=== PATIENT | female | born 1965 | race African-American/Black ===

== ENCOUNTER 2017-08-03 13:52 | Inpatient (IN) | payer OTHER ==
[~2017-08-03] VITALS: Ht 165.1 cm; Wt 80.8 kg
--- NOTE | 2017-08-03 14:29 | NUR ---
MS RN OPENING NOTES RECEIVED CLINICAL TRIAL PT FROM DR. VIRGEN'S OFFICE. PT IS A/O X4. NO SOB OR SIGNS OF DISTRESS NOTED. BREATHING IS EVEN AND UNLABORED. PT'S BELONGINGS WERE ACCOUNTED FOR. BELONGINGS FORM SIGNED BY PT. CIGARETTE AND COFFEE URN ATTENDANT PLACED IN THE DRAWER BY THE NURSES STATION. PT. MADE AWARE OF SMOKING TIMES. PT ORIENTED TO THE ROOM AND UNIT. PT VERBALIZED UNDERSTANDING. ORDERS ACKNOWLEDGED FROM THE MD. WILL INPUT ORDERS AND BEGIN ADMISSION PROCESS.
[2017-08-03] MEDS ORDERED: MAGNESIUM HYDROXIDE 30 ML UDC PO PRN (15:30)
[2017-08-03] MEDS ORDERED: IBUPROFEN 200 MG TABLET PO PRN (15:30)
[2017-08-03] MEDS ORDERED: ACETAMINOPHEN ES 500 MG TABLET PO PRN (15:30)
[2017-08-03] MEDS ORDERED: MAG HYDROX/AL HYDROX/SIMETH 30 ML UDC PO PRN (15:30)
[2017-08-03 16:00] VITALS: BP 106/72
[2017-08-03 16:22] VITALS: BP 106/72
--- NOTE | 2017-08-03 19:00 | NUR ---
MS RN OPENING NOTES RECEIVE PT RESTING IN BED, A/OX 4. NO S/S OF DISTRESS OR SOB. SAFETY MEASURES IN PLACE, ON LOW BED TO ENSURE SAFETY. CALL LIGHT WITHIN REACH. WILL CONTINUE TO MONITOR
--- NOTE | 2017-08-03 19:04 | NUR ---
MS RN CLOSING NOTES PT. REMAINS STABLE SINCE ARRIVAL. NO CHANGES IN MOOD OR BEHAVIOR DURING SHIFT. ALL NEEDS WERE ANTICIPATED FOR AND MET ALL ORDERS CARRIED OUT ACCORDINGLY. WILL ENDORSE TO NIGHTSHIFT NURSE FOR RANDOLPH
[2017-08-03 20:00] VITALS: BP 106/72
[2017-08-03 20:10] VITALS: BP 106/72
[2017-08-03] MEDS: ARIPIPRAZOLE 5 MG TABLET PO SCH (21:54)
[2017-08-03] MEDS: MIRTAZAPINE 15 MG TABLET PO SCH (21:55)
--- NOTE | 2017-08-04 06:45 | NUR ---
MS RN CLOSING NOTES PATIENT STILL COMFORTABLY ASLEEP AND EASILY AWAKEN, HEAD OF BED ELEVATED FOR BETTER LUNG EXPANSION AND GOOD CIRCULATION. NO PSYCHIATRIC INSTABILITY. RESPIRATIONS EVEN AND UNLABORED, NO S/S OF DISTRESS NOTED, PATIENT IN STABLE CONDITION, NO COMPLAINS OF PAIN AT THIS TIME 0/10. NURSING CARE RENDERED, NEEDS ATTENDED AND ANTICIPATED, KEPT CLEAN AND DRY AND COMFORTABLE, GOOD SKIN CARE PROVIDED.FREQUENT VISUAL CHECK DONE FOR SAFETY EVERY 2 HOURS. OFFLOAD AT ALL TIMES. SAFE HAZARD FREE ENVIRONMENT PROVIDED. CALL LIGHT WITHIN EASY TO REACH, ON LOW BED AT ALL TIMES TO ENSURE SAFETY, WILL ENDORSE TO THE NEXT SHIFT CONTINUE PLAN OF CARE.
--- NOTE | 2017-08-04 07:33 | NUR ---
MS RN INITIAL NOTES REPORT RECEIVED AT THE BEDSIDE. PATIENT IS SLEEPING. NO SOB OR DISTRESS NOTED AT THIS TIME. PATIENT DOES NOT APPEAR TO BE IN PAIN, NO FACIAL GRIMACE NOTED. BED IN A LOW POSITION, CALL LIGHT WITHIN PATIENT REACH. WILL CONTINUE TO MONITOR.
[2017-08-04 08:00] VITALS: BP 113/69
--- NOTE | 2017-08-04 08:45 | NUR ---
RN NOTES PATIENT AWAKE, NO COMPLAINTS OF PAIN OR AGITATION. PATIENT DENIES SI/HI. PATIENT STATES SHE WAS HEARING SOME VOICES LAST NIGHT, BUT NOT AT THIS MOMENT. EXPLAINED TO PATIENT TO INFORM ME OF ANYTHING SHE NEEDS OR WITH ANY CONCERNS.
[2017-08-04] MEDS ORDERED: ARIP30TA PO (09:54)
[2017-08-04] MEDS ORDERED: DIPH25CA6 PO (09:54)
[2017-08-04 16:00] VITALS: BP 114/73
--- NOTE | 2017-08-04 18:37 | NUR ---
RN CLOSING NOTES NO SIGNIFICANT CHANGES IN PATIENT CONDITION THROUGHOUT THE SHIFT. NO SOB OR DISTRESS NOTED AT THIS TIME. PATIENT DENIES PAIN. BED IN A LOW POSITION, CALL LIGHT WITHIN PATIENT REACH, SITTER IS AT THE BEDSIDE. WILL ENDORSE FOR RANDOLPH.
--- NOTE | 2017-08-04 19:00 | NUR ---
MS RN OPENING NOTES RECEIVE PT RESTING IN BED, A/OX 2. NO S/S OF RESPIRATORY DISTRESS OR SOB. SAFETY MEASURES IN PLACE, ON LOW BED TO ENSURE SAFETY. CALL LIGHT WITHIN REACH. WILL CONTINUE TO MONITOR Addendum: 08/05/17 at 0709 by KISHORE DURAN RN ADDENDUM: PT A/O X 4,
[2017-08-04 20:00] VITALS: BP 121/72
[2017-08-04] MEDS: ARIPIPRAZOLE 5 MG TABLET PO SCH (21:43)
[2017-08-04] MEDS: MIRTAZAPINE 15 MG TABLET PO SCH (21:44)
[2017-08-04 22:53] VITALS: BP 121/72
--- NOTE | 2017-08-05 07:10 | NUR ---
MS RN CLOSING NOTES PATIENT ASLEEP AND EASILY AWAKEN, IN STABLE CONDITION, NO CHANGE OF CONDITION THROUGHOUT THE SHIFT. SEMI FOWLERS, NO PSYCHIATRIC INSTABILITY. RESPIRATIONS EVEN AND UNLABORED, APPEARS NOT IN RESPIRATORY DISTRESS.TOLERATING ROOM AIR 02 SAT 98% NO COMPLAINS OF PAIN AT THIS TIME. NURSING CARE RENDERED, KEPT CLEAN AND DRY AND COMFORTABLE, NEEDS ATTENDED AND ANTICIPATED,GOOD SKIN CARE PROVIDED. SAFE HAZARD FREE ENVIRONMENT PROVIDED. OFFLOAD AT ALL TIMES. CALL LIGHT WITHIN EASY TO REACH, FREQUENT VISUAL CHECK DONE FOR SAFETY EVERY 2 HOURS.ON LOW BED AT ALL TIMES TO ENSURE SAFETY, WILL ENDORSE TO THE NEXT SHIFT CONTINUE PLAN OF CARE
[2017-08-05 08:00] VITALS: BP 113/71
[2017-08-05 16:00] VITALS: BP 125/89
--- NOTE | 2017-08-05 18:44 | NUR ---
RN CLOSING NOTES NO SIGNIFICANT CHANGES IN PATIENT CONDITION THROUGHOUT THE SHIFT. NO SOB OR DISTRESS NOTED AT THIS TIME. PATIENT DENIES PAIN AT THIS TIME. BED IN A LOW POSITION, CALL LIGHT WITHIN PATIENT REACH. WILL ENDORSE FOR RANDOLPH.
[2017-08-05 20:00] VITALS: BP 117/73
[2017-08-05] MEDS: MIRTAZAPINE 15 MG TABLET PO SCH (21:28)
[2017-08-05] MEDS: ARIPIPRAZOLE 5 MG TABLET PO SCH (21:28)
[2017-08-05] MEDS: ZOLPIDEM TARTRATE 10 MG TABLET PO PRN (21:35)
[2017-08-05] MEDS: LORAZEPAM 1 MG TABLET FOR INSOMNIA PO PRN (21:36)
--- NOTE | 2017-08-06 06:50 | NUR ---
MS RN NOTES AWAKE & RESPONSIVE. NOT IN ANY DISTRESS. NO SOB NOTED. DENIES ANY PAIN OR DISCOMFORT AT THIS TIME. WITH IV-HL PATENT & INTACT. MONITORED ACCORDINGLY. SLEPT FOR 8 HOURS. CALL LIGHT WITHIN REACH. BED IN LOWEST POSITION. SR UP X 2 FOR SAFETY. WILL ENDORSE TO NEXT SHIFT.
--- NOTE | 2017-08-06 07:30 | NUR ---
MS RN AM NOTES PT ASLEEP, AROUSES TO NAME AND TOUCH, AAO X 4, ON ROOM AIR, NOT IN ANY DISTRESS. DENIES ANY PAIN AT THIS TIME. NO IV ACCESS. AMBULATORY, NO SKIN ISSUES. CALL LIGHT WITHIN REACH. BED LOW LOCKED. SR UP X 2, INSTRUCTED TO CALL FOR ASSISTANCE. SAFETY MEASURES IN PLACE. WILL CONTINUE TO MONITOR.
[2017-08-06 08:00] VITALS: BP 122/70
--- NOTE | 2017-08-06 14:24 | NUR ---
MS RN NOTES DR. VIRGEN AT BEDSIDE.
[2017-08-06] MEDS: LORAZEPAM 1 MG TABLET FOR AGITATION PO PRN (15:40)
[2017-08-06 16:00] VITALS: BP 116/75
--- NOTE | 2017-08-06 18:09 | NUR ---
MS RN NOTES PT RESTING IN BED, AAO X 4, ON ROOM AIR, NOT IN ANY DISTRESS. DENIES ANY PAIN AT THIS TIME. NO IV ACCESS. AMBULATORY, NO SKIN ISSUES. CALL LIGHT WITHIN REACH. BED LOW LOCKED. SR UP X 2, INSTRUCTED TO CALL FOR ASSISTANCE. VSS. SAFETY MEASURES IN PLACE. ALL NEEDS MET. WILL ENDORSE TO NEXT SHIFT FOR RANDOLPH.
--- NOTE | 2017-08-06 20:00 | NUR ---
MS RN NOTED: PATIENT RESTING IN BED, NO ACUTE DISTRESS NOTED. BREATHING EVEN AND UNLABORED, NO SOB NOTED. PATIENT CALM AND COOPERATIVE AT THIS TIME. BED LOCKED AND IN LOWEST POSITION, CALL LIGHT IN REACH, WILL CONTINUE TO MONITOR.
[2017-08-06 20:51] VITALS: BP 115/76
[2017-08-06] MEDS: ARIPIPRAZOLE 5 MG TABLET PO SCH (21:53)
[2017-08-06] MEDS: MIRTAZAPINE 15 MG TABLET PO SCH (21:53)
[2017-08-06] MEDS: ZOLPIDEM TARTRATE 10 MG TABLET PO PRN (22:37)
[2017-08-06] MEDS: LORAZEPAM 1 MG TABLET FOR INSOMNIA PO PRN (22:37)
--- NOTE | 2017-08-06 22:45 | NUR ---
MS RN NOTE: PATIENT REQUEST FOR ANXIETY MEDICATION AND SLEEP MEDICATIONS. ATIVAN 1MG ORAL AND AMBIEN 10MG GIVEN PER MD ORDER. WILL CONTINUE TO MONITOR.
--- NOTE | 2017-08-07 06:10 | NUR ---
MS RN NOTED: PATIENT RESTING IN BED, NO ACUTE DISTRESS NOTED. BREATHING EVEN AND UNLABORED, NO SOB NOTED. PATIENT WAS CALM AND COOPERATIVE THROUGHOUT SHIFT. PATIENT SLEPT ABOUT 7 HOURS. BED LOCKED AND IN LOWEST POSITION, CALL LIGHT IN REACH, WILL ENDORSE TO DAY NURSE TO CONTINUE WITH PLAN OF CARE.
[2017-08-07 08:00] VITALS: BP 103/70
[2017-08-07] MEDS: LORAZEPAM 1 MG TABLET FOR AGITATION PO PRN (10:25)
[2017-08-07 16:00] VITALS: BP 107/71
[2017-08-07 18:00] VITALS: BP 107/71
--- NOTE | 2017-08-07 18:54 | NUR ---
MS RN NOTES PT RESTING IN BED, AAO X 4, ON ROOM AIR, NOT IN ANY DISTRESS. DENIES ANY PAIN AT THIS TIME. NO IV ACCESS. AMBULATORY, NO SKIN ISSUES. CALL LIGHT WITHIN REACH. BED LOW LOCKED. SR UP X 2, INSTRUCTED TO CALL FOR ASSISTANCE. VSS. SAFETY MEASURES IN PLACE. ALL NEEDS MET. WILL ENDORSE TO NEXT SHIFT FOR RANDOLPH. PT SEEN BY DR. VIRGEN - NO NEW ORDERS.
[2017-08-07 20:00] VITALS: BP 124/80
[2017-08-07] MEDS: MIRTAZAPINE 15 MG TABLET PO SCH (22:14)
[2017-08-07] MEDS: ARIPIPRAZOLE 5 MG TABLET PO SCH (22:14)
--- NOTE | 2017-08-07 23:00 | NUR ---
MS RN NOTE: PATIENT REQUEST FOR ANXIETY MEDICATION AND SLEEP MEDICATIONS. ATIVAN 1MG ORAL AND AMBIEN 10MG GIVEN PER MD ORDER. WILL CONTINUE TO MONITOR.
[2017-08-07] MEDS: LORAZEPAM 1 MG TABLET FOR INSOMNIA PO PRN (23:01)
[2017-08-07] MEDS: ZOLPIDEM TARTRATE 10 MG TABLET PO PRN (23:01)
--- NOTE | 2017-08-08 07:15 | NUR ---
MS RN OPENING RECEIVED PATIENT A/OX4 DENIES SOB, DIFFICULTY BREATHING OR PAIN. ALL NEEDS MET AND IN REACH. CALL LIGHT IN REACH, BED LOWERED AND LOCKED, RAILS UPX3 FOR SAFETY AND WILL ROUND Q2H OR LESS PER NEEDS
[2017-08-08 08:00] VITALS: BP 106/68
[2017-08-08] MEDS: LORAZEPAM 1 MG TABLET FOR AGITATION PO PRN ×2 (11:00→17:09)
--- NOTE | 2017-08-08 19:37 | NUR ---
MS RN CLOSING PATIENT STABLE NO COMPLICATIONS NO CHANGES. ALL NEEDS MET. CARE ENDORSED TO FELIZ CONLEY FOR RANDOLPH
--- NOTE | 2017-08-08 19:40 | NUR ---
MS/RN OPENING NOTES PT AWAKE, SITTING IN THE CHAIR. A/OX4. ON RA, BREATHING EVEN AND UNLABORED. DENIES SOB, PAIN OR ANXIETY AT THIS TIME. BED IN LOW/LOCKED POSITION, CALL LIGHT IN REACH. SIDE RAILS UPX2. WILL CONTINUE TO MONITOR
[2017-08-08 20:00] VITALS: BP 120/75
[2017-08-08] MEDS ORDERED: MIRTAZAPINE 15 MG TABLET PO SCH (22:00)
[2017-08-08] MEDS: ARIPIPRAZOLE 5 MG TABLET PO SCH (22:04)
[2017-08-08] MEDS: LORAZEPAM 1 MG TABLET FOR INSOMNIA PO PRN (23:12)
[2017-08-08] MEDS: ZOLPIDEM TARTRATE 10 MG TABLET PO PRN (23:12)
--- NOTE | 2017-08-09 07:30 | NUR ---
MS/RN Patient received Patient received from shift nurse manager. No needs at this time, call light within reach, will continue to monitor to ensure safety.
--- NOTE | 2017-08-09 07:40 | NUR ---
MS/RN CLOSING NOTES PT AWAKE, SITTING IN THE CHAIR. A/OX4. ON RA, BREATHING EVEN AND UNLABORED. DENIES SOB OR PAIN AT THIS TIME. SLEPT APPROX. 6HOURS LAST NIGHT. ALL NEEDS MET AND ATTENDED. BED IN LOW/LOCKED POSITION WITH CALL LIGHT IN REACH. SIDE RAILS UPX2. ENDORSED TO AM SHIFT RANDOLPH.
[2017-08-09 08:00] VITALS: BP 110/71
--- NOTE | 2017-08-09 10:30 | NUR ---
MS/ordering box operator Patient stating that she continues to hear voices but does not have report any visual hallucinations.
[2017-08-09] MEDS: LORAZEPAM 1 MG TABLET FOR AGITATION PO PRN ×2 (11:07→17:09)
--- NOTE | 2017-08-09 11:10 | NUR ---
MS/RN Ativan 1mg ativan given at patient's request.
[2017-08-09 16:00] VITALS: BP 98/66
--- NOTE | 2017-08-09 17:10 | NUR ---
MS/RN Ativan Img ativan administered at 1705 per patient request.
--- NOTE | 2017-08-09 18:15 | NUR ---
MS/RN End note Patient remains calm and cooperative throughout the shift. No behavior concerns, continues to admit to auditory hallucinations. Awaiting review by Dr Andersen, will start trial medications tomorrow. Will endorse to lathe hand.
--- NOTE | 2017-08-09 19:30 | NUR ---
MS/RN OPENING NOTES PT RECEIVED WITH EYES CLOSED IN BED. EASILY AROUSABLE. BREATHING EVEN AND UNLABORED. PT AWARE OF NPO STATUS TONIGHT AT 2100. ADMITS TO AUDITORY HALLUCINATIONS, NO THOUGHTS OF S/I. BED IN LOW/LOCKED POSITION. CALL LIGHT IN REACH. SIDE RAILS UPX2. WILL CONTINUE TO MONITOR
[2017-08-09 20:00] VITALS: BP 101/60
--- NOTE | 2017-08-09 21:30 | NUR ---
MS/RN NOTES SPOKE TO DR. VIRGEN. OKAY TO HAVE WATER AND SMOKE PER HOSPITAL SCHEDULE.
--- NOTE | 2017-08-10 07:25 | NUR ---
MS/RN CLOSING NOTES PT AWAKE, ON ROOM AIR, BREATHING EVEN AND UNLABORED. DENIES SOB OR PAIN. REMAINED NPO SINCE 2099 YESTERDAY. PT SLEPT APPROX 6 HOURS LAST NIGHT. MADE PT COMFORTABLE DURING SHIFT. BED IN LOW/LOCKED POSITION WITH CALL LIGHT IN REACH. SIDE RAILS UPX2. ENDORSED TO AM SHIFT RANDOLPH.
--- NOTE | 2017-08-10 07:30 | NUR ---
MS/RN Patient received Patient received from shift production supervisor. No needs at this time, will continue to monitor.
[2017-08-10 08:00] VITALS: BP 106/68
[2017-08-10] MEDS: INVEST MED MK-8189 MISC 1 TAB EA PO SCH (09:00)
[2017-08-10] MEDS: INVEST MED MK-8189 MISC 1 CAP EA PO SCH (09:00)
--- NOTE | 2017-08-10 09:53 | NUR ---
MS/RN Diet Patient back from Dr Andersen's office, may now eat and drink. First dose of investigational medication given in office.
[2017-08-10] MEDS: LORAZEPAM 1 MG TABLET FOR AGITATION PO PRN ×2 (10:42→17:12)
--- NOTE | 2017-08-10 13:52 | NUR ---
MS/RN Rounds Patient cooperative with plan of care at this time. Will continue to mintiro and ensure safety.
[2017-08-10 16:00] VITALS: BP 107/66
--- NOTE | 2017-08-10 18:16 | NUR ---
MS/RN End note Patient has remained calm and cooperative throughout the shift, no behavioral concerns. Last ativan given at 1710 (1mg). Seen by Dr Andersen - no new orders. Will endorse to manager integration.
--- NOTE | 2017-08-10 19:30 | NUR ---
MS RN OPENING NOTES: PATIENT IN BED, AOX4, ON ROOM AIR, BREATHING EVEN AND UNLABORED. APPEARS CALM AND IN NO DISTRESS. DENIES PAIN. ALSO DENIES ANY VISUAL OR AUDITORY HALLUCINATION AT THIS TIME. PROVIDED FOR COMFORT AND SAFETY. BED IN LOWEST AND LOCKED POSITION, SIDERAILS UPX2. WILL CONT TO MONITOR.
[2017-08-10 20:00] VITALS: BP 110/72
[2017-08-10] MEDS: LORAZEPAM 1 MG TABLET FOR INSOMNIA PO PRN (22:10)
--- NOTE | 2017-08-11 06:56 | NUR ---
MS RN CLOSING NOTES: PATIENT IN BED, AOX4, ON ROOM AIR, BREATHING EVEN AND UNLABORED. APPEARS CALM AND IN NO DISTRESS. NO VERBALIZATION OF ANY AUDITORY OR VISUAL HALLUCINATION THROUGH SHIFT. WAS ABLE TO HAVE 7 HRS OF SLEEP. PROVIDED FOR COMFORT AND SAFETY. BED IN LOWEST AND LOCKED POSITION. SIDERAILS UPX2. NO ACUTE CHANGE IN CONDITION NOTED THROUGH SHIFT. WILL ENDORSE TO AM RN FOR RANDOLPH.
--- NOTE | 2017-08-11 07:25 | NUR ---
RN Initial Notes: Patient resting in bed. Patient alert oriented x4. Non-labored breathing noted on room air.Patient appears calm. No hallucinations noted. Patient denies pain. Bed in lowest locked position. Call light within reach. Will continue to monitor
[2017-08-11 08:00] VITALS: BP 109/70
[2017-08-11] MEDS: INVEST MED MK-8189 MISC 1 CAP EA PO SCH (09:16)
[2017-08-11] MEDS: INVEST MED MK-8189 MISC 1 TAB EA PO SCH (09:16)
--- NOTE | 2017-08-11 11:00 | NUR ---
RN Notes: Patient's facial expressions and body movements indicate anxiety. Patient educated to rest and take deep breaths. Ativan to be administered
[2017-08-11] MEDS: LORAZEPAM 1 MG TABLET FOR AGITATION PO PRN (11:15)
[2017-08-11 16:00] VITALS: BP 112/72
--- NOTE | 2017-08-11 19:30 | NUR ---
RN Closing Notes: Patient resting in bed. Patient alert oriented x4. Non-labored breathing noted on room air.Patient appears calm. No hallucinations noted. No shortness of breath noted. Patient denies pain. Bed in lowest locked position. Call light within reach. Endorsed to next shift
--- NOTE | 2017-08-11 19:30 | NUR ---
RN OPENING NOTES: PATIENT SITTING ON CHAIR, AOX4, ON ROOM AIR, BREATHING EVEN AND UNLABORED. APPEARS CALM AND IN NO DISTRESS. DENIES ANY VISUAL OR AUDITORY HALLUCINATION AT THIS TIME. PROVIDE FOR COMFORT AND SAFETY. WILL CONT TO MONITOR.
[2017-08-11 20:00] VITALS: BP 108/63
[2017-08-11] MEDS: LORAZEPAM 1 MG TABLET FOR INSOMNIA PO PRN (21:09)
[2017-08-11] MEDS: ZOLPIDEM TARTRATE 10 MG TABLET PO PRN (22:07)
--- NOTE | 2017-08-11 23:10 | NUR ---
RN NOTES: PATIENT STILL UNABLE TO SLEEP AND REQUESTED FOR SLEEP AID. ADMINISTERED AMBIEN 10 MG PO. EDUCATED PATIENT RE RISK OF FALL, PT VERBALIZED AGREEMENT.
--- NOTE | 2017-08-12 06:23 | NUR ---
MS RN CLOSING NOTES: PATIENT IN BED, AOX4, ON ROOM AIR, BREATHING EVEN AND UNLABORED. APPEARS CALM AND IN NO DISTRESS. DID NOT VERBALIZE HAVING ANY VISUAL OR AUDITORY HALLUCINATION. PATIENT WAS ABLE TO HAVE 7 HRS OF SLEEP. PROVIDED FOR COMFORT AND SAFETY. BED IN LOWEST AND LOCKED POSITION, SIDERAILS UPX3. WILL ENDORSE TO AM RN FOR RANDOLPH.
--- NOTE | 2017-08-12 07:30 | NUR ---
MS/RN Patient received Patient received from awake overnight counselor. No needs at this time, calm and cooperative with plan of care. Will continue to monitor and ensure safety.
[2017-08-12 08:00] VITALS: BP 104/71
[2017-08-12] MEDS: INVEST MED MK-8189 MISC 1 TAB EA PO SCH (08:10)
[2017-08-12] MEDS: INVEST MED MK-8189 MISC 1 CAP EA PO SCH (08:10)
--- NOTE | 2017-08-12 09:00 | NUR ---
MS/RN Medications Investigational medications administered as ordered (one pill, one capsule). Starting tomorrow, dose to be increased to two pills and two capsules for three days.
[2017-08-12] MEDS: LORAZEPAM 1 MG TABLET FOR AGITATION PO PRN ×2 (10:11→16:21)
--- NOTE | 2017-08-12 10:20 | NUR ---
MS/RN Ativan 1mg ativan administered at patients request.
--- NOTE | 2017-08-12 11:26 | NUR ---
MS/RN Hallucinations Patient admits to hearing voices and to one episode of visual hallucination, stated that she saw somebody outside the window. Will continue to monitor and ensure safety.
[2017-08-12 16:00] VITALS: BP 111/73
--- NOTE | 2017-08-12 16:28 | NUR ---
MS/RN Ativan 1mg ativan given per patient request for anxiety.
[2017-08-12 16:59] VITALS: BP 111/73
--- NOTE | 2017-08-12 18:15 | NUR ---
MS/RN End note Patient remained calm and cooperative throughout the shift, no behavior concerns or outbursts. Partner at bedside, all questions and concerns addressed. Will continue to monitor and endorse to restaurant shift leader.
--- NOTE | 2017-08-12 19:30 | NUR ---
MS RN OPENING NOTES: PATIENT SITTING ON CHAIR, AOX4, ON ROOM AIR, BREATHING EVEN AND UNLABORED. APPEARS CALM AND IN NO DISTRESS. DENIES ANY VISUAL OR AUDITORY HALLUCINATION. PROVIDED FOR COMFORT AND SAFETY. BED IN LOWEST AND LOCKED POSITION, SIDERAILS UP X3. WILL CONT TO MONITOR.
[2017-08-12 20:00] VITALS: BP 108/68
[2017-08-12] MEDS: LORAZEPAM 1 MG TABLET FOR INSOMNIA PO PRN (22:02)
[2017-08-12] MEDS: ZOLPIDEM TARTRATE 10 MG TABLET PO PRN (23:00)
--- NOTE | 2017-08-13 06:47 | NUR ---
MS RN CLOSING NOTES: PATIENT IN BED, ASLEEP AT THIS TIME, ON ROOM AIR, BREATHING EVEN AND UNLABORED. APPEARS CALM AND IN NO DISTRESS. DID NOT VERBALIZE HAVING ANY VISUAL OR AUDITORY HALLUCINATION. PATIENT WAS ABLE TO HAVE 8 HRS OF SLEEP. PROVIDED FOR COMFORT AND SAFETY. BED IN LOWEST AND LOCKED POSITION, SIDERAILS UPX3. WILL ENDORSE TO AM RN FOR RANDOLPH.
--- NOTE | 2017-08-13 07:25 | NUR ---
ms rn initial notes Clinical trial patient: Received in bed, asleep, head fo bed elevated, no SOB or distress noted, on room air and tolerated well. No IV access. Stable at this time. Kept patient clean and comfortable in bed, call light with in patient reach, will continue to monitor accordingly.
[2017-08-13 08:00] VITALS: BP 113/73
[2017-08-13] MEDS: INVEST MED MK-8189 MISC 2 TAB EA PO SCH (08:59)
[2017-08-13] MEDS: INVEST MED MK-8189 MISC 2 CAP EA PO SCH (08:59)
[2017-08-13] MEDS: LORAZEPAM 1 MG TABLET FOR AGITATION PO PRN ×2 (09:53→16:35)
[2017-08-13 16:00] VITALS: BP 118/70
--- NOTE | 2017-08-13 19:29 | NUR ---
ms rn closing notes All needs provided, attended, and anticipated. Endorsed to next shift RN to continue care.
[2017-08-13 20:01] VITALS: BP 100/65
[2017-08-13] MEDS: ZOLPIDEM TARTRATE 10 MG TABLET PO PRN (22:18)
[2017-08-13] MEDS: LORAZEPAM 1 MG TABLET FOR INSOMNIA PO PRN (22:18)
--- NOTE | 2017-08-13 22:30 | NUR ---
MS RN NOTE: PATIENT REQUEST FOR ANXIETY MEDICATION AND SLEEP MEDICATIONS. ATIVAN 1MG ORAL AND AMBIEN 10MG GIVEN PER MD ORDER. WILL CONTINUE TO MONITOR.
--- NOTE | 2017-08-14 07:14 | NUR ---
ms rn initial notes Received patient in bed, asleep, head of bed elevated, no SOB or distress noted, on room air and tolerated well. No IV access MD aware. No facial grimace noted. Kept patient clean and comfortable in bed, call light with in patient reach, will continue to monitor accordingly. Alert and oriented x 4, verbally responsive and able to make needs known.
[2017-08-14 08:00] VITALS: BP_SYST 105; BP_SYST 120; BP_DIAS 71
[2017-08-14] MEDS: INVEST MED MK-8189 MISC 2 TAB EA PO SCH (08:52)
[2017-08-14] MEDS: INVEST MED MK-8189 MISC 2 CAP EA PO SCH (08:52)
[2017-08-14] MEDS: LORAZEPAM 1 MG TABLET FOR AGITATION PO PRN (10:04)
[2017-08-14 16:00] VITALS: BP_SYST 114; BP_SYST 115; BP_DIAS 66; BP_DIAS 71
--- NOTE | 2017-08-14 19:12 | NUR ---
ms rn closing notes All needs provided, attended, and anticipated. Kept patient clean and comfortable in bed, call light with in patient reach, endorsed to next shift RN to continue care.
[2017-08-14 20:00] VITALS: BP 106/71
[2017-08-14] MEDS: LORAZEPAM 1 MG TABLET FOR INSOMNIA PO PRN (21:47)
--- NOTE | 2017-08-14 23:00 | NUR ---
MS2/RN PATIENT IS SLEEPING AT THIS TIME, APPEAR COMFORTABLE, NO DISTRESS NOTED, CALL LIGHT IN REACH. WILL MONITOR.
--- NOTE | 2017-08-15 06:16 | NUR ---
MS/RN PATIENT STILL SLEEPING, APPEAR COMFORTABLE, BREATHING EVEN AND UNLABORED, CALL LIGHT IN REACH. WILL CONTINUE TO MONITOR.
--- NOTE | 2017-08-15 08:00 | NUR ---
MS PIPER AM CLINICAL TRIAL NOTES: PATIENT SITTING ON CHAIR, AOX4, ON ROOM AIR, BREATHING EVEN AND UNLABORED. APPEARS CALM AND IN NO DISTRESS. DENIES ANY VISUAL OR AUDITORY HALLUCINATION. PT COMPLIANT WITH CLINICAL MEDS GIVEN. PROVIDED COMFORT AND SAFETY.WITH SMOKING PRIVILEGES PER PROTOCOL. BED IN LOWEST AND LOCKED POSITION, SIDERAILS UP X3. WILL CONT TO MONITOR.
[2017-08-15 08:17] VITALS: BP 97/65
[2017-08-15] MEDS: INVEST MED MK-8189 MISC 2 CAP EA PO SCH (08:57)
[2017-08-15] MEDS: INVEST MED MK-8189 MISC 2 TAB EA PO SCH (08:57)
[2017-08-15 16:23] VITALS: BP 108/64
--- NOTE | 2017-08-15 18:00 | NUR ---
PT SITTING IN BED.FOLLOWS SMOKING PRIVILEGES PER HOSPITAL PROTOCOL.DENIES PAIN OR DISTRESS.PLEASANT TO STAFF.
--- NOTE | 2017-08-15 20:00 | NUR ---
MS2/RN RECEIVE PATIENT AWAKE, ALERT, ORIENTED, COMFORTABLY SITING IN CHAIR AT BEDSIDE, NO C/O PAIN, NO DISTRESS NOTED, CALL LIGHT IN REACH, WILL CONTINUE TO MONITOR.
[2017-08-15 20:01] VITALS: BP 104/62
[2017-08-15] MEDS: LORAZEPAM 1 MG TABLET FOR INSOMNIA PO PRN (21:42)
--- NOTE | 2017-08-16 | NUR ---
MS2/RN PATIENT IS SLEEPING AT THIS TIME, AROUSABLE, NO DISTRESS NOTED, CALL LIGHT IN REACH. WILL CONTINUE TO MONITOR.
--- NOTE | 2017-08-16 06:20 | NUR ---
MS2/RN STILL SLEEPING, AROUSABLE, COMFORTABLE, ALL NEEDS ATTENDED AT THIS TIME. ALL NEEDS ATTENDED AT THIS TIME. WILL CONTINUE TO MONITOR.
--- NOTE | 2017-08-16 07:30 | NUR ---
MS/RN Patient received Patient received from cake winder. All needs attended, call light within reach, will continue to monitor and ensure safety.
[2017-08-16] MEDS: INVEST MED MK-8189 MISC 3 CAP EA PO SCH (07:48)
[2017-08-16] MEDS: INVEST MED MK-8189 MISC 3 TAB EA PO SCH (07:48)
[2017-08-16 08:00] VITALS: BP 111/68
--- NOTE | 2017-08-16 09:00 | NUR ---
MS/RN Medications Investigational medications (three pills/three capsules) administered as ordered.
--- NOTE | 2017-08-16 13:47 | NUR ---
MS/RN Hallucinations Patient admits to having auditory hallucinations and some visual disturbances, stated that she has been seeing shadows.
[2017-08-16 16:00] VITALS: BP 98/62
--- NOTE | 2017-08-16 18:23 | NUR ---
MS/RN End note No changes in plan of care. Has remained calm and cooperative throughout shift, no behavior concerns. Call light within reach, will endorse to overnight houseperson. PER STUDY ORDERS, NO ATIVAN TO BE GIVEN AFTER [address] REVIEWED BY DR VIRGEN TOMORROW.
[2017-08-16 20:00] VITALS: BP 97/64
--- NOTE | 2017-08-17 06:47 | NUR ---
MS RN NOTES AWAKE & RESPONSIVE. NOT IN ANY DISTRESS. NO SOB NOTED. DENIES ANY PAIN OR DISCOMFORT AT THIS TIME. SLEPT FOR 8 HOURS. MONITORED ACCORDINGLY. CALL LIGHT WITHIN REACH. BED IN LOWEST POSITION. SR UP X 2 FOR SAFETY. WILL ENDORSE TO NEXT SHIFT.
--- NOTE | 2017-08-17 07:30 | NUR ---
MS/RN Patient received Patient received from night warehouse manager. No needs at this time, denies pain or discomfort. Call light within reach, will continue to monitor and ensure safety.
[2017-08-17] MEDS: INVEST MED MK-8189 MISC 3 CAP EA PO SCH (07:51)
[2017-08-17] MEDS: INVEST MED MK-8189 MISC 3 TAB EA PO SCH (07:52)
[2017-08-17 08:00] VITALS: BP 109/68
--- NOTE | 2017-08-17 08:08 | NUR ---
MS/RN Medications Trial medications administered as ordered. (three pill/three capsules)
[2017-08-17 08:25] VITALS: BP 109/68
[2017-08-17] MEDS: LORAZEPAM 1 MG TABLET FOR AGITATION PO PRN (13:48)
--- NOTE | 2017-08-17 13:51 | NUR ---
MS/RN Ativan Ativan 1mg removed from pyxis but dropeed on floor by patient. Second pill removed and administered.
[2017-08-17 16:00] VITALS: BP 106/55
[2017-08-17 16:35] VITALS: BP 108/55
--- NOTE | 2017-08-17 18:52 | NUR ---
MS/RN End note No changes in plan of care, will endorse to cnc service technician.
[2017-08-17 20:00] VITALS: BP 99/68
[2017-08-17] MEDS: LORAZEPAM 1 MG TABLET FOR INSOMNIA PO PRN (21:28)
[2017-08-17] MEDS: ZOLPIDEM TARTRATE 10 MG TABLET PO PRN (21:28)
--- NOTE | 2017-08-17 21:30 | NUR ---
MS RN NOTE: PATIENT REQUEST FOR ANXIETY MEDICATION AND SLEEP MEDICATIONS. ATIVAN 1MG ORAL AND AMBIEN 10MG GIVEN PER MD ORDER. WILL CONTINUE TO MONITOR.
[2017-08-18 08:00] VITALS: BP 112/73
[2017-08-18] MEDS: INVEST MED MK-8189 MISC 3 TAB EA PO SCH (08:06)
[2017-08-18] MEDS: INVEST MED MK-8189 MISC 3 CAP EA PO SCH (08:06)
[2017-08-18 16:00] VITALS: BP 95/62
--- NOTE | 2017-08-18 19:14 | NUR ---
RN CLOSING NOTES NO SIGNIFICANT CHANGE IN PATIENT CONDITION. NO SOB OR DISTRESS NOTED AT THIS TIME. PATIENT DENIES PAIN AT THIS TIME. BED IN A LOW POSITION, CALL LIGHT WITHIN PATIENT REACH. ENDORSED FOR RANDOLPH.
--- NOTE | 2017-08-18 19:45 | NUR ---
MS RN NOTES RECEIVED ON BED SLEEPING,AROUSABLE TO VERBAL STIMULI.COMPLIANT WITH MEDS AND FOLLOW INSTRUCTIONS.WILL CONTINUE TO MONITOR BEHAVIOR.
[2017-08-18 20:00] VITALS: BP 96/65
[2017-08-18 21:00] VITALS: BP 96/65
--- NOTE | 2017-08-19 06:11 | NUR ---
MS RN NOTES SLEPT MORE THAN 8 HOURS LAST NIGHT WITHOUT PHARMACOLOGICAL INTERVENTION.WILL CONTINUE TO MONITOR BEHAVIOR .WILL ENDORSE TO DAY NURSE FOR RANDOLPH.
[2017-08-19 08:00] VITALS: BP 113/63
[2017-08-19] MEDS: INVEST MED MK-8189 MISC 3 TAB EA PO SCH (09:07)
[2017-08-19] MEDS: INVEST MED MK-8189 MISC 3 CAP EA PO SCH (09:07)
[2017-08-19 16:00] VITALS: BP 103/63
--- NOTE | 2017-08-19 19:30 | NUR ---
RN INITIAL NOTES REPORT RECEIVED AT THE BEDSIDE. PATIENT AWAKE IN BED. NO SOB OR DISTRESS NOTED AT THIS TIME. PATIENT DOES NOT APPEAR TO BE IN PAIN, NO FACIAL GRIMACE NOTED. BED IN A LOW POSITION, CALL LIGHT WITHIN PATIENT REACH. WILL CONTINUE TO MONITOR.
[2017-08-19 20:00] VITALS: BP 106/62
[2017-08-19] MEDS: LORAZEPAM 1 MG TABLET FOR INSOMNIA PO PRN (21:44)
[2017-08-19] MEDS: ZOLPIDEM TARTRATE 10 MG TABLET PO PRN (22:05)
--- NOTE | 2017-08-20 06:14 | NUR ---
RN CLOSING NOTES PATIENT IS SLEEPING. NO SOB OR DISTRESS NOTED AT THIS TIME. PATIENT DOES NOT APPEAR TO BE IN PAIN, NO FACIAL GRIMACE NOTED. BED IN A LOW POSITION, CALL LIGHT WITHIN PATIENT REACH. WILL ENDORSE TO DAY SHIFT FOR RANDOLPH.
--- NOTE | 2017-08-20 07:30 | NUR ---
RN MS NOTES PATIENT ALERT AND ORIENTED X4, CALM AND VERY PLEASANT, DENIES PAIN AT THIS TIME, NEEDS ATTENDED AND ANTICIPATED, CALL LIGHT WITHIN REACH, SAFETY MEASURES IN PLACED, WILL CONTINUE TO MONITOR.
[2017-08-20 08:00] VITALS: BP 106/66
[2017-08-20] MEDS: INVEST MED MK-8189 MISC 3 CAP EA PO SCH (08:15)
[2017-08-20] MEDS: INVEST MED MK-8189 MISC 3 TAB EA PO SCH (08:15)
[2017-08-20 16:00] VITALS: BP 102/62
--- NOTE | 2017-08-20 18:35 | NUR ---
RN MS NOTES SEEN BY DR. VIRGEN, NO S/SX OF DISTRESS, WILL ENDORSE TO SPINNING FRAME TENDER FOR RANDOLPH.
--- NOTE | 2017-08-20 19:30 | NUR ---
MS RN NOTE RECEIVED PATIENT AWAKE AND ALERT IN BED. NO PAIN OR DISCOMFORT AT THIS TIME. BED LOCKED AND IN LOWEST POSITION. SIDE RAILS UP, CALL LIGHT WITHIN REACH.
[2017-08-20 20:00] VITALS: BP_SYST 93; BP_SYST 98; BP_DIAS 57
[2017-08-20] MEDS: LORAZEPAM 1 MG TABLET FOR INSOMNIA PO PRN (21:28)
[2017-08-20] MEDS: ZOLPIDEM TARTRATE 10 MG TABLET PO PRN (21:57)
--- NOTE | 2017-08-21 06:55 | NUR ---
MS RN NOTE PATIENT STABLE. WILL ENDORSE TO DAY SHIFT FOR RANDOLPH.
--- NOTE | 2017-08-21 07:58 | NUR ---
RN NOTES RECEIVED PT. PT STABLE AND SLEEPING. A/OX4. NO S/S OF DISTRESS OR SOB. NO C/O PAIN AT THIS TIME. TRIAL MEDICATIONS RECEIVED FROM PHARMACY. SAFETY MEASURES IN PLACE, CALL LIGHT WITHIN REACH. WILL CONTINUE TO MONITOR.
[2017-08-21 08:00] VITALS: BP 113/77
[2017-08-21] MEDS: INVEST MED MK-8189 MISC 3 TAB EA PO SCH (09:04)
[2017-08-21] MEDS: INVEST MED MK-8189 MISC 3 CAP EA PO SCH (09:04)
[2017-08-21 16:00] VITALS: BP 98/68
--- NOTE | 2017-08-21 19:15 | NUR ---
RN CLOSING NOTE PT IS STABLE AND RESTING IN BEDSIDE CHAIR. NO S/S OF DISTRESS OR SOB. NO C/O PAIN AT THIS TIME. SAFETY MEASURES IN PLACE, CALL LIGHT WITHIN REACH, WILL ENDORSE TO GAS TENDER FOR RANDOLPH.
--- NOTE | 2017-08-21 19:30 | NUR ---
MS RN NOTES IN ROOM,SITTING,CHATTING WITH FRIEND ON THE PHONE.ABLE TO SAY HI TO THE NURSE.EASILY FOLLOW INSTRUCTION.WILL CONTINUE TO MONITOR BEHAVIOR.
[2017-08-21 20:00] VITALS: BP 114/74
[2017-08-21 20:04] VITALS: BP 114/74
--- NOTE | 2017-08-22 07:22 | NUR ---
MS RN NOTES SLEPT MORE THAN EIGHT HOURS AT NIGHT.WILL CONTINUE TO MONITOR BEHAVIOR.ENDORSE TO DAY NURSE FOR RANDOLPH.
[2017-08-22 08:00] VITALS: BP 102/61
--- NOTE | 2017-08-22 08:20 | NUR ---
RN NOTES RECEIVED PT. PT IS STABLE AND RESTING IN BEDSIDE CHAIR. A/OX3. PT IS ON RA, NO S/S OF DISTRESS OR SOB. PT HAD 8 HOURS OF SLEEP THE PREVIOUS NIGHT. SAFETY MEASURES IN PLACE, CALL LIGHT WITHIN REACH. WILL CONTINUE TO MONITOR.
[2017-08-22] MEDS: INVEST MED MK-8189 MISC 3 CAP EA PO SCH (09:06)
[2017-08-22] MEDS: LORAZEPAM 1 MG TABLET FOR AGITATION PO PRN (09:06)
[2017-08-22] MEDS: INVEST MED MK-8189 MISC 3 TAB EA PO SCH (09:06)
[2017-08-22 16:00] VITALS: BP 108/69
--- NOTE | 2017-08-22 18:50 | NUR ---
RN CLOSING NOTES PT ALERT AND RESTING IN BEDSIDE CHAIR. NO S/S OF DISTRESS OR SOB. NO C/O PAIN AT THIS TIME. SAFETY MEASURES IN PLACE, CALL LIGHT WITHIN REACH. WILL ENDORSE TO QA MANAGER FOR RANDOLPH.
[2017-08-22 20:00] VITALS: BP 111/67
--- NOTE | 2017-08-22 20:00 | NUR ---
RN NOTES RECEIVED PT. AWAKE ON BED, A/OX4, AMBULATORY CALM AND COOPERATIVE, DENIES PAIN, NO SOB, CALL LIGHT WITHIN REACH, SIDERAILS UPX2 CONTINUE TO MONITOR
--- NOTE | 2017-08-22 21:15 | NUR ---
RN NOTES PT. ASKED FOR ATIVAN - ATIVAN 1MG PO GIVEN ORDERED, V/S STABLE
[2017-08-22] MEDS: LORAZEPAM 1 MG TABLET FOR INSOMNIA PO PRN (21:21)
[2017-08-22] MEDS: ZOLPIDEM TARTRATE 10 MG TABLET PO PRN (22:11)
--- NOTE | 2017-08-22 22:17 | NUR ---
RN NOTES PT. ASKED FOR SLEEPING PILL- AMBIEN 10 MG PO GIVEN ORDERED, V/S STABLE
--- NOTE | 2017-08-23 06:24 | NUR ---
RN NOTES SLEEPING BUT AROUSABLE, CALM AND COOPERATIVE, CALL LIGHT WITHIN REACH, SIDERAILS UPX2 PT. NEEDS ATTENDED. ENDORSED TO DAYSHIFT NURSE FOR CONTINUITY OF CARE
--- NOTE | 2017-08-23 07:30 | NUR ---
MS/RN Patient received Patient received from shift supervisor film processing. No needs at this time, call light within reach, will continue to monitor and ensure safety.
[2017-08-23] MEDS: INVEST MED MK-8189 MISC 3 TAB EA PO SCH (07:56)
[2017-08-23] MEDS: INVEST MED MK-8189 MISC 3 CAP EA PO SCH (07:56)
[2017-08-23 08:00] VITALS: BP 110/70
--- NOTE | 2017-08-23 09:15 | NUR ---
MS/RN Medications Investigational medications administered as ordered.
--- NOTE | 2017-08-23 12:32 | NUR ---
MS/RN Behavior Patient noted to be increasingly sat rocking back and fourth on chair. Continues to experience visual and auditory hallucinations, but but SI. Will continue to monitor.
[2017-08-23 16:00] VITALS: BP 95/61
--- NOTE | 2017-08-23 18:30 | NUR ---
MS/RN End note Has remained calm and cooperative throughout shift, no behavior outbursts. Continues to be withdrawn and isolating self in room. All needs attended, will endorse to shift coordinator.
--- NOTE | 2017-08-23 19:30 | NUR ---
RN NOTES RECEIVED PATIENT AMBULATING. AO X 3, ABLE TO MAKE NEEDS KNOWN. NO ACUTE DISTRESS NOTED. DENIES ANY PAIN AT THIS TIME. SAFETY REMINDERS GIVEN. CALL LIGHT WITHIN EASY REACH. WILL CONTINUE TO MONITOR.
[2017-08-23 20:00] VITALS: BP 97/56
--- NOTE | 2017-08-24 06:15 | NUR ---
RN NOTES PATIENT ASLEEP, EASILY AROUSABLE. RESPIRATIONS EVEN. NO SIGNS OF PAIN NOTED. DUE MEDS GIVEN WITH NO ASE NOTED. NEEDS ATTENDED. SAFETY PRECAUTIONS AND COMFORT MEASURES IN PLACE. WILL GIVE REPORT TO DAY SHIFT FOR CONTINUITY OF CARE. Addendum: 08/24/17 at 0617 by DREA DAMICO RN CORRECTION: NO MEDS WERE GIVEN TO PATIENT. NPO SINCE 209909/01/17.
[2017-08-24 08:00] VITALS: BP 100/58
[2017-08-24] MEDS: INVEST MED MK-8189 MISC 3 TAB EA PO SCH (09:08)
[2017-08-24] MEDS: INVEST MED MK-8189 MISC 3 CAP EA PO SCH (09:08)
--- NOTE | 2017-08-24 09:27 | NUR ---
RN MS NOTES PT IN BED, ASLEEP, EASY TO AROUSE, ALERT AND ORIENTED. NO COMPLAINT OF PAIN, BREATHING PATTERN NORMAL AND NOT LABORED, CALL LIGHT WITHIN REACH, PT FOR BLOOD DRAW TODAY, NPO. PT AWARE.
[2017-08-24] MEDS ORDERED: LORAZEPAM 1 MG TABLET FOR INSOMNIA PO PRN (12:00)
[2017-08-24 16:00] VITALS: BP 97/61
--- NOTE | 2017-08-24 18:30 | NUR ---
RN MS NOTES PT IN BED, AWAKE, ALERT AND ORIENTED, NO COMPLAINT OF PAIN OR DISTRESS, ASSISTED TO SMOKING AREA BY SHIPYARD PAINTER, TOLERATING CURRENT DIET, SEEN BY DR. VIRGEN, NEEDS ATTENDED.
--- NOTE | 2017-08-24 19:30 | NUR ---
MS RN OPENING NOTES: PATIENT SITTING ON [place], WATCHING TV AT THIS TIME. AOX4, APPEARS CALM AND IN NO DISTRESS. DENIES ANY PAIN, HEADACHE. DENIES HAVING ANY VISUAL OR AUDITORY HALLUCINATIONS. PROVIDED FOR COMFORT AND SAFETY. WILL CONT TO MONITOR.
[2017-08-24 20:00] VITALS: BP 102/66
[2017-08-24] MEDS: ZOLPIDEM TARTRATE 10 MG TABLET PO PRN (23:06)
--- NOTE | 2017-08-25 07:00 | NUR ---
MS RN CLOSING NOTES: PATIENT IN BED, ASLEEP AT THIS TIME. ON ROOM AIR, BREATHING EVEN AND UNLABORED. APPEARS CALM AND IN NO DISTRESS. DENIES PAIN. DID NOT VERBALIZE ANY VISUAL OR AUDITORY HALLUCINATION THROUGH SHIFT. WAS ABLE TO HAVE 7 HRS SLEEP. PROVIDED FOR COMFORT AND SAFETY. WILL ENDORSE TO AM RN FOR RANDOLPH.
[2017-08-25 08:00] VITALS: BP 112/67
[2017-08-25] MEDS: INVEST MED MK-8189 MISC 3 CAP EA PO SCH (09:03)
[2017-08-25] MEDS: INVEST MED MK-8189 MISC 3 TAB EA PO SCH (09:03)
--- NOTE | 2017-08-25 09:30 | NUR ---
MS RN NOTES ADMINISTERED INVESTIGATIONAL MEDS ORDERED.
[2017-08-25 16:00] VITALS: BP 96/65
[2017-08-25 18:00] VITALS: BP 96/65
[2017-08-25 20:00] VITALS: BP 102/57
--- NOTE | 2017-08-25 20:00 | NUR ---
RN NOTES PATIENT IN THE HALLWAY, PACING BACK AND FORTH, CALM, APPROPRIATE AFFECT, NO BEHAVIOR DISTURBANCE, ANSWERS QUESTIONS APPROPRIATELY, KEPT SAFE, WILL CONTINUE TO MONITOR.
--- NOTE | 2017-08-26 06:24 | NUR ---
RN NOTES PATIENT RESTING COMFORTABLY IN BED, EASILY AROUSEABLE, NO SOB, NO DISTRESS, KEPT TO SELF, SLEPT FOR 8 HOURS, NO BEHAVIORAL DISTURBANCE DURING SHIFT, KEPT SAFE AND COMFORTABLE, CALL LIGHT WITHIN REACH.
[2017-08-26 08:00] VITALS: BP 102/62
[2017-08-26] MEDS: INVEST MED MK-8189 MISC 3 TAB EA PO SCH (08:31)
[2017-08-26] MEDS: INVEST MED MK-8189 MISC 3 CAP EA PO SCH (08:31)
--- NOTE | 2017-08-26 09:30 | NUR ---
MS RN NOTES ADMINISTERED INVESTIGATIONAL MEDS ORDERED.
[2017-08-26] MEDS: LORAZEPAM 1 MG TABLET FOR AGITATION PO PRN (13:00)
[2017-08-26 16:00] VITALS: BP 118/74
[2017-08-26 18:00] VITALS: BP 118/74
--- NOTE | 2017-08-26 19:20 | NUR ---
MS RN OPENING NOTES: ENDORSED FROM AM NURSE THAT PT IS A CLINICAL STUDY. RECEIVED PT AND IS SITTING UP IN CHAIR ON PHONE. PT IS A/OX4. PT IS ON ROOM AIR AND IS TOLERATING WELL. NO SOB OR S/S OF DISTRESS NOTED AT THIS TIME. PT HAS NO IV ACCESS NOTED. CALL LIGHT WITHIN PT'S REACH. BED KEPT IN LOW, LOCKED POSITION, AND SIDE RAILS X 2 UP. WILL CONTINUE TO MONITOR PT.
[2017-08-26 20:00] VITALS: BP 106/70
[2017-08-26 20:22] VITALS: BP 106/70
--- NOTE | 2017-08-26 21:00 | NUR ---
MS RN NOTES: PT WENT DOWN FOR A SMOKE BREAK.
--- NOTE | 2017-08-26 21:15 | NUR ---
MS RN NOTES: PT BACK FROM SMOKE BREAK. NO S/S OF DISTRESS NOTED. NO SOB.
--- NOTE | 2017-08-26 22:15 | NUR ---
MS RN NOTES: PT IN ROOM SLEEPING AND DOES NOT NEED ANYTHING AT THIS TIME. WILL CONTINUE TO MONITOR PT.
--- NOTE | 2017-08-27 06:41 | NUR ---
MS RN CLOSING NOTES: ALL NEEDS WERE ATTENDED AND ANTICIPATED FOR. PT IS A CLINICAL STUDY. PT CURRENTLY SLEEPING IN BED. PT IS A/OX4. PT HAS BEEN ON ROOM AIR AND HAS BEEN TOLERATING WELL. NO SOB OR S/S OF DISTRESS NOTED AT THIS TIME. PT HAS NO IV ACCESS. PT GOT 8 HOURS OF SLEEP. CALL LIGHT WITHIN PT'S REACH. BED KEPT IN LOW, LOCKED POSITION, AND SIDE RAILS X 2 UP. WILL ENDORSE TO AM NURSE FOR RANDOLPH.
[2017-08-27 08:00] VITALS: BP 105/69
--- NOTE | 2017-08-27 08:33 | NUR ---
RN NOTES RECEIVED PT. PT IS STABLE AND RESTING IN BEDSIDE CHAIR. A/OX4. NO S/S OF DISTRESS OR PAIN. PT REPORTS NO S/S OF BEHAVIORAL ISSUES. SAFETY MEASURES IN PLACE, CALL LIGHT WITHIN REACH. WILL CONTINUE TO MONITOR.
[2017-08-27] MEDS: INVEST MED MK-8189 MISC 3 CAP EA PO SCH (08:52)
[2017-08-27] MEDS: INVEST MED MK-8189 MISC 3 TAB EA PO SCH (08:52)
[2017-08-27] MEDS: LORAZEPAM 1 MG TABLET FOR AGITATION PO PRN ×2 (09:59→19:42)
[2017-08-27 16:00] VITALS: BP 99/71
--- NOTE | 2017-08-27 19:04 | NUR ---
RN NOTES PT IN ROOM SITTING AT BEDSIDE CHAIR. NO S/S OF DISTRESS OR PAIN. NO S/S OF BEHAVIORAL ISSUES. PT CLOTHING TAKEN FOR [employer]UN[employer] SERVICES AT [employer]. SAFETY MEASURES IN PLACE, CALL LIGHT WITHIN REACH. WILL ENDORSE TO CAR RETARDER OPERATOR FOR RANDOLPH.
--- NOTE | 2017-08-27 19:44 | NUR ---
MS2/RN C/O ANXIETY, ATIVAN 1 MG PO WAS GIVEN ORDERED. WILL MONITOR.
[2017-08-27 20:00] VITALS: BP 98/67
--- NOTE | 2017-08-27 21:00 | NUR ---
MS2/RN CALM AND COMFORTABLE AT THIS TIME. NO DISTRESS NOTED. WILL CONTINUE TO MONITOR.
[2017-08-27] MEDS: ZOLPIDEM TARTRATE 10 MG TABLET PO PRN (21:18)
--- NOTE | 2017-08-27 22:00 | NUR ---
MS/RN PATIENT IS SLEEPING AT THIS TIME, AROUSABLE, NO DISTRESS NOTED, CALL LIGHT IN REACH. WILL CONTINUE TO MONITOR.
--- NOTE | 2017-08-28 06:20 | NUR ---
MS2/RN STILL SLEEPING AT THIS TIME, COMFORTABLE, AROUSABLE. ALL NEEDS ATTENDED AT THIS TIME. WILL CONTINUE TO MONITOR.
--- NOTE | 2017-08-28 07:20 | NUR ---
MS RN NOTES RECEIVED PATIENT IN BED, AWAKE. A/OX 4. ON ROOM AIR, TOLERATING WELL. BREATHING EVEN AND NON LABORED. ON CLINICAL TRIAL, NO BEHAVIOR AGITATION. APPEARS CALM AND RELAX IN BED. WILL CONT TO MONITOR.
[2017-08-28 08:00] VITALS: BP 103/64
[2017-08-28] MEDS: INVEST MED MK-8189 MISC 3 CAP EA PO SCH (09:26)
[2017-08-28] MEDS: INVEST MED MK-8189 MISC 3 TAB EA PO SCH (09:27)
[2017-08-28] MEDS: LORAZEPAM 1 MG TABLET FOR AGITATION PO PRN ×2 (11:24→19:16)
--- NOTE | 2017-08-28 11:30 | NUR ---
PATIENT APPEARS ANXIOUS, BREATHING EVEN AND NON LABORED, NO SOB. GIVEN ATIVAN 1MG PO PRN FOR ANXIETY. WILL REASSESS.
--- NOTE | 2017-08-28 12:30 | NUR ---
PATIENT IN HER ROOM, SITTING UP IN CHAIR. APPEARS CALM AND RELAX, ATIVAN PO PRN EFFECTIVE.
[2017-08-28 16:00] VITALS: BP 108/70
--- NOTE | 2017-08-28 18:40 | NUR ---
MS RN CLOSING NOTES PATIENT IN HER ROOM, APPEARS CALM AND RELAX. NO EPISODE OF AGITATION. PATIENT IS AMBULATORY, STEADY GAIT AND BALANCE. NO C/O PAIN OR ANY DISCOMFORT, PATIENT IS ON CLINICAL TRIAL STUDY. WILL ENDORSE TO BUILDING MAINTENANCE WORKER RN FOR CONTINUITY OF CARE.
--- NOTE | 2017-08-28 19:17 | NUR ---
PATIENT APPEARS ANXIOUS, BREATHING EVEN AND NON LABORED, NO SOB. GIVEN ATIVAN 1MG PO PRN FOR ANXIETY. WILL ENDORSE TO CLINICAL LABORATORY MEDICAL DIRECTOR RN FOR CONTINUITY OF CARE.
--- NOTE | 2017-08-28 19:30 | NUR ---
MS2/RN RECEIVE PATIENT AWAKE, ALERT, ORIENTED, CALM AND COMFORTABLE, NO C/O PAIN, NO DISTRESS NOTED, CALL LIGHT IN REACH. WILL MONITOR.
[2017-08-28 20:49] VITALS: BP 99/61
[2017-08-28] MEDS: ZOLPIDEM TARTRATE 10 MG TABLET PO PRN (21:26)
--- NOTE | 2017-08-28 22:47 | NUR ---
MS2/RN PATIENT IS SLEEPING AT THIS TIME, AROUSABLE, APPEAR COMFORTABLE, NO DISTRESS NOTED, CALL LIGHT IN REACH. WILL CONTINUE TO MONITOR.
--- NOTE | 2017-08-29 06:55 | NUR ---
MS2/RN PATIENT STILL SLEEPING AT THIS TIME, AROUSABLE, APPEAR COMFORTABLE, NO DISTRESS NOTED, CALL LIGHT IN REACH. ALL NEEDS ATTENDED AT THIS TIME. WILL CONTINUE TO MONITOR.
[2017-08-29 08:00] VITALS: BP 115/73
--- NOTE | 2017-08-29 08:15 | NUR ---
MS RN RECEIVED ON BED,AWAKE,ALERT,ORIENTED X4,NOT IN ANY FORM OF DISTRESS, RESPIRATIONS EVEN AND UNLABORED,NO SOB NOTED, LUNGS ARE CLEAR,ABDOMEN SOFT,POSITIVE BOWEL SOUNDS, DENIES PAIN AT THIS TIME. WILL MONITOR PATIENT.
--- NOTE | 2017-08-29 08:20 | NUR ---
MS RN RECEIVED ON BED, AWAKE,ALERT,ORIENTED X4,NOT IN ANY FORM OF DISTRESS, RESPIRATIONS EVEN AND UNLABORED,NO SOB NOTED, LUNGS ARE CLEAR,ABDOMEN SOFT, POSITIVE BOWEL SOUNDS, DENIES PAIN AT THIS TIME, S/P WOUND I AND D AT RIGH POSTERIOR THIGH, COVERED W/ DRESSING, DRY AND INTACT,NO S/S OF BLEEDING , NO DRAINAGE NOTED, REDDISH AT SURROUNDING AREA. WILL MONITOR PATIENT'S CONDITION. Addendum: 08/29/17 at 1609 by KELSEA PANG RN disregard notes,wrong patient documentation.
[2017-08-29] MEDS: LORAZEPAM 1 MG TABLET FOR AGITATION PO PRN ×2 (08:58→19:36)
[2017-08-29] MEDS: INVEST MED MK-8189 MISC 3 TAB EA PO SCH (08:59)
[2017-08-29] MEDS: INVEST MED MK-8189 MISC 3 CAP EA PO SCH (08:59)
--- NOTE | 2017-08-29 09:00 | NUR ---
MS PIPER BREAKFAST SERVED, DUE MEDS GIVEN,TOLERATED WELL.
--- NOTE | 2017-08-29 10:00 | NUR ---
MS RN WENT DOWN TO SMOKE.
[2017-08-29 16:00] VITALS: BP 103/61
--- NOTE | 2017-08-29 18:38 | NUR ---
MS RN WENT DOWN TO SMOKE, NO DISTRESS NOTED, WILL ENDORSE TO SENIOR LOSS CONTROL SPECIALIST FOR CONTINUITY OF CARE.
--- NOTE | 2017-08-29 19:38 | NUR ---
MS2/RN RECEIVE PATIENT AWAKE, ALERT, ORIENTED, C/O BEING ANXIOUS, ATIVAN 1 MG PO WAS GIVEN ORDERED. WILL MONITOR.
[2017-08-29 20:00] VITALS: BP 100/63
[2017-08-29] MEDS: ZOLPIDEM TARTRATE 10 MG TABLET PO PRN (21:46)
[2017-08-30 08:00] VITALS: BP 104/65
[2017-08-30] MEDS: INVEST MED MK-8189 MISC 3 TAB EA PO SCH (09:05)
[2017-08-30] MEDS: INVEST MED MK-8189 MISC 3 CAP EA PO SCH (09:05)
[2017-08-30] MEDS: LORAZEPAM 1 MG TABLET FOR AGITATION PO PRN ×2 (09:07→18:50)
--- NOTE | 2017-08-30 10:03 | NUR ---
RN NOTES RECEIVED PT. PT IS RESTING AND SITTING IN BEDSIDE CHAIR. A/OX4. NO S/S OF DISTRESS OR SOB. NO C/O PAIN. NO S/S OF BEHAVIORAL ISSUES. PER MD ORDERS, PT IS TO NOT RECEIVE AND ATIVAN AFTER 2100 TONIGHT, 08/30/17. WILL ENDORSE TO GLUING MACHINE OPERATOR AUTOMATIC. SAFETY MEASURES IN PLACE, CALL LIGHT WITHIN REACH. WILL CONTINUE TO MONITOR.
[2017-08-30 10:08] VITALS: BP 104/65
[2017-08-30 16:00] VITALS: BP 117/72
--- NOTE | 2017-08-30 18:33 | NUR ---
RN NOTES PT IS STABLE AND SITTING IN BEDSIDE CHAIR. NO S/S OF DISTRESS, PAIN OR SOB. NO S/S OF BEHAVIORAL ISSUED. PER ORDERS FROM DR. PROMISE PALENCIA TO BE HELD PAST 2100. ALL NEEDS ANTICIPATED AND MET. SAFETY MEASURES IN PLACE, CALL LIGHT WITHIN REACH, WILL ENDORSE TO GOLF COURSE DESIGNER FOR RANDOLPH.
[2017-08-30 20:00] VITALS: BP 110/69
[2017-08-30] MEDS: ZOLPIDEM TARTRATE 10 MG TABLET PO PRN (21:32)
[2017-08-31] MEDS: INVEST MED MK-8189 MISC 3 TAB EA PO SCH (09:35)
[2017-08-31] MEDS: INVEST MED MK-8189 MISC 3 CAP EA PO SCH (09:35)
[2017-08-31 09:47] VITALS: BP 111/68
[2017-08-31] MEDS: LORAZEPAM 1 MG TABLET FOR AGITATION PO PRN (12:09)
[2017-08-31 16:00] VITALS: BP 115/74
--- NOTE | 2017-08-31 18:53 | NUR ---
RN NOTES PATIENT SEEN BY DR. VIRGEN, IN NO DISTRESS, NO BEHAVIORAL DISTURBANCE NOTED, DENIES PAIN AT THIS TIME. NEEDS ATTENDED AND MET, SAFETY MEASURES IN PLACED. CALL LIGHT WITHINR EACH, WILL ENDORSE TO MANAGER CLINICAL PHARMACY FOR RANDOLPH.
[2017-08-31] MEDS: LORAZEPAM 1 MG TABLET FOR INSOMNIA PO PRN (19:14)
--- NOTE | 2017-08-31 19:30 | NUR ---
MS RN NOTE RECWEIVED PATIENT AWAKE AND ALERT IN CHAIR. NO DISTRESS NOTED. CONTINUING WITH CLINICAL TRIAL ORDERED. WILL CONTINUE TO MONITOR.
[2017-08-31 20:00] VITALS: BP 101/68
[2017-08-31] MEDS: ZOLPIDEM TARTRATE 10 MG TABLET PO PRN (21:14)
--- NOTE | 2017-09-01 06:35 | NUR ---
MS RN NOTE PATIENT STABLE. ALL NEEDS MET AND ATTENDED TO. WILL ENDORSE TO DAY SHIFT FOR RANDOLPH.
--- NOTE | 2017-09-01 07:30 | NUR ---
MS/RN Patient received Patient received from hourly shift. No needs expressed at this time, call light within reach, will continue to monitor.
[2017-09-01] MEDS: INVEST MED MK-8189 MISC 3 CAP EA PO SCH (07:49)
[2017-09-01] MEDS: INVEST MED MK-8189 MISC 3 TAB EA PO SCH (07:49)
[2017-09-01] MEDS: LORAZEPAM 1 MG TABLET FOR AGITATION PO PRN ×2 (07:51→13:56)
[2017-09-01 08:10] VITALS: BP 123/81
--- NOTE | 2017-09-01 08:16 | NUR ---
MS/RN Medications Investigational medications administered as ordered, along with 1mg ativan per patient request.
--- NOTE | 2017-09-01 14:00 | NUR ---
MS/RN Ativan 1mg ativan given per patient request.
[2017-09-01 16:19] VITALS: BP 120/70
--- NOTE | 2017-09-01 18:17 | NUR ---
MS/RN End note No behavior concerns at this time, has remained calm and cooperative with plan of care. Will endorse to cna per diem.
--- NOTE | 2017-09-01 19:30 | NUR ---
RN NOTE; RECEIVED PT SITTING ON THE CHAIR . BREATHING EVENLY. NO SOB. NAD. NO BEHAVIORAL OR PSYCH PROBLEMS. REPORTED NO A/R TO THE MEDICATIONS AND REQUESTED ATIVAN AT 1999. TO BE GIVEN NEEDS ATTENDED. CALL LIGHT WITHIN REACH. WILL CONT TO MONITOR
[2017-09-01] MEDS: LORAZEPAM 1 MG TABLET FOR INSOMNIA PO PRN (19:58)
[2017-09-01 20:00] VITALS: BP 107/71
--- NOTE | 2017-09-01 20:00 | NUR ---
ATIVAN 1MG GIVEN ORDERED PER PT'S REQUEST FOR ANXIETY . WILL CONT TO MONITOR
[2017-09-01] MEDS: ZOLPIDEM TARTRATE 10 MG TABLET PO PRN (21:17)
--- NOTE | 2017-09-01 21:18 | NUR ---
JAIROIEN GIVEN ORDERED FOR C/O INSOMNIA. FALL RISK PRECAUTIONS WERE EXPLAINED TO THE PT. WILL CONT TO MONITOR
--- NOTE | 2017-09-02 06:45 | NUR ---
PT IS SLEEPING COMFORTABLY. W/ NO ACUTE EVENT DURING THE NIGHT. NO BEHAVIORAL ISSUES NOTED. NEEDS ATTENDED. CALL LIGHT WITHIN REACH . WILL CONT TO MONITOR AND WILL ENDORSE TO AM SHIFT FOR RANDOLPH.
--- NOTE | 2017-09-02 07:20 | NUR ---
ms rn initial notes Received patient in bed, awake, head of bed elevated, no SOB or distress noted. On room air with saturation of 98%. Patient is under clinical trial no unusual behavior noted, calm and cooperative, no IV HL. Kept patient clean and comfortable in bed, call light with in patient reach, will continue to monitor accordingly.
[2017-09-02 08:00] VITALS: BP 106/71
[2017-09-02] MEDS: INVEST MED MK-8189 MISC 3 TAB EA PO SCH (08:06)
[2017-09-02] MEDS: INVEST MED MK-8189 MISC 3 CAP EA PO SCH (08:06)
[2017-09-02] MEDS: LORAZEPAM 1 MG TABLET FOR AGITATION PO PRN ×3 (08:07→20:05)
[2017-09-02 16:00] VITALS: BP 106/62
--- NOTE | 2017-09-02 18:52 | NUR ---
ms rn closing notes All needs provided, attended, and anticipated. Kept patient clean and comfortable in bed, call light with in patient reach, Endorsed to next shift RN to continue care.
--- NOTE | 2017-09-02 19:44 | NUR ---
RN INITIAL NOTES: RECEIVED REPORT FORM JOI PIPER, PT AMBULATING IN THE HALLWAY, DENIES ANY PAIN OR DISCOMFORT, RESPIRATION EVEN AND UNLABORED, NO IV PER MD, DENIES ANY PLAN OF HURTING HERSELF, WILL CONTINUE TO MONITOR
[2017-09-02 20:00] VITALS: BP 108/69
--- NOTE | 2017-09-02 20:05 | NUR ---
PRN ATIVAN: PT REQUESTED TO TAKE ATIVAN FOR ANXIETY, PRN ATIVAN 1MG TAB ADMINISTERED AT THIS TIME, WILL CONTINUE TO MONITOR
[2017-09-02 20:37] VITALS: BP 108/69
[2017-09-02] MEDS: ZOLPIDEM TARTRATE 10 MG TABLET PO PRN (21:27)
--- NOTE | 2017-09-02 21:27 | NUR ---
PRN AMBIEN: PT REQUESTED AMBIEN FOR INSOMNIA, PRN AMBIEN 10MG TAB ADMINISTERED AT THIS TIME, EDUCATE PT REGARDING FALL RISK, WILL CONTINUE TO MONITOR
--- NOTE | 2017-09-03 06:58 | NUR ---
RN CLOSING NOTES: PT SLEEPING, APPEARS COMFORTABLE, TOTAL HOURS OF SLEEP 8, BEHAVIOR REMAINS UNCHANGED. DENIES ANY PLAN OF HURTING HERSELF. VS REMAINS STABLE, NEEDS ANTICIPATED, CALL LIGHT IN REACH, SAFETY PRECAUTIONS FOR FALL REMAINS ENGAGED, CALL LIGHT IN REACH, WILL ENDORSE TO DAY RN FOR RANDOLPH
--- NOTE | 2017-09-03 07:30 | NUR ---
MS/RN Patient received Patient received from night coordinator. No needs at this time, call light within reach, will continue to monitor to ensure safety.
[2017-09-03] MEDS: INVEST MED MK-8189 MISC 3 CAP EA PO SCH (07:51)
[2017-09-03] MEDS: INVEST MED MK-8189 MISC 3 TAB EA PO SCH (07:51)
[2017-09-03] MEDS: LORAZEPAM 1 MG TABLET FOR AGITATION PO PRN ×3 (07:51→20:11)
[2017-09-03 08:00] VITALS: BP 108/66
--- NOTE | 2017-09-03 09:00 | NUR ---
MS/RN Medications Investigational medications administered as ordered.
--- NOTE | 2017-09-03 14:00 | NUR ---
MS/RN Ativan Ativan 1mg given per patient request.
--- NOTE | 2017-09-03 15:00 | NUR ---
MS/RN S/B Dr Andersen Seen by Dr Andersen - to continue with current trial orders. Next blood draw due on Sunday.
[2017-09-03 16:00] VITALS: BP 108/72
--- NOTE | 2017-09-03 18:42 | NUR ---
MS/RN End note No changes in condition, or behavior concerns throughout shift. Will continue to monitor and endorse to night club manager.
--- NOTE | 2017-09-03 19:40 | NUR ---
MS RN NOTE: PATIENT SITTING UP IN CHAIR, NO ACUTE DISTRESS NOTED. BREATHING EVEN AND UNLABORED, NO SOB NOTED. PATIENT CALM AND COOPERATIVE AT THIS TIME. BED LOCKED AND IN LOWEST POSITION, CALL LIGHT IN REACH. WILL CONTINUE TO MONITOR.
[2017-09-03 19:58] VITALS: BP 102/65
--- NOTE | 2017-09-03 20:15 | NUR ---
MS RN NOTE: PATIENT REQUEST FOR HER ANXIETY MEDICATION, ATIVAN 1MG ORAL GIVEN PER MD ORDER, NOTED PATIENT ROCKING BACK IN FORTH IN CHAIR. DENIES ANY VOICES OR HALLUCINATIONS AT THIS TIME. WILL CONTINUE TO MONITOR.
[2017-09-03] MEDS: ZOLPIDEM TARTRATE 10 MG TABLET PO PRN (21:20)
--- NOTE | 2017-09-03 21:30 | NUR ---
MS RN NOTE: PATIENT REQUEST FOR SLEEPING MEDICATION, AMBIEN 10MG ORAL GIVEN PER MD ORDER. WILL CONTINUE TO MONITOR.
--- NOTE | 2017-09-04 06:20 | NUR ---
MS RN NOTED: PATIENT RESTING IN BED, NO ACUTE DISTRESS NOTED. BREATHING EVEN AND UNLABORED, NO SOB NOTED. PATIENT WAS CALM AND COOPERATIVE THROUGHOUT SHIFT. PATIENT SLEPT ABOUT 8 HOURS. BED LOCKED AND IN LOWEST POSITION, CALL LIGHT IN REACH, WILL ENDORSE TO DAY NURSE TO CONTINUE WITH PLAN OF CARE.
--- NOTE | 2017-09-04 07:30 | NUR ---
MS/RN Patient received Patient received from medication reconciliation technician. No needs at this time, call light within reach, will continue to monitor and ensure safety.
[2017-09-04 08:00] VITALS: BP 94/60
--- NOTE | 2017-09-04 08:00 | NUR ---
MS/RN Ativan Ativan 1mg administered per patient request.
[2017-09-04] MEDS: LORAZEPAM 1 MG TABLET FOR AGITATION PO PRN ×3 (08:03→20:06)
[2017-09-04] MEDS: INVEST MED MK-8189 MISC 3 CAP EA PO SCH (08:03)
[2017-09-04] MEDS: INVEST MED MK-8189 MISC 3 TAB EA PO SCH (08:03)
[2017-09-04 08:43] VITALS: BP 94/60
--- NOTE | 2017-09-04 09:15 | NUR ---
MS/RN Medications Morning trial medications administered as ordered.
--- NOTE | 2017-09-04 12:49 | NUR ---
MS/RN Behavior No behavior concerns this morning, will continue to monitor.
[2017-09-04 16:00] VITALS: BP 98/64
[2017-09-04 16:07] VITALS: BP 98/64
--- NOTE | 2017-09-04 18:18 | NUR ---
MS/RN End note No changs at this time, will continue to monitor and endorse to manufacturing shift supervisor.
[2017-09-04 20:00] VITALS: BP 97/63
--- NOTE | 2017-09-04 20:00 | NUR ---
RN NOTES PATIENT UP ON CHAIR, ROCKING SELF BACK AND FORTH, NO SOB, NO DISTRESS, CALM, COOPERATIVE, HEARING VOICES, NOT ACTING ON THEM, REQUESTED ATIVAN AT 20:00 AND AMBIEN AT 2100. WILL ACCOMODATE BOTH REQUESTS. NEEDS ATTENDED, CALL LIGHT WITHIN REACH.
[2017-09-04] MEDS: ZOLPIDEM TARTRATE 10 MG TABLET PO PRN (21:17)
--- NOTE | 2017-09-05 06:30 | NUR ---
RN NOTES PATIENT RESTING COMFORTABLY IN BED, NO SOB, RESPIRATION EVEN, NO DISTRESS, SLEPT FOR 8 HOURS, KEPT TO SELF, KEPT SAFE AND COMFORTABLE, CALL LIGHT WITHIN REACH.
--- NOTE | 2017-09-05 07:30 | NUR ---
MS/RN Patient received Patient received from manufacturing supervisor 2nd shift. No needs or concerns at this time, call light within reach, will continue to monitor and ensure safety.
[2017-09-05] MEDS: LORAZEPAM 1 MG TABLET FOR AGITATION PO PRN ×3 (07:56→20:06)
[2017-09-05] MEDS: INVEST MED MK-8189 MISC 3 TAB EA PO SCH (07:56)
[2017-09-05] MEDS: INVEST MED MK-8189 MISC 3 CAP EA PO SCH (07:57)
[2017-09-05 08:00] VITALS: BP 96/67
--- NOTE | 2017-09-05 08:00 | NUR ---
MS/RN Ativan Ativan 1mg given as requested by patient, will monitor effectiveness.
--- NOTE | 2017-09-05 09:00 | NUR ---
MS/RN Medications Morning trial medications administered as ordered.
--- NOTE | 2017-09-05 14:00 | NUR ---
MS/RN Ativan 1mg ativan administered per patient request.
[2017-09-05 16:00] VITALS: BP 106/65
--- NOTE | 2017-09-05 18:02 | NUR ---
MS/RN End note No behavior concerns today, has remained calm and cooperative with plan of care. All medications administered as ordered. Will continue to monitor and endore to night warehouse manager.
--- NOTE | 2017-09-05 19:30 | NUR ---
MS RN NOTES PATIENT RECEIVED SITTING UP IN A CHAIR. A & O X 4. NO C/O PAIN. NO SOB, NO BEHAVIORAL EPISODE R/T SCHIZOPHRENIA NOTED AT THIS TIME. UNDER CLINICAL TRIAL AT THIS TIME. AMBULATORY, CONTINENT. NO IV ACCESS AT THIS TIME. MD AWARE. BED IN LOW LOCKED POSITION. CALL LIGHT WITHIN REACH. ABLE TO VERBALIZE NEEDS. WILL CONTINUE TO MONITOR CLOSELY.
[2017-09-05 20:00] VITALS: BP 102/61
--- NOTE | 2017-09-05 20:06 | NUR ---
PRN ATIVAN GIVEN PATIENT REQUESTED FOR ATIVAN FOR ANXIETY, PRN ATIVAN GIVEN. WILL REASSESS PER PROTOCOL.
[2017-09-05] MEDS: ZOLPIDEM TARTRATE 10 MG TABLET PO PRN (21:23)
--- NOTE | 2017-09-05 21:23 | NUR ---
PRN AMBIEN GIVEN PATIENT REQUESTED FOR AMBIEN TO AID IN SLEEPING. PRN AMBIEN GIVEN ORDERED BY MD. WILL REASSESS PER FACILITY PROTOCOL. MONITORING CLOSELY.
--- NOTE | 2017-09-06 03:54 | NUR ---
MS RN NOTES PATIENT SLEPT COMFORTABLY, WOKE UP ONCE, ASKED FOR SNACK & WENT BACK TO SLEEP.
--- NOTE | 2017-09-06 06:46 | NUR ---
MS RN CLOSING NOTES PATIENT SLEPT WELL AT NIGHT WITHOUT ANY C/O PAIN, NO SOB, NO AGITATION NOTED.ALL NEEDS ATTENDED TO & MET. PATIENT HAD ABOUT 7-8 HRS OF SLEEP AT NIGHT.AMBULATORY, USES BRP. ON CLINICAL TRIAL CURRENTLY. NO LABS TODAY. NO IV ACCESS. ABLE TO TAKE GOOD PO FLUID INTAKE & TOLERATES WELL. BED IN LOW LOCKED POSITION. CALL LIGHT WITHIN REACH. WILL ENDORSE TO AM SHIFT.
--- NOTE | 2017-09-06 07:20 | NUR ---
RN OPEN NOTES RECEIVED REPORT FROM SHIPWRIGHT NURSE. WILL CONTINUE TO ASSESS AND MONITOR PATIENT THROUGH OUT MY SHIFT
[2017-09-06 08:00] VITALS: BP 98/70
[2017-09-06] MEDS: INVEST MED MK-8189 MISC 3 CAP EA PO SCH (08:18)
[2017-09-06] MEDS: INVEST MED MK-8189 MISC 3 TAB EA PO SCH (08:18)
[2017-09-06] MEDS: LORAZEPAM 1 MG TABLET FOR AGITATION PO PRN (08:18)
[2017-09-06 16:00] VITALS: BP 108/77
--- NOTE | 2017-09-06 19:41 | NUR ---
RN CLOSING NOTES REPORT GAVE TO VANSTONE MACHINE OPERATOR NURSE. PATIENT IS ALERT AND ORIENTED TO NAME, PLACE AND TIME. ALL NEEDS ATTENDED TO AND MET. AMBULATORY, USES BRP. ON CLINICAL TRIAL CURRENTLY. NO LABS TODAY. NO IV ACCESS. BED IN LOW LOCKED POSITION, LOCKED. CALL LIGHT WITHIN REACH.
--- NOTE | 2017-09-06 19:55 | NUR ---
MS RN OPENING NOTES PATIENT RECEIVED SITTING UP IN A CHAIR. A & O X 4. NO C/O PAIN. NO SOB, NO OTHER ACUTE DISTRESS OR DISCOMFORT NOTED. WILL BE NPO AFTER 2099. GRADUATING TOMORROW. NO BEHAVIORAL EPISODE R/T SCHIZOPHRENIA NOTED AT THIS TIME. UNDER CLINICAL TRIAL AT THIS TIME. AMBULATORY, CONTINENT. NO IV ACCESS AT THIS TIME. MD AWARE. BED IN LOW LOCKED POSITION. CALL LIGHT WITHIN REACH. ABLE TO VERBALIZE NEEDS. WILL CONTINUE TO MONITOR CLOSELY.
[2017-09-06 20:00] VITALS: BP 105/63
--- NOTE | 2017-09-07 03:34 | NUR ---
MS RN NOTES PATIENT SLEEPING COMFORTABLY AT THIS TIME. NO CONCERNS NOTED.
--- NOTE | 2017-09-07 06:52 | NUR ---
MS RN CLOSING NOTES PATIENT SLEPT ABOUT 8 HRS WITHOUT ANY COMPLICATIONS. A & O X 4. NPO SINCE 2100. NO IV ACCESS. AMBULATORY & STEADY. CONTINENT OF B & BM. ON A CLINICAL TRIAL. NO BEHAVIOR EPISODES NOTED AT NIGHT. BED IN LOW LOCKED POSITION. CALL LIGHT WITHIN REACH. WILL ENDORSE TO AM SHIFT FOR CONTINUITY OF CARE.
--- NOTE | 2017-09-07 07:23 | NUR ---
RN OPEN NOTES RECEIVED REPORT FROM YARD SWITCHER NURSE. PATIENT AWAKE, ON HER WAY TO TAKE A SHOWER. NO SIGNS AND SYMPTOMS OF DISTRESS. BED IN LOW POSITION, LOCKED AND TWO SIDE RAILS ARE UP. CALL LIGHT WITHIN REACH. WILL CONTINUE TO ASSESS AND MONITOR PATIENT THROUGHOUT MY SHIFT
[2017-09-07] MEDS: INVEST MED MK-8189 MISC 3 TAB EA PO SCH (08:12)
[2017-09-07] MEDS: INVEST MED MK-8189 MISC 3 CAP EA PO SCH (08:12)
--- NOTE | 2017-09-07 08:45 | NUR ---
SALES REPRESENTATIVE WIRE ROPE NOTES PATIENT DISCHARGE ORDER RECEIVED AND KRYSTIAN OUT. PATIENT DISCHARGE INFORMATION WAS GIVEN. NO NEW CONCERNS IDENTIFIED UPON DISCHARGE. PATIENT WAS TRANSPORTED TO DR VIRGEN CLINIC VIA A PRIVATE CAR AND DR VIRGEN LICENSING REGISTRATION EXAMINER. ALL PERSONAL BELONGING WITH PATIENT AT TIME OF DISCHARGE. PATIENT SIGNED DISCHARGE INSTRUCTION FORM AND BELONGING FORMS; FORMS PLACED IN THE CHART. SKIN IS INTACT UPON DISCHARGE. ID BAND REMOVED. NO IV SITE.
[2017-09-07] MEDS ORDERED: LORAZEPAM 1 MG TABLET FOR AGITATION PO PRN (12:00)
[2017-09-07] MEDS ORDERED: LORAZEPAM 1 MG TABLET FOR INSOMNIA PO PRN (12:00)
== END 2017-09-07 08:45 | disposition home or self-care (01) | DRG 951 ==
LOC: MEDSG2 13:52
PROVIDERS: ADMIT Psychiatry & Neurology Psychiatry; ATTEND Psychiatry & Neurology Psychiatry
DX: Z00.6 Encounter for examination for normal comparison and control in clinical research program (principal); F20.0 Paranoid schizophrenia; G47.00 Insomnia, unspecified; F17.200 Nicotine dependence, unspecified, uncomplicated; F41.9 Anxiety disorder, unspecified
CPT/HCPCS: 87081-TC

== ENCOUNTER 2019-11-07 10:07 | Inpatient (IN) | payer OTHER ==
[~2019-11-07] VITALS: Ht 165.1 cm; Wt 80.7 kg
[~2019-11-07 10:07] MED LIST: ARIP30TA3 PO; DIPH25CA51 PO
[2019-11-07 12:15] VITALS: BP 117/70
[2019-11-07] MEDS ORDERED: BENZTROPINE MESYLATE (1 MG) 1 MG TABLET PO PRN (14:00)
[2019-11-07] MEDS ORDERED: PROPRANOLOL HCL 10 MG TABLET PO PRN (14:00)
[2019-11-07] MEDS ORDERED: IBUPROFEN 200 MG TABLET PO PRN (14:00)
[2019-11-07] MEDS ORDERED: ACETAMINOPHEN ES 500 MG TABLET PO PRN (14:00)
[2019-11-07] MEDS ORDERED: ZOLPIDEM TARTRATE 10 MG TABLET PO PRN (14:00)
[2019-11-07] MEDS ORDERED: MAGNESIUM HYDROXIDE 30 ML UDC PO PRN (14:00)
[2019-11-07] MEDS ORDERED: MAG HYDROX/AL HYDROX/SIMETH 30 ML UDC PO PRN (14:00)
--- NOTE | 2019-11-07 15:21 | NUR ---
RN ADMITTING NOTES ADMITTED TO UNIT A 54 Y/O FEMALE DIRECT ADMIT FROM DR VIRGEN OFFICE, AMBULATORY ACCOMPANIED BY STAFF FROM DR VIRGEN OFFICE AT 1210. PT IS A/O X4. ABLE TO MAKE NEEDS KNOWN, DENIES PAIN OR ANY DISCOMFORTS AT THIS TIME. DENIES SI/HI, COMPLIANT AND WELL KEPT/DRESS. ORIENTED TO UNIT AND STAFF. ON ROOM AIR, BREATHING EVEN AND UNLABORED. SKIN IS INTACT. NO IV ACCESS PER MD. SMOKING POLICY/SCHEDULES EXPLAINED TO PT AND VERBALIZED UNDERSTANDING, CONSENT SIGNED AND FILED IN CHART. BED PLACED IN LOW LOCKED POSITION. CALL LIGHT PLACED WITHIN REACH OF PT. WILL CONTINUE TO MONITOR PT.
[2019-11-07 17:07] VITALS: BP 123/79
--- NOTE | 2019-11-07 18:51 | NUR ---
CLINICAL TRIAL RN CLOSING NOTES PATIENT RESTING IN BED @ THIS TIME. A/OX4. ABLE TO MAKE NEEDS KNOWN AND AMBULATORY WITH STEADY GAIT. ACCOMPANIED FOR SMOKING PRIVILEGES WITH PROGRAMMING COORDINATOR AT SCHEDULED TIME. ALL NEEDS AND CARE ATTENDED WELL. WILL MONITOR FOR ANY CHANGES. WILL ENDORSE TO FILAMENT MAKER NURSE FOR RANDOLPH.
--- NOTE | 2019-11-07 20:00 | NUR ---
MS RN NOTES RECEIVED PATIENT AWAKE AND CALM IN BED WITH NO DISTRESS NOTED. CALL LIGHT WITHIN REACH. NO C/O PAIN OR DISCOMFORT. ENCOURAGED USE OF CALL LIGHT FOR ASSISTANCE AND VERBALIZED GOOD UNDERSTANDING. ROOM FREE OF CLUTTER AND BELONGINGS KEPT NEAR BEDSIDE. BED IN LOW LOCK SETTING. WILL CONTINUE TO MONITOR
[2019-11-07 20:52] VITALS: BP 123/81
--- NOTE | 2019-11-08 06:30 | NUR ---
MS RN NOTES PATIENT ASLEEP IN BED WITH NO DISTRESS NOTED. CALL LIGHT WITHIN REACH. NO BEHAVIORAL ISSUES NOTED DURING SHIFT. BED IN LOW LOCK SETTING. ROOM FREE OF CLUTTER AND ALL BELONGINGS KEPT NEAR BEDSIDE. WILL ENDORSE TO ONCOMING SHIFT.
[2019-11-08 08:00] VITALS: BP 118/74
--- NOTE | 2019-11-08 15:27 | NUR ---
MS OPENING RN NOTES Received Patient asleep and resting in bed. A/O x 4. VS stable with no acute distress. Breathing even and unlabored on room air with no respiratory distress. Denies pain. Safety precautions in place. Bed locked and set to lowest position with side rails x 2 up. All needs rendered at this time. Call light within reach. Will continue to monitor.
[2019-11-08 16:00] VITALS: BP 126/74
--- NOTE | 2019-11-08 18:36 | NUR ---
MS AMIRA RN NOTES Patient awake and resting in bed. A/O x 4. VS stable with no acute distress. Breathing even and unlabored on room air with no respiratory distress. Denies pain. Safety precautions in place. Bed locked and set to lowest position with side rails x 2 up. All needs rendered at this time. Call light within reach. Will continue to monitor.
--- NOTE | 2019-11-08 19:00 | NUR ---
MS RN NOTE RECEIVED PT IN STABLE CONDITION A/O X4, CURRENTLY RESTING IN BED. NO SIGNS OF SOB OR DISTRESS, NO COMPLAINTS OF PAIN OR N/V. CALM COOPERATIVE, NO BEHAVIORAL ISSUES NOTED. ALL CURRENT NEEDS ATTENDED TO. BED LOW, LOCKED UPPER RAILS UP, AND CALL LIGHT WITHIN REACH. WILL CONT. TO MONITOR.
[2019-11-08 20:33] VITALS: BP 109/75
--- NOTE | 2019-11-09 06:07 | NUR ---
MS RN NOTE PT REMAINS IN STABLE CONDITION A/O X4, CURRENTLY RESTING IN BED. NO SIGNS OF SOB OR DISTRESS, NO COMPLAINTS OF PAIN OR N/V. NO BEHAVIORAL ISSUES THROUGHOUT SHIFT. ALL CURRENT NEEDS ATTENDED TO. BED LOW, LOCKED UPPER RAILS UP, AND CALL LIGHT WITHIN REACH. WILL CONT. TO MONITOR AND ENDORSE TO NEXT SHIFT FOR RANDOLPH.
--- NOTE | 2019-11-09 07:10 | NUR ---
MS RN OPENING NOTES RECEIVED PATIENT IN BED, ASLEEP, AROUSABLE TO VERBAL AND TACTILE STIMULI. NO SOB. DENIES ANY C/O PAIN NOR DISCOMFORT AT THIS TIME. BED IN LOWEST POSITION, LOCKED. CALL LIGHT WITHIN REACH. PATIENT ON CLINICAL TRIAL.
[2019-11-09 08:00] VITALS: BP 125/78
[2019-11-09 16:00] VITALS: BP 127/83
--- NOTE | 2019-11-09 18:35 | NUR ---
MS RN CLOSING CLINICAL TRIAL NOTES ALERT AND ORIENTED X4. NO S/S OF RESPIRATORY DISTRESS. DENIES ANY C/O PAIN NOR DISCOMFORT AT THIS TIME. COMPLIANT WITH CARE. AMBULATORY WITH STEADY GAIT. BED IN LOWEST POSITION, LOCKED. CALL LIGHT WITHIN REACH. IN NO APPARENT DISTRESS.
[2019-11-09 19:26] VITALS: BP 123/82
--- NOTE | 2019-11-09 19:30 | NUR ---
MS RN OPENING NOTE RECEIVED PATIENT IN BED. A/O X4. TOLERATING ROOM AIR. RR EVEN AND UNLABORED. NO S/S SOB NOTED. DENIES PAIN AT THIS TIME. NO IV ACCESS NOTED. IN NO APPARENT DISTRESS. BED IS LOW AND LOCKED, HOB FLAT, SIDE RAILS UP X2, CALL LIGHT WITHIN REACH. WILL CONTINUE TO MONITOR.
[2019-11-09 20:00] VITALS: BP 123/82
--- NOTE | 2019-11-10 06:37 | NUR ---
MS RN CLOSING NOTE PATIENT IN BED. A/O X4. REMAINS TOLERATING ROOM AIR. RR EVEN AND UNLABORED. NO SOB NOTED. DENIES PAIN. REMAINS WITH NO IV ACCESS. NO DISTRESS THROUGHOUT SHIFT. BED REMAINS LOW AND LOCKED, HOB FLAT, SIDE RAILS UP X2, CALL LIGHT WITHIN REACH. NO SIGNIFICANT MOOD/BEHAVIORAL CHANGES NOTED. WILL ENDORSE TO NEXT SHIFT.
[2019-11-10 08:00] VITALS: BP 116/74
[2019-11-10 16:00] VITALS: BP 130/72
--- NOTE | 2019-11-10 19:26 | NUR ---
RN MS NOTES PT IN HER ROOM, AWAKE, ALERT AND ORIENTED, NO COMPLAINT OF PAIN, NOT IN DISTRESS, COMPLIANT WITH CARE AND INTERVENTION, NO BEHAVIOR PROBLEM NOTED DURING THE SHIFT.
[2019-11-10 20:00] VITALS: BP 118/80
--- NOTE | 2019-11-11 07:58 | NUR ---
MS RN OPENING NOTE PATIENT IN BED RESTING COMFORTABLY. PATIENT IN NO ACUTE DISTRESS. NO SOB NOTED. PATIENT BREATHING IS EVEN AND UNLABORED. NO FACIAL GRIMACING NOTED. SAFETY PRECAUTIONS IN PLACE. PATIENT BED IS LOCKED AND IN LOWEST POSITION. CALL LIGHT WITHIN REACH. WILL CONTINUE TO MONITOR.
[2019-11-11 08:00] VITALS: BP 110/69
[2019-11-11 16:00] VITALS: BP 112/71
--- NOTE | 2019-11-11 18:28 | NUR ---
MS RN CLOSING NOTE PATIENT IN BED RESTING COMFORTABLY. PATIENT IN NO ACUTE DISTRESS. NO SOB NOTED. PATIENT BREATHING IS EVEN AND UNLABORED. NO FACIAL GRIMACING NOTED. NEEDS AND CONCERNS ADDRESSED. PATIENT KEPT CLEAN, DRY, AND COMFORTABLE THROUGHOUT SHIFT. SAFETY PRECAUTIONS IN PLACE. PATIENT BED IS LOCKED AND IN LOWEST POSITION. CALL LIGHT WITHIN REACH. WILL ENDORSE CARE TO PM SHIFT FOR RANDOLPH.
--- NOTE | 2019-11-11 19:00 | NUR ---
RN MS OPENING NOTES RECEIVED PATIENT IN BED AWAKE ALERT AND ORIENTED X4, RESPIRATIONS EVEN AND UNLABORED WITH EQUAL RISE AND FALL OF CHEST, DENIES ANY PAIN OR DISCOMFORT AT THIS TIME, DENIES ANY SI/HI. COMPLAINT, ORIENTED TO STAFF AND CALL LIGHT AND KEPT WITHIN REACH, SAFETY PRECAUTIONS RENDERED, FLUIDS OFFERED, ALL NEEDS ATTENDED WILL CONTINUE TO MONITOR. APPEARS CALM AND PLEASANT AT THIS TIME.
[2019-11-11 20:00] VITALS: BP 112/79
[2019-11-11 20:14] VITALS: BP 112/79
--- NOTE | 2019-11-12 06:36 | NUR ---
RN MS CLOSING NOTES PATIENT IN BED AWAKE ALERT AND ORIENTED X4, RESPIRATIONS EVEN AND UNLABORED WITH EQUAL RISE AND FALL OF CHEST, DENIES ANY PAIN OR DISCOMFORT AT THIS TIME, DENIES ANY SI/HI. COMPLAINT, SLEPT WELL, PATIENT MOSTLY STAYS IN ROOM, INTERACTIVE WHEN ENGAGED, CALL LIGHT KEPT WITHIN REACH, SAFETY PRECAUTIONS RENDERED, FLUIDS OFFERED, ALL NEEDS ATTENDED WILL CONTINUE TO MONITOR AND ENDORSE TO NEXT SHIFT. APPEARS CALM AND PLEASANT AT THIS TIME.
[2019-11-12 08:00] VITALS: BP 128/85
[2019-11-12 16:00] VITALS: BP 109/76
--- NOTE | 2019-11-12 19:00 | NUR ---
RN MS OPENING NOTES RECEIVED PATIENT IN BED AWAKE ALERT AND ORIENTED X4, RESPIRATIONS EVEN AND UNLABORED WITH EQUAL RISE AND FALL OF CHEST, DENIES ANY PAIN OR DISCOMFORT AT THIS TIME, DENIES ANY SI/HI,MAINLY STAYS IN ROOM, INTERACTIVE WHEN ENGAGED, COMPLAINT, ORIENTED TO STAFF AND CALL LIGHT AND KEPT WITHIN REACH, SAFETY PRECAUTIONS RENDERED, FLUIDS OFFERED, ALL NEEDS ATTENDED WILL CONTINUE TO MONITOR. APPEARS CALM AND PLEASANT AT THIS TIME.
[2019-11-12 20:00] VITALS: BP 111/70
[2019-11-12 20:01] VITALS: BP 111/70
--- NOTE | 2019-11-13 06:40 | NUR ---
RN MS CLOSING NOTES RECEIVED PATIENT IN BED AWAKE ALERT AND ORIENTED X4, RESPIRATIONS EVEN AND UNLABORED WITH EQUAL RISE AND FALL OF CHEST, DENIES ANY PAIN OR DISCOMFORT AT THIS TIME, DENIES ANY SI/HI,MAINLY STAYS IN ROOM, INTERACTIVE WHEN ENGAGED, COMPLAINT, CALL LIGHT KEPT WITHIN REACH, SAFETY PRECAUTIONS RENDERED, FLUIDS OFFERED, ALL NEEDS ATTENDED WILL CONTINUE TO MONITOR AND ENDORSE TO NEXT SHIFT. APPEARS CALM AND PLEASANT AT THIS TIME.
--- NOTE | 2019-11-13 07:15 | NUR ---
MS RN NOTES PATIENT IN BED ALERT ORIENTED X 3. NO ACUTE DISTRESS NOTED. BREATHING UNLABORED. SAFETY MEASURES IN PLACE. CALL LIGHT WITHIN REACH. WILL CONTINUE TO MONITOR ACCORDINGLY.
[2019-11-13 08:00] VITALS: BP 113/78
[2019-11-13 16:00] VITALS: BP 108/78
--- NOTE | 2019-11-13 19:03 | NUR ---
MS RN NOTES PATIENT SITTING IN BED ALERT ORIENTED X 3. NO ACUTE DISTRESS NOTED. BREATHING UNLABORED. SAFETY MEASURES IN PLACE. CALL LIGHT WITHIN REACH. WILL ENDORSE TO NIGHT NURSE FOR CONTINUITY OF CARE.
--- NOTE | 2019-11-13 19:10 | NUR ---
ANODE WORKER: RECEIVED REPORT FROM LINETTE PIPER. PT IN BED, AWAKE. A/O X4, CLINICAL TRIAL UNDER DR VIRGEN. PT DENIES ANY PLANS OF HURTING HERSELF. DENIES ANY PAIN OR DISCOMFORT AT THIS TIME. REFUSED SKIN ASSESSMENT. PT AMBULATORY, CONTINENT. SMOKER, BUT COMPLIANT WITH SMOKING TIMES. INVESTIGATIONAL MED TO START ON NOV 18, 2019. SAFETY PRECAUTIONS FOR FALL INITIATED, CALL LIGHT IN REACH, WILL CONTINUE MONITORING PT.
[2019-11-13 20:00] VITALS: BP 117/78
--- NOTE | 2019-11-14 07:01 | NUR ---
EOSS: PT REMAINS COOPERATIVE, NO COMPLAINTS NOTED. DENIES ANY PLANS OF HURTING HERSELF. ABLE TO SLEEP FOR A TOTAL OF 6HRS. VS REMAINS STABLE, NEEDS ATTENDED. SAFETY PRECAUTIONS FOR FALL REMAINS ENGAGED, CALL LIGHT IN REACH, WILL ENDORSE TO DAY RN FOR CONTINUITY OF CARE.
--- NOTE | 2019-11-14 07:15 | NUR ---
M/S RN NOTES PATIENT AWAKE IN BED, ALERT ORIENTED X3. NO RESPIRATORY DISTRESS, NO C/O PAIN OR ANY DISCOMFORT. NO SI OR HI. PATIENT'S NEEDS ATTENDED, BED ON LOWEST LOCKED POSITION, CALL LIGHT WITHIN REACH. WILL CONTINUE TO MONITOR.
[2019-11-14 08:24] VITALS: BP 113/74
[2019-11-14 17:12] VITALS: BP 118/72
--- NOTE | 2019-11-14 19:15 | NUR ---
M/S RN NOTES PATIENT AWAKE IN BED, NO ACUTE DISTRESS NOTED, NO SI OR HI. PATIENT'S NEEDS ATTENDED, BED ON LOWEST LOCKED POSITION, CALL LIGHT WITHIN REACH. WILL ENDORSE TO ONCOMING NURSE.
--- NOTE | 2019-11-14 19:40 | NUR ---
RN OPENING NOTES RECEIVED PATIENT IN BED, AWAKE, A/O X 4, CLINICAL TRIAL UNDER DR. VIRGEN. NO SIGNS OF DISTRESS, DENIES SOB. PATIENT DENIES ANY PLANS OF HURTING HERSELF. PATIENT DENIES PAIN OR DISCOMFORT AT THIS TIME. REFUSED TO HAVE SKIN ASSESSED. PATIENT AMBULATORY, CONTINENT. PATIENT IS INTERACTIVE WHEN ENGAGED, PATIENT APPEARS CALM AND PLEASANT AT THIS TIME. PATIENT IS A SMOKER, ASKED TO GO SMOKE AT 2030 WITH WATCH REPAIRER APPRENTICE ACCOMPANYING HER, SHE WILL LET THE STAFF BE AWARE. SAFETY PRECAUTIONS IMPLEMENTED; CALL LIGHT WITHIN REACH, BED LOWEST POSITION, BED LOCKED, BILATERAL UPPER SIDE RAILS UP. WILL CONTINUE TO MONITOR.
[2019-11-14 20:00] VITALS: BP 130/70
--- NOTE | 2019-11-15 06:46 | NUR ---
RN CLOSING NOTES PATIENT REMAINS STABLE. PATIENT WAS COOPERATIVE, NO COMPLAINTS THROUGHOUT THE SHIFT. PATIENT DENIES PLANS OF HURTING HERSELF. PATIENT HAS BEEN CALM AND PLEASANT AT THIS TIME. SAFETY PRECAUTIONS IMPLEMENTED; CALL LIGHT WITHIN REACH, BED LOWEST POSITION, BED LOCKED, BILATERAL UPPER SIDE RAILS UP. WILL ENDORSE TO DAY SHIFT NURSE FOR CONTINUITY OF CARE.
--- NOTE | 2019-11-15 07:25 | NUR ---
CT/MS RN OPENING NOTES RECEIVED PT IN BED, AWAKE, A/O X3-4. PT TOLERATING RA, WITH NO ACUTE RESPIRATORY DISTRESS NOTED. PT DENIES ANY PAIN OR DISCOMFORT AT THIS TIME. ALSO DENIES ANY QUESTIONS OR CONCERNS. NO IV ACCESS. PT KEPT COMFORTABLE. CALL LIGHT KEPT WITHIN REACH. PT'S BED IN LOWEST, LOCKED POSITION WITH SR X3. WILL CONTINUE PLAN OF CARE.
[2019-11-15 08:00] VITALS: BP 113/63
[2019-11-15 16:00] VITALS: BP 113/73
--- NOTE | 2019-11-15 18:37 | NUR ---
CT/MS RN CLOSING NOTES PT REMAINS IN BED, AWAKE, A/O X3-4. PT TOLERATING RA, WITH NO ACUTE RESPIRATORY DISTRESS NOTED. PT DENIES ANY PAIN OR DISCOMFORT AT THIS TIME. COMPLIANT WITH SMOKING SCHEDULE. NO IV ACCESS. PT KEPT COMFORTABLE. ALL NEEDS AND CARE ATTENDED. CALL LIGHT KEPT WITHIN REACH. PT'S BED IN LOWEST, LOCKED POSITION WITH SR X3. WILL ENDORSE TO INCOMING MEDICAL ESTHETICIAN RANDOLPH.
--- NOTE | 2019-11-15 19:20 | NUR ---
MS RN OPENING NOTES: RECEIVED PT ON ROOM AIR AND IS TOLERATING WELL. NO SOB NOTED. NO S/S OF DISTRESS. NO IVS NOTED AT THIS TIME. PT ASLEEP AND RESTING COMFORTABLY. PT EASILY AROUSABLE TO NAME AND TOUCH. BED KEPT IN LOW, LOCKED POSITION, AND SIDE RAILS X 2UP. WILL CONTINUE TO MONITOR PT.
[2019-11-15 20:00] VITALS: BP 110/72
--- NOTE | 2019-11-15 20:29 | NUR ---
RN NOTES: PT WENT DOWN FOR SMOKE BREAK WITH DECORATING SUPERVISOR.
--- NOTE | 2019-11-15 20:39 | NUR ---
RN NOTES: PT BACK FROM SMOKE BREAK.
--- NOTE | 2019-11-16 07:24 | NUR ---
RN CLOSING NOTES: ALL NEEDS WERE ANTICIPATED FOR. PT KEPT CLEAN AND DRY. PT ASLEEP AT THIS TIME. NO SOB NOTED. NO IV NOTED. BED KEPT IN LOW, LOCKED POSITION, AND SIDE RAILS X 2UP. ENDORSED TO AM NURSE FOR RANDOLPH.
[2019-11-16 16:00] VITALS: BP 141/91
--- NOTE | 2019-11-16 19:02 | NUR ---
CT/MS RN CLOSING NOTES PT IN BED, AWAKE, A/O X3-4. PT TOLERATING RA, WITH NO ACUTE RESPIRATORY DISTRESS NOTED. PT DENIES ANY PAIN OR DISCOMFORT AT THIS TIME. NO IV ACCESS. PT KEPT COMFORTABLE.ALL NEEDS AND ATTENDED. CALL LIGHT KEPT WITHIN REACH. PT'S BED IN LOWEST, LOCKED POSITION WITH SR X3. WILL ENDORSE TO INCOMING NIGHT NURSE FOR RANDOLPH.
[2019-11-16] MEDS: LORAZEPAM 1 MG TABLET FOR AGITATION PO PRN (19:11)
[2019-11-16 20:00] VITALS: BP 107/67
--- NOTE | 2019-11-16 20:46 | NUR ---
MS RN NOTES RECEIVED PATIENT AWAKE AND CALM IN BED WITH NO DISTRESS NOTED. CALL LIGHT WITHIN REACH. NO C/O PAIN OR DISCOMFORT. ENCOURAGED USE OF CALL LIGHT FOR ASSISTANCE AND VERBALIZED GOOD UNDERSTANDING. BED IN LOW LOCK SETTING. ROOM FREE OF CLUTTER AND BELONGINGS KEPT NEAR BEDSIDE. WILL CONTINUE TO MONITOR.
--- NOTE | 2019-11-17 06:03 | NUR ---
MS RN NOTES PATIENT ASLEEP IN BED WITH NO DISTRESS NOTED. CALL LIGHT WITHIN REACH. NO C/O PAIN OR DISCOMFORT. NO BEHAVIORAL PROBLEMS NOTED DURING SHIFT. BED IN LOW LOCK SETTING. ROOM FREE OF CLUTTER AND BELONGINGS KEPT NEAR BEDSIDE. WILL ENDORSE TO ONCOMING SHIFT.
[2019-11-17 08:00] VITALS: BP 114/73
[2019-11-17 16:00] VITALS: BP 115/77
--- NOTE | 2019-11-17 19:15 | NUR ---
MS RN NOTES PATIENT IN BED ALERT ORIENTED X 3. NO ACUTE DISTRESS NOTED. BREATHING UNLABORED. NEEDS ATTENDED AND ANTICIPATED. KEPT CLEAN DRY AND COMFORTABLE.SAFETY MEASURES IN PLACE. CALL LIGHT WITHIN REACH. WILL ENDORSE TO NIGHT NURSE FOR CONTINUITY OF CARE.
[2019-11-17] MEDS: LORAZEPAM 1 MG TABLET FOR AGITATION PO PRN (19:47)
[2019-11-17 20:00] VITALS: BP 114/70
--- NOTE | 2019-11-17 20:00 | NUR ---
MS RN NOTES RECEIVED PATIENT AWAKE AND CALM IN BED WITH NO DISTRESS NOTED. CALL LIGHT WITHIN REACH. EXPLAINED POC OF NPO AFTER 2100 TONIGHT AND PATIENT VERBALIZED GOOD UNDERSTANDING. NO C/O PAIN OR DISCOMFORT. ENCOURAGED USE OF CALL LIGHT FOR ASSISTANCE AND VERBALIZED GOOD UNDERSTANDING. BED IN LOW LOCK SETTING. ROOM FREE OF CLUTTER AND BELONGINGS KEPT NEAR BEDSIDE. WILL CONTINUE TO MONITOR.
--- NOTE | 2019-11-18 06:27 | NUR ---
MS RN NOTES PATIENT ASLEEP IN BED WITH NO DISTRESS NOTED. CALL LIGHT WITHIN REACH. NPO STATUS OBSERVED AND MAINTAINED AT ALL TIMES. NO C/O PAIN OR DISCOMFORT. BED IN LOW LOCK SETTING. ROOM FREE OF CLUTTER AND BELONGINGS KEPT NEAR BEDSIDE. WILL ENDORSE TO ONCOMING SHIFT.
[2019-11-18 08:00] VITALS: BP 108/71
--- NOTE | 2019-11-18 08:00 | NUR ---
MS RN OPENING NOTES RECEIVED PT IN BED. MYRANDA, ALERT AND ORIENTED X3-4. NO CARDIAC OR RESPIRATORY DISTRESS NOTED. CONTINENT OF B/B. AMBULATORY. KEPT NPO THIS AM. PT IS CALM AND COOPERATIVE WITH TXS AT THIS TIME. PT IS FULL CODE.
[2019-11-18 16:00] VITALS: BP 122/73
[2019-11-18] MEDS: LORAZEPAM 1 MG TABLET FOR AGITATION PO PRN (18:44)
--- NOTE | 2019-11-18 19:15 | NUR ---
MS RN NOTE RECEIVED PT IN STABLE CONDITION A/O X4, WATCHING TV. PT COMPLIANT WITH CARE AND PROCEDURE, REMINDED TO LET STATION KNOW IF WANTING TO LEAVE FLOOR, VERBALIZES UNDERSTANDING. ALL CURRENT NEEDS ATTENDED TO. BED LOW, LOCKED, UPPER RAILS UP AND CALL LIGHT WITHIN REACH. WILL CONT. TO MONITOR.
[2019-11-18] MEDS: [UNRECOGNIZED DRUG - OTHER] PO SCH (21:06)
[2019-11-18 21:23] VITALS: BP 109/73
--- NOTE | 2019-11-19 06:13 | NUR ---
MS RN NOTE PT REMAINS IN STABLE CONDITION A/O X4, RESTING IN BED. PT COMPLIANT WITH CARE AND PROCEDURE THROUGHOUT SHIFT. ALL CURRENT NEEDS ATTENDED TO. BED LOW, LOCKED, UPPER RAILS UP AND CALL LIGHT WITHIN REACH. WILL CONT. TO MONITOR AND ENDORSE TO NEXT SHIFT FOR RANDOLPH.
--- NOTE | 2019-11-19 08:00 | NUR ---
MS RN OPENING NOTE RECEIVED PT IN BED, AWAKE ALERT AND ORIENTED X4. STABLE CONDITION, PT LISTENING TO MUSIC AND WATCHING TV. PT CALM AND COOPERATIVE, COMPLIANT WITH CARE, REMINDED TO LET NURSING STAFF KNOW IF WANTING TO LEAVE FLOOR, VERBALIZES UNDERSTANDING. ALL CURRENT NEEDS ATTENDED TO. BED LOW, LOCKED, UPPER RAILS UP AND CALL LIGHT WITHIN REACH. WILL CONT. TO MONITOR.
[2019-11-19 15:43] VITALS: BP 101/61
[2019-11-19 16:34] VITALS: BP 101/61
--- NOTE | 2019-11-19 18:02 | NUR ---
MS RN CLOSING NOTES PT IN BED, AWAKE, ALERT AND ORIENTED. NO CARDIAC OR RESPIRATORY DISTRESS NOTED. BREATH SOUNDS CLEAR. BREATHING EVEN AND UNLABORED. PT IS CALM AND COOPERATIVE WITH STAFF. NO BEHAVIORAL ISSUES NOTED.
[2019-11-19 20:00] VITALS: BP 115/73
[2019-11-19] MEDS: LORAZEPAM 1 MG TABLET FOR AGITATION PO PRN (21:14)
[2019-11-19] MEDS: [UNRECOGNIZED DRUG - OTHER] PO SCH (21:15)
--- NOTE | 2019-11-20 06:24 | NUR ---
MS RN NOTES AWAKE & RESPONSIVE. NOT IN ANY DISTRESS. NO SOB NOTED. DENIES ANY PAIN OR DISCOMFORT AT THIS TIME. MONITORED ACCORDINGLY. SLEPT FOR 9 HOURS. CALL LIGHT WITHIN REACH. BED IN LOWEST POSITION. SR UP X 2 FOR SAFETY. WILL ENDORSE TO NEXT SHIFT.
[2019-11-20 08:00] VITALS: BP 110/74
[2019-11-20 16:00] VITALS: BP 121/74
--- NOTE | 2019-11-20 18:00 | NUR ---
MS RN CLOSING NOTES PT IN BED, AWAKE, ALERT AND ORIENTED. NO CARDIAC OR RESPIRATORY DISTRESS NOTED. BREATH SOUNDS CLEAR. BREATHING EVEN AND UNLABORED. PT IS CALM AND COOPERATIVE WITH STAFF. NO BEHAVIORAL ISSUES NOTED. REMINDED PT TO LET NURSING STAFF KNOW IF WANTING TO LEAVE THE FLOOR. PT AGREED. WILL ENDORSE TO NEXT SHIFT
--- NOTE | 2019-11-20 19:44 | NUR ---
MS RN OPENING NOTE RECEIVED PATIENT IN BED. A/O X4. TOLERATING ROOM AIR. RESPIRATIONS ARE EVEN AND UNLABORED. NO S/S SOB NOTED. DENIES PAIN AT THIS TIME. NO IV ACCESS NOTED. IN NO APPARENT DISTRESS. BED IS LOW AND LOCKED, HOB FLAT, SIDE RAILS UP X2, CALL LIGHT WITHIN REACH. WILL CONTINUE TO MONITOR.
[2019-11-20 20:00] VITALS: BP 120/73
[2019-11-20] MEDS: LORAZEPAM 1 MG TABLET FOR AGITATION PO PRN (21:43)
[2019-11-20] MEDS: [UNRECOGNIZED DRUG - OTHER] PO SCH (21:43)
--- NOTE | 2019-11-20 21:43 | NUR ---
MS RN NOTE ADMINISTERED PRN ATIVAN 1MG PO PER PATIENT REQUEST. ADDED PATIENT TO [employer] CELL D/T PATIENT NOT LOGGED IN MACHINE, USE NAME, , AND PATIENT IDENTIFICATION NUMBERS. WILL CONTINUE TO MONITOR.
[2019-11-21 08:00] VITALS: BP 114/74
--- NOTE | 2019-11-21 08:00 | NUR ---
MS RN OPENING NOTES Received Patient asleep and resting in bed. A/O x 4. VS stable with no acute distress. Breathing even and unlabored on room air with no respiratory distress. Denies pain. Safety precautions in place. Bed locked and set to lowest position with side rails x 2 up. All needs rendered at this time. Call light within reach. Will continue to monitor.
--- NOTE | 2019-11-21 08:52 | NUR ---
MS RN NOTES Patient picked up by care management assistant from Dr. Gudino office for follow up appointment at this time. Patient in stable condition and ambulatory.
[2019-11-21 16:00] VITALS: BP 115/73
--- NOTE | 2019-11-21 18:40 | NUR ---
MS RN CLOSING NOTES Patient awake and resting in bed. A/O x 4. VS stable with no acute distress. Breathing even and unlabored on room air with no respiratory distress. Denies pain. Safety precautions in place. Bed locked and set to lowest position with side rails x 2 up. All needs rendered at this time. Call light within reach. Will endorse plan of care to oncoming shift.
[2019-11-21 19:30] VITALS: BP 127/84
--- NOTE | 2019-11-21 19:41 | NUR ---
MS RN NOTES PATIENT IN BED, ALERT AND ORIENTED X 4. BREATHING EVEN AND UNLABORED ON ROOM AIR. DENIES ACUTE RESPIRATORY DISTRESS NO ACUTE PAIN. SAFETY PRECAUTION IN PLACE. BED LOWEST POSTION, LOCKED AND CALL LIGHT KEPT WITHIN REACH. WILL CONTINUE TO MONITOR.
[2019-11-21 20:00] VITALS: BP 127/84
[2019-11-21] MEDS: [UNRECOGNIZED DRUG - OTHER] PO SCH (22:10)
[2019-11-21] MEDS: LORAZEPAM 1 MG TABLET FOR AGITATION PO PRN (22:10)
--- NOTE | 2019-11-22 07:18 | NUR ---
MS RN NOTES PATIENT IN BED, AWAKE, ALERT AND ORIENTED X 4. BREATHING EVEN AND UNLABORED ON ROOM AIR. DENIES ACUTE RESPIRATORY DISTRESS NO ACUTE PAIN. SAFETY PRECAUTION IN PLACE. BED LOWEST POSITION, LOCKED AND CALL LIGHT KEPT WITHIN REACH. WILL CONTINUE TO MONITOR.
[2019-11-22 08:00] VITALS: BP 122/80
[2019-11-22 16:00] VITALS: BP 117/80
[2019-11-22 20:00] VITALS: BP 118/78
[2019-11-22] MEDS: [UNRECOGNIZED DRUG - OTHER] PO SCH (21:14)
--- NOTE | 2019-11-23 06:49 | NUR ---
RN MS CLOSING NOTES PATIENT IN BED AWAKE ALERT AND ORIENTED X4, RESPIRATIONS EVEN AND UNLABORED WITH EQUAL RISE AND FALL OF CHEST, DENIES ANY PAIN OR DISCOMFORT AT THIS TIME, DENIES ANY SI/HI AT THIS TIME, NO IV SITE PRESENT MD AWARE, ALL NEEDS ATTENDED AT THIS TIME WILL CONTINUE TO MONITOR AND ATTEND TO NEEDS. REMAINS COMFORTABLE AT THIS TIME.
--- NOTE | 2019-11-23 07:10 | NUR ---
M/S RN NOTES PATIENT AWAKE IN LYING IN BED, ALERT AND ORIENTED X4, DENIES SI/HI AT THIS TIME. NO RESPIRATORY DISTRESS, NO C/O PAIN AT THIS TIME. PATIENT'S NEEDS ATTENDED, BED ON LOWEST LOCKED POSITION, CALL LIGHT WITHIN REACH. WILL CONTINUE TO MONITOR.
[2019-11-23 08:00] VITALS: BP 107/67
[2019-11-23 16:00] VITALS: BP 110/60
--- NOTE | 2019-11-23 18:45 | NUR ---
M/S RN NOTES PATIENT AWAKE IN BED, WATCHING TV, DENIES SI/HI AT THIS TIME. NO RESPIRATORY DISTRESS, NO C/O PAIN AT THIS TIME. PATIENT'S NEEDS ATTENDED, BED ON LOWEST LOCKED POSITION, CALL LIGHT WITHIN REACH. WILL ENDORSE TO ONCOMING NURSE.
[2019-11-23 20:00] VITALS: BP 107/77
[2019-11-23 20:39] VITALS: BP 107/77
[2019-11-23] MEDS: [UNRECOGNIZED DRUG - OTHER] PO SCH (21:09)
--- NOTE | 2019-11-24 07:49 | NUR ---
RN OPENING NOTES RECEIVED PATIENT IN BED RESTING. A/OX4, ABLE TO MAKE NEEDS KNOWN. NOT IN ANY FORM OF DISTRESS. NO SOB. DENIED PAIN AT THIS TIME. IV ACCESS INTACT AND PATENT. KEPT PATIENT SAFE AND COMFORTABLE. BED IN LOW/LOCKED POSITION. SIDERAILS UPX2, CALL LIGHT IN REACH. WILL CONT TO MONITOR ACCORDINGLY. Addendum: 11/24/19 at 1414 by LELO WISE CORRECTION: PATIENT HAS NO IV ACCESS. PATIENT IS A CLINICAL TRIAL
--- NOTE | 2019-11-24 07:49 | NUR ---
RN MS CLOSING NOTES PATIENT IN BED AWAKE ALERT AND ORIENTED X4, RESPIRATIONS EVEN AND UNLABORED WITH EQUAL RISE AND FALL OF CHEST, DENIES ANY PAIN OR DISCOMFORT AT THIS TIME, DENIES ANY SI/HI AT THIS TIME, NO IV SITE PRESENT MD AWARE, ALL NEEDS ATTENDED AT THIS TIME WILL CONTINUE TO MONITOR AND ATTEND TO NEEDS. REMAINS COMFORTABLE AT THIS TIME WILL ENDORSE TO NEXT SHIFT.
[2019-11-24 08:00] VITALS: BP 112/60
[2019-11-24 16:00] VITALS: BP 118/68
--- NOTE | 2019-11-24 19:00 | NUR ---
RN MS OPENING NOTES RECEIVED PATIENT IN BED AWAKE ALERT AND ORIENTED X4, RESPIRATIONS EVEN AND UNLABORED WITH EQUAL RISE AND FALL OF CHEST, DENIES ANY PAIN OR DISCOMFORT AT THIS TIME, DENIES ANY SI/HI AT THIS TIME, NO IV SITE PRESENT MD AWARE, ALL NEEDS ATTENDED AT THIS TIME WILL CONTINUE TO MONITOR AND ATTEND TO NEEDS. REMAINS COMFORTABLE AT THIS TIME. FLUIDS OFFERED.
--- NOTE | 2019-11-24 19:34 | NUR ---
RN CLOSING NOTES PATIENT IN STABLE CONDITION. ALL NEEDS ATTENDED AND PROVIDED. KEPT PATIENT SAFE AND COMFORTABLE. BED IN LOW/LOCKED POSITION. SIDERAILS UPX2, CALL LIGHT IN REACH. ENDORSED TO DANNA PIPER FOR RANDOLPH.
[2019-11-24 20:00] VITALS: BP 122/83
[2019-11-24 20:34] VITALS: BP 122/83
[2019-11-24] MEDS: [UNRECOGNIZED DRUG - OTHER] PO SCH (21:21)
--- NOTE | 2019-11-25 07:10 | NUR ---
RN MS CLOSING NOTES PATIENT IN BED AWAKE ALERT AND ORIENTED X4, RESPIRATIONS EVEN AND UNLABORED WITH EQUAL RISE AND FALL OF CHEST, DENIES ANY PAIN OR DISCOMFORT AT THIS TIME, DENIES ANY SI/HI AT THIS TIME, NO IV SITE PRESENT MD AWARE, ALL NEEDS ATTENDED AT THIS TIME WILL CONTINUE TO MONITOR AND ATTEND TO NEEDS AND ENDORSE TO NEXT SHIFT. REMAINS COMFORTABLE AT THIS TIME. SLEPT WELL.
--- NOTE | 2019-11-25 07:15 | NUR ---
MS RN NOTES PATIENT IN BED ALERT ORIENTED X 4. NO ACUTE DISTRESS NOTED. BREATHING UNLABORED. NO SOB NOTED. DENIED ANY PAIN AT THIS TIME. SAFETY MEASURES IN PLACE. CALL LIGHT WITHIN REACH. WILL CONTINUE TO MONITOR ACCORDINGLY.
[2019-11-25 08:00] VITALS: BP 108/70
[2019-11-25 16:00] VITALS: BP 112/77
--- NOTE | 2019-11-25 19:00 | NUR ---
MS RN NOTE RECEIVED PT IN STABLE CONDITION A/O X4, CURRENTLY IN ROOM WATCHING TV. NO SIGNS OF SOB OR DISTRESS, COOPERATIVE WITH STAFF. ALL CURRENT NEEDS ATTENDED TO. BED LOCKED, UPPER RAILS UP AND CALL LIGHT WITHIN REACH. WILL CONT. TO MONITOR.
--- NOTE | 2019-11-25 19:00 | NUR ---
MS RN NOTES PATIENT IN BED ALERT ORIENTED X 4. NO ACUTE DISTRESS NOTED. BREATHING UNLABORED. NO SOB NOTED. DENIED ANY PAIN AT THIS TIME. NEEDS ATTENDED AND ANTICIPATED. KEPT COMFORTABLE. SAFETY MEASURES IN PLACE. CALL LIGHT WITHIN REACH. WILL ENDORSE TO NIGHT NURSE FOR CONTINUITY OF CARE.
[2019-11-25] MEDS: [UNRECOGNIZED DRUG - OTHER] PO SCH (21:20)
--- NOTE | 2019-11-26 06:51 | NUR ---
MS RN NOTE PT REMAINS IN STABLE CONDITION A/O X4, CURRENTLY RESTING IN BED. NO SIGNS OF SOB OR DISTRESS, COOPERATIVE WITH STAFF. ALL CURRENT NEEDS ATTENDED TO. BED LOCKED, UPPER RAILS UP AND CALL LIGHT WITHIN REACH. WILL CONT. TO MONITOR AND ENDORSE TO NEXT SHIFT FOR RANDOLPH.
[2019-11-26 08:00] VITALS: BP 105/74
[2019-11-26 16:00] VITALS: BP 115/60
--- NOTE | 2019-11-26 19:16 | NUR ---
MS RN NOTE RECEIVED PT IN STABLE CONDITION A/O X4, NOTED IN ROOM NO SIGNS OF SOB OR DISTRESS, NO C/O PAIN. COMPLIANT WITH CURRENT PLAN OF CARE. ALL CURRENT NEEDS ATTENDED TO. SAFETY MEASURES IN PLACE. WILL CONT. TO MONITOR.
[2019-11-26 19:51] VITALS: BP 125/79
[2019-11-26] MEDS: [UNRECOGNIZED DRUG - OTHER] PO SCH (21:05)
--- NOTE | 2019-11-27 06:46 | NUR ---
MS RN NOTE PT REMAINS IN STABLE CONDITION A/O X4, NOTED IN ROOM RESTING. NO SIGNS OF SOB OR DISTRESS, NO C/O PAIN. COMPLIANT WITH CURRENT PLAN OF CARE THROUGHOUT SHIFT. ALL CURRENT NEEDS ATTENDED TO. SAFETY MEASURES IN PLACE. WILL CONT. TO MONITOR AND ENDORSE TO NEXT SHIFT FOR RANDOLPH.
--- NOTE | 2019-11-27 07:18 | NUR ---
MS RN OPENING NOTES RECEIVED PATIENT ALERT AND AWAKE ORIENTED X4. AMBULATING ALONG UNIT WITH STEADY GAIT. NO SOB. DENIES ANY C/O PAIN NOR DISCOMFORT AT THIS TIME. ON CLINICAL TRIALS. CALL LIGHT WITHIN REACH. ABLE TO VERBALIZE NEEDS.
[2019-11-27 07:30] VITALS: BP 104/69
--- NOTE | 2019-11-27 18:56 | NUR ---
MS RN CLOSING NOTES ALERT AND AWAKE ORIENTED X4. AMBULATING ALONG UNIT WITH STEADY GAIT. NO SOB. DENIES ANY C/O PAIN NOR DISCOMFORT AT THIS TIME. ON CLINICAL TRIALS WITHOUT COMPLICATIONS OBSERVED. DENIES ANY SUICIDAL IDEATION/HALLUCINATIONS CALL LIGHT WITHIN REACH. ABLE TO VERBALIZE NEEDS. IN NO APPARENT DISTRESS.
[2019-11-27 20:00] VITALS: BP 111/77
[2019-11-27 20:11] VITALS: BP 111/77
[2019-11-27] MEDS: LORAZEPAM 1 MG TABLET FOR AGITATION PO PRN (21:23)
[2019-11-27] MEDS: [UNRECOGNIZED DRUG - OTHER] PO SCH (21:23)
--- NOTE | 2019-11-27 21:23 | NUR ---
MS RN NOTE ADMINISTERED PRN ATIVAN 1MG PER PATIENT REQUEST. WILL CONTINUE TO MONITOR.
--- NOTE | 2019-11-28 07:14 | NUR ---
MS RN OPENING NOTES RECEIVED PATIENT ALERT AND AWAKE ORIENTED X4. NO SOB. DENIES ANY C/O PAIN NOR DISCOMFORT AT THIS TIME. ON CLINICAL TRIALS. CALL LIGHT WITHIN REACH. BED IN LOWEST POSITION, LOCKED. AMBULATORY WITH STEADY GAIT. ABLE TO VERBALIZE NEEDS.
[2019-11-28 07:30] VITALS: BP 102/68
--- NOTE | 2019-11-28 19:26 | NUR ---
MS RN CLOSING NOTES ALERT AND AWAKE ORIENTED X4. NO SOB. DENIES ANY C/O PAIN NOR DISCOMFORT AT THIS TIME. ON CLINICAL TRIALS WITHOUT COMPLICATIONS OBSERVED. DENIES ANY SUICIDAL IDEATION/HALLUCINATIONS CALL LIGHT WITHIN REACH. ABLE TO VERBALIZE NEEDS. IN NO APPARENT DISTRESS.
[2019-11-28 20:16] VITALS: BP 126/71
[2019-11-28] MEDS ORDERED: LORAZEPAM 1 MG TABLET ONE (21:14)
[2019-11-28] MEDS: [UNRECOGNIZED DRUG - OTHER] PO SCH (21:18)
[2019-11-28] MEDS: LORAZEPAM 1 MG TABLET FOR AGITATION PO PRN (21:19)
--- NOTE | 2019-11-29 06:46 | NUR ---
RN NOTES PM SHIFT PATIENT ASLEEP FOR 7 HOURS, GIVEN ATIVAN BEFORE BEDTIME, NO BEHAVIOUR DISTURBANCE.
--- NOTE | 2019-11-29 07:42 | NUR ---
RN MS NOTES PT AWAKE, ALERT AND ORIENTED, SITTING ON HER CHAIR, NO COMPLAINT OF PAIN, NOT IN DISTRESS, CALL LIGHT WITHIN REACH, NEEDS ATTENDED.
[2019-11-29 08:00] VITALS: BP 117/80
[2019-11-29 16:00] VITALS: BP 121/71
--- NOTE | 2019-11-29 18:13 | NUR ---
RN MS NOTES PT IN HER ROOM EATING DINNER, COMPLIANT WITH NURSING CARE, NO BEHAVIOR PROBLEM NOTED.
--- NOTE | 2019-11-29 19:15 | NUR ---
MS RN NOTE RECEIVED PT IN STABLE CONDITION A/O X4, CURRENTLY WATCHING TV IN ROOM. NO SIGNS OF SOB OR DISTRESS, NO C/O PAIN. PT COOPERATIVE WITH CURRENT PLAN OF CARE. ALL NEEDS ATTENDED TO. SAFETY MEASURES IN PLACE. WILL CONT. TO MONITOR.
[2019-11-29] MEDS ORDERED: LORAZEPAM 1 MG TABLET ONE (21:22)
[2019-11-29] MEDS: LORAZEPAM 1 MG TABLET FOR AGITATION PO PRN (21:26)
[2019-11-29] MEDS: [UNRECOGNIZED DRUG - OTHER] PO SCH (21:26)
[2019-11-29 22:21] VITALS: BP 121/76
--- NOTE | 2019-11-30 06:34 | NUR ---
MS RN NOTE PT REMAINS IN STABLE CONDITION A/O X4, AWAKE AND IN ROOM. NO SIGNS OF SOB OR DISTRESS, NO C/O PAIN. PT COOPERATIVE WITH CURRENT PLAN OF CARE. ALL NEEDS ATTENDED TO. SAFETY MEASURES IN PLACE. WILL CONT. TO MONITOR AND ENDORSE TO NEXT SHIFT FOR RANDOLPH.
--- NOTE | 2019-11-30 07:30 | NUR ---
PT RECEIVED RESTING COMFORTABLY IN BED. NO S/S OR C/O PAIN OR DISTRESS NOTED. SIDE RAILS UP X2, CALL LIGHT LEFT WITHIN REACH. WILL CONTINUE PLAN OF CARE.
[2019-11-30 08:00] VITALS: BP 123/73
[2019-11-30 16:00] VITALS: BP 129/76
--- NOTE | 2019-11-30 19:40 | NUR ---
CHANGE OF SHIFT REPORT PT RESTING COMFORTABLY IN BED. NO S/S OR C/O PAIN OR DISTRESS NOTED. SIDE RAILS UP X2. CALL LIGHT LEFT WITHIN REACH. PT KEPT CLEAN, DRY, AND COMFORTABLE. NO SIGNIFICANT CHANGES SINCE PREVIOUS SHIFT. REPORT GIVEN TO DAVID PIPER.
[2019-11-30 20:28] VITALS: BP 121/73
[2019-11-30] MEDS: [UNRECOGNIZED DRUG - OTHER] PO SCH (21:46)
[2019-11-30] MEDS ORDERED: LORAZEPAM 0.5 MG TABLET ONE (21:51)
--- NOTE | 2019-12-01 06:41 | NUR ---
MS RN NOTES PATIENT ASLEEP IN BED WITH NO DISTRESS NOTED. CALL LIGHT WITHIN REACH. ALL DUE MEDS GIVEN ORDERED WITH NO ASE. NO C/O PAIN OR DISCOMFORT. PERIPHERAL LINE INTACT AND PATENT. BED IN LOW LOCK SETTING. ROOM FREE OF CLUTTER AND BELONGINGS KEPT NEAR BEDSIDE. WILL ENDORSE TO ONCOMING SHIFT.
--- NOTE | 2019-12-01 06:57 | NUR ---
RN OPENING NOTE CLINICAL TRIAL PT WAS RECEIVED ASLEEP IN BED AT LOWEST AND LOCKED POSITION WITH SIDE RAILS UP X2, A/O X4 BREATHING EVEN AND UNLABORED ON RA WITH S/S OF ANY DISTRESS OR PAIN, AMBULATORY, NO IV IN PLACE, SAFETY PRECAUTIONS IN PLACE, CALL LIGHT IN REACH, WILL MONITOR ACCORDINGLY
[2019-12-01 08:00] VITALS: BP 107/76
[2019-12-01 16:00] VITALS: BP 121/81
--- NOTE | 2019-12-01 19:07 | NUR ---
RN CLOSING NOTE CLINICAL TRIAL IN BED AT LOWEST AND LOCKED POSITION WITH SIDE RAILS UP X2, A/O X4 BREATHING EVEN AND UNLABORED ON RA WITH S/S OF ANY DISTRESS OR PAIN, AMBULATORY, NO IV IN PLACE, SAFETY PRECAUTIONS IN PLACE, CALL LIGHT IN REACH, ALL NEEDS ATTENDED TO, WILL ENDORSE TO NIGHT RN FOR [place].
[2019-12-01 20:00] VITALS: BP 129/77
--- NOTE | 2019-12-01 20:00 | NUR ---
MS RN NOTES RECEIVED PATIENT AWAKE AND CALM IN BED WITH NO DISTRESS NOTED. CALL LIGHT WITHIN REACH. ROOM FREE OF CLUTTER AND ALL BELONGINGS KEPT NEAR BEDSIDE. BED IN LOW LOCK SETTING. WILL CONTINUE TO MONITOR.
[2019-12-01] MEDS: LORAZEPAM 1 MG TABLET FOR AGITATION PO PRN (21:22)
[2019-12-01] MEDS: [UNRECOGNIZED DRUG - OTHER] PO SCH (21:29)
--- NOTE | 2019-12-02 06:30 | NUR ---
MS RN NOTES PATIENT ASLEEP IN BED WITH NO DISTRESS NOTED. CALL LIGHT WITHIN REACH. NO BEHAVIORAL EPISODES NOTED DURING SHIFT. NO C/O PAIN OR DISCOMFORT. ALL BELONGINGS KEPT NEAR BEDSIDE. BED IN LOW LOCK SETTING. WILL ENDORSE TO ONCOMING SHIFT.
[2019-12-02 08:00] VITALS: BP 119/69
--- NOTE | 2019-12-02 08:00 | NUR ---
RN NOTES RECEIVED PATIENT IN THE ROOM LISTENING MUSIC. PATIENT A/O X3, REDIRECTABLE, REFUSED PAIN, ANXIETY AT THIS TIME, ALSO REFUSED SI/HI. PATIENT AMBULATORY SELF CARE, CALL LIGHT WITHIN TO REACH. CONTINUED MONITORING.
--- NOTE | 2019-12-02 09:00 | NUR ---
RN NOTES PATIENT CONSULTING IT ARCHITECT AT THIS TIME BY DR DESIR OFFICE FOR MORE EVALUATION.
--- NOTE | 2019-12-02 12:00 | NUR ---
RN NOTES PATIENT BACK, STABLE IN THE ROOM EATING LUNCH, SAFETY PRECAUTION MAINTAINED ALL THE TIME.
[2019-12-02 16:00] VITALS: BP 119/74
--- NOTE | 2019-12-02 18:00 | NUR ---
RN NOTES PATIENT IN THE ROOM WATCHING TV, STABLE, REFUSED PAIN, NO ACUTE DISTRESS, REDIRECTABLE, REFUSED SI/HI AT THIS TIME. V/S STABLE. ENDORSED ONCOMING NURSE FOLLOW PLAN OF CARE.
--- NOTE | 2019-12-02 19:55 | NUR ---
MS RN NOTE: PATIENT RESTING IN BED, NO ACUTE DISTRESS NOTED. BREATHING EVEN AND UNLABORED, NO SOB NOTED. PATIENT CALM AND COOPERATIVE. BED LOCKED AND IN LOWEST POSITION, CALL LIGHT IN REACH. WILL CONTINUE TO MONITOR.
[2019-12-02 20:00] VITALS: BP 123/73
[2019-12-02] MEDS: [UNRECOGNIZED DRUG - OTHER] PO SCH (21:43)
[2019-12-02] MEDS: LORAZEPAM 1 MG TABLET FOR AGITATION PO PRN (21:43)
--- NOTE | 2019-12-02 21:45 | NUR ---
MS RN NOTE: PATIENT ANXIOUS AND REQUESTING FROM MEDICATIONS, ATIVAN 1MG ORAL GIVEN PER MD ORDER. WILL CONTINUE TO MONITOR.
--- NOTE | 2019-12-03 06:35 | NUR ---
MS RN NOTE: PATIENT RESTING IN BED, NO ACUTE DISTRESS NOTED. BREATHING EVEN AND UNLABORED, NO SOB NOTED. PATIENT CALM AND COOPERATIVE. BED LOCKED AND IN LOWEST POSITION, CALL LIGHT IN REACH. WILL ENDORSE TO DAY NURSE TO CONTINUE WITH PLAN OF CARE.
[2019-12-03 08:00] VITALS: BP 110/76
[2019-12-03 16:00] VITALS: BP 120/80
--- NOTE | 2019-12-03 19:35 | NUR ---
PATIENT RESTING IN BED, NO ACUTE DISTRESS NOTED. BREATHING EVEN AND UNLABORED, NO SOB NOTED. PATIENT CALM AND COOPERATIVE. BED LOCKED AND IN LOWEST POSITION, CALL LIGHT IN REACH
[2019-12-03 20:12] VITALS: BP 124/79
[2019-12-03] MEDS: LORAZEPAM 1 MG TABLET FOR AGITATION PO PRN (21:47)
[2019-12-03] MEDS: [UNRECOGNIZED DRUG - OTHER] PO SCH (21:47)
[2019-12-04 10:08] VITALS: BP 130/88
[2019-12-04 16:46] VITALS: BP 115/79
[2019-12-04 17:00] VITALS: BP 127/68
--- NOTE | 2019-12-04 20:00 | NUR ---
RN PM OPENING NOTE PATIENT SITTING IN CHAIR, BREATHING EVEN AND UNLABORED, NO SOB NOTED. PATIENT ROCKING IN CHAIR. PATIENT CONVERSES NORMALLY. REVIEWED MEDICATION SCHEDULE FOR TRIAL MEDICATION. PATIENT DENIES SI/HI. PATIENT DENIES HAVING VISUAL OR AUDITORY HALLUCINATIONS. PATIENT ASKED HOW SHE WAS PT STATES "IM DOING ALRIGHT. DONT WORRY ABOUT ME, IF I NEED ANYTHING I WILL LET YOU KNOW. BED LOCKED AND IN LOWEST POSITION, VERBALIZED UNDERSTANDING TO CALL FOR ASSISTANCE IF NEEDED. WILL CONT TO MONITOR.
[2019-12-04] MEDS: [UNRECOGNIZED DRUG - OTHER] PO SCH (21:49)
[2019-12-04] MEDS: LORAZEPAM 1 MG TABLET FOR AGITATION PO PRN (21:50)
[2019-12-04 22:39] VITALS: BP 122/84
--- NOTE | 2019-12-05 06:00 | NUR ---
PATIENT SLEPT MOST OF THE SHIFT. AWAKE ALERT AND ORIENTED X4. PATIENT AMBULATED AND SHOWERED INDEPENDENTLY. DENIES HAVING ANY NEEDS AT THIS TIME. PATIENT COOPERATIVE. PATIENT DENIES HAVING [place] ADVERSE REACTIONS TO MEDICINE. WILL CONT TO MONITOR.
[2019-12-05 08:00] VITALS: BP 123/80
[2019-12-05 16:00] VITALS: BP 120/79
--- NOTE | 2019-12-05 19:00 | NUR ---
MS RN CLOSING NOTES PATIENT RESTING COMFORTABLY IN BED. NO SOB. DENIES ANY C/O PAIN NOR DISCOMFORT AT THIS TIME. ON CLINICAL TRIALS WITHOUT ASE NOTED. DENIES ANY VERBALIZATION OF HALLUCINATION NOR ANY OTHER PROBLEMS AT THIS TIME. CALL LIGHT WITHIN REACH. ABLE TO VERBALIZE NEEDS. IN NO APPARENT DISTRESS.
--- NOTE | 2019-12-05 19:20 | NUR ---
SENIOR OFFICE ASSISTANT: MET WITH PT IN THE ROOM, PT APPEARS PLEASANT, COOPERATIVE, A/O X4, ON RA RESPIRATIONS EVEN AND UNLABORED. DENIES ANY PAIN OR DISCOMFORT. PT DENIES ANY SI/HI, DENIES ANY VISUAL OR AUDITORY HALLUCINATION. DISCUSSED PLAN OF CARE TONIGHT. PT INDEPENDENT WITH ADLS. AWARE OF SMOKING HOURS POLICY. SAFETY PRECAUTIONS FOR FALL INITIATED, CALL LIGHT IN REACH, WILL CONTINUE MONITORING PT.
[2019-12-05 20:00] VITALS: BP 122/71
[2019-12-05] MEDS: [UNRECOGNIZED DRUG - OTHER] PO SCH (21:27)
[2019-12-05] MEDS: LORAZEPAM 1 MG TABLET FOR AGITATION PO PRN (21:27)
--- NOTE | 2019-12-05 21:27 | NUR ---
PRN ATIVAN: PT C/O AGITATION REQUESTING FOR ATIVAN. PRN ATIVAN 1MG TAB PO ADMINISTERED TO PT AT THIS TIME.
--- NOTE | 2019-12-06 06:57 | NUR ---
END OF SHIFT SUMMARY: PT ABLE TO SLEEP WELL LAST NIGHT. PT CONTINUES TO DENY ANY PLANS OF HURTING HERELF, DENIES ANY SI/HI. REMIANS INDEPENDENT WITH ADLS. NO REPORTED AE TO MEDICATIONS. VS REMAINS STABLE, NEEDS ATTENDED. SAFETY PRECAUTIONS FOR FALL REMAINS ENGAGED, CALL LIGHT IN REACH, WILL ENDORSE TO DAY RN FOR CONTINUITY OF CARE.
--- NOTE | 2019-12-06 07:13 | NUR ---
MS RN OPENING NOTES ROUNDS MADE. PATIENT NOT IN ROOM. PATIENT'S PERSONAL BELONGING'S IN ROOM.
--- NOTE | 2019-12-06 07:38 | NUR ---
MS RN NOTES PATIENT STILL NOT IN ROOM. CHECKED SMOKING AREA BUT UNABLE TO FIND PATIENT.
--- NOTE | 2019-12-06 08:55 | NUR ---
MS RN NOTES CALLED MADELINE SARMIENTO AND LEFT MESSAGE [phone]
--- NOTE | 2019-12-06 09:07 | NUR ---
MS RN NOTES CALLED [phone] AND LEFT MESSAGE.
--- NOTE | 2019-12-06 10:00 | NUR ---
MS RN NOTES RECEIVED A CALL FROM PATIENT, PER PATIENT, " I JUST HAVE AN EMERGENCY AND I WILL BE BACK AT 12PM." WHEN ASKED PATIENT WHAT TIME SHE HAD LEFT AND IF AND WHEN SHE HAD NOTIFIED THE NURSE, PATIENT STATED, " I LEFT AT 6 AND I DIDN'T SEE MY NURSE, IT WAS AN EMERGENCY BUT I WILL BE BACK AT 12PM.
--- NOTE | 2019-12-06 10:29 | NUR ---
MS RN NOTES CALLED DR. VIRGEN'S OFFICE OPTION 2 AND LEFT MESSAGE REGARDING PATIENT OUT OF HOSPITAL, PER PATIENT " I JUST HAVE AN EMERGENCY AND WILL BE BACK AT 12PM."
--- NOTE | 2019-12-06 13:32 | NUR ---
MS RN NOTES CALLED PATIENT, PATIENT STATED SHE WILL COME BACK AND HUNG UP THE PHONE.
--- NOTE | 2019-12-06 19:49 | NUR ---
MS RN NOTES PATIENT RETURN TO UNIT IN STABLE CONDITION. LEFT MESSAGE TO DR. VIRGEN.
[2019-12-06 20:00] VITALS: BP 128/77
[2019-12-06] MEDS: [UNRECOGNIZED DRUG - OTHER] PO SCH (22:03)
--- NOTE | 2019-12-07 07:24 | NUR ---
MS RN CLOSING NOTES PATIENT RESTING COMFORTABLY IN BED. NO SOB. DENIES ANY C/O PAIN NOR DISCOMFORT AT THIS TIME. ON CLINICAL TRIALS WITHOUT ASE NOTED. DENIES ANY VERBALIZATION OF HALLUCINATION/SUICIDAL IDEATION/HOMICIDAL IDEATION. CALL LIGHT WITHIN REACH. ABLE TO VERBALIZE NEEDS. IN NO APPARENT DISTRESS.
--- NOTE | 2019-12-07 07:28 | NUR ---
MS RN OPENING NOTES RECEIVED PATIENT SITTING ON CHAIR BY BEDSIDE. A/O X4. ABLE TO MAKE NEEDS KNOWN, DENIES PAIN OR ANY DISCOMFORTS AT THIS TIME. AMBULATORY WITH STEADY GAIT. PT ON CLINICAL TRIALS. CALL LIGHT WITHIN REACH. WILL CONTINUE TO MONITOR.
[2019-12-07 08:00] VITALS: BP 113/71
[2019-12-07 16:00] VITALS: BP 122/72
--- NOTE | 2019-12-07 18:32 | NUR ---
MS RN CLOSING NOTES PT IN HER BED AT THIS TIME WATCHING TV. A/O X4, SAME ABLE TO MAKE NEEDS KNOWN AND AMBULATORY WITH STEADY GAIT. ON CLINICAL TRIALS, NO COMPLICATIONS OBSERVED. DENIES ANY SUICIDAL IDEATION/HALLUCINATIONS. CALL LIGHT WITHIN REACH. NO ACUTE DISTRESS NOTED THROUGHOUT THE DAY. ALL NEEDS AND CARE ATTENDED WELL. WILL ENDORSE TO FURNITURE UPHOLSTERER NURSE FOR RANDOLPH.
[2019-12-07 20:00] VITALS: BP 123/70
--- NOTE | 2019-12-07 20:31 | NUR ---
MS RN NOTE CALLED DR. VIRGEN OPTION 2, LEFT MESSAGE TO INFORM THAT THIS PATIENT JUST INFORMED ME SHE IS LEAVING TOMORROW 7AM - 2PM TO PAY HER RENT IN [place]. CALL BACK NUMBER LEFT.
[2019-12-07 20:43] VITALS: BP 123/70
[2019-12-07] MEDS: [UNRECOGNIZED DRUG - OTHER] PO SCH (21:32)
--- NOTE | 2019-12-07 21:34 | NUR ---
MS RN NOTE ADMINISTERED PRN ATIVAN PER PATIENT REQUEST. WILL CONTINUE TO MONITOR.
--- NOTE | 2019-12-08 06:18 | NUR ---
MS RN CLOSING NOTE PATIENT IN BED. A/O X4. REMAINS TOLERATING ROOM AIR. RR EVEN AND UNLABORED. NO SOB NOTED. DENIES PAIN. REMAINS WITH NO IV ACCESS. NO DISTRESS THROUGHOUT SHIFT. BED REMAINS LOW AND LOCKED, HOB FLAT, SIDE RAILS UP X2, CALL LIGHT WITHIN REACH. NO SIGNIFICANT MOOD/BEHAVIORAL CHANGES NOTED.PATIENT STILL PLANS TO LEAVE UNIT TO PAY HER RENT, WILL INFORM HER WE NEED TO WAIT FOR AN ORDER AND DOCUMENTATION. WILL ENDORSE TO NEXT SHIFT.
--- NOTE | 2019-12-08 06:45 | NUR ---
MS RN NOTE DID NOT RECEIVE A CALL BACK FROM DR. VIRGEN. CALLED DR. DESIR OFFICE AGAIN AT THIS TIME. OPTION #2, LEFT MESSAGE, INFORMING PATIENT IS INSISTENT ON LEAVING AT 7AM - 2PM FOR PAY HER RENT IN [place]. AWAITING HIS CALL, WILL INFORM NEXT SHIFT.
--- NOTE | 2019-12-08 07:30 | NUR ---
MS RN NOTES PATIENT LEFT HOSPITAL STATING SHE NEEDS TO LEAVE AND PAY HER RENT. DESPITE EXPLANATION OF THE RISK FOR HER CLINICAL TRIAL, SHE STATES SHE IS LEAVING NO MATTER WHAT. DR. DESIR OFFICE MADE AWARE SPOKE TO [facility] STATES IF AND WHEN SHE COMES BACK TO NOTIFY HIM.
--- NOTE | 2019-12-08 09:52 | NUR ---
MS RN NOTES CALL RECEIVED FROM EVERETT FOR DR. DESIR OFFICE STATING PATIENT IS WITH A STAFF MEMBER FROM HIS OFFICE AND IS ALLOWED TO LEAVE. WILL RETURN SOON.
--- NOTE | 2019-12-08 13:57 | NUR ---
MS RN NOTES PATIENT RETURNED TO HER BED WITH DR. DESIR EMPLOYEE IN STABLE CONDITION.
[2019-12-08 16:00] VITALS: BP 128/82
[2019-12-08] MEDS ORDERED: IBUPROFEN 600 MG TABLET PO PRN (19:00)
[2019-12-08 20:00] VITALS: BP 128/83
[2019-12-08 20:26] VITALS: BP 128/83
[2019-12-08 20:28] VITALS: BP 128/83
[2019-12-08] MEDS: [UNRECOGNIZED DRUG - OTHER] PO SCH (21:12)
[2019-12-08] MEDS: LORAZEPAM 1 MG TABLET FOR AGITATION PO PRN (21:12)
--- NOTE | 2019-12-08 21:13 | NUR ---
MS RN NOTE ADMINISTERED PRN ATIVAN 1MG PER PATIENT REQUEST. WILL CONTINUE TO MONITOR.
--- NOTE | 2019-12-09 07:30 | NUR ---
MS/RN Opening note Patient received from power and recovery shift engineer. A/O X4, vital signs stable, denies any pain or discomfort at this time. Time allowed for all fears and concerns to be addressed. Safety measures in place. Will continue to monitor and ensure safety.
[2019-12-09 08:00] VITALS: BP 121/79
[2019-12-09 08:07] VITALS: BP 121/79
[2019-12-09 08:30] VITALS: BP 120/56
--- NOTE | 2019-12-09 09:00 | NUR ---
MS/RN Off unit Patient taken off unit by staff from Dr Gudino office.
--- NOTE | 2019-12-09 11:00 | NUR ---
MS/RN Back to unit Patient brought back to unit by staff from Dr Gudino office following appointment.
[2019-12-09 16:00] VITALS: BP 118/76
--- NOTE | 2019-12-09 18:19 | NUR ---
MS/RN End note Denies any auditory or visual hallucinations. Will endorse to fast food shift supervisor.
--- NOTE | 2019-12-09 19:14 | NUR ---
RN OPENING NOTES RECEIVED PATIENT FROM AM RN. PATIENT AWAKE, A/O X 4. TOLERATING ROOM AIR. PATIENT ABLE TO VERBALIZE NEEDS. BREATHING EVEN AND UNLABORED, NO RESPIRATORY DISTRESS, NO SOB NOTED. NO COMPLAINTS OF PAIN OR DISCOMFORT AT THIS TIME. SAFETY PRECAUTIONS IMPLEMENTED; CALL LIGHT WITHIN REACH, BED LOW, BED LOCKED, BILATERAL UPPER SIDE RAILS UP. WILL CONTINUE TO MONITOR.
[2019-12-09 20:00] VITALS: BP 125/86
[2019-12-09] MEDS: LORAZEPAM 1 MG TABLET FOR AGITATION PO PRN (21:35)
[2019-12-09] MEDS: [UNRECOGNIZED DRUG - OTHER] PO SCH (21:35)
--- NOTE | 2019-12-10 06:26 | NUR ---
RN CLOSING NOTES PATIENT IS CURRENTLY AWAKE. A/O X 4. NO SIGNS OF RESPIRATORY DISTRESS, NO SHORTNESS OF BREATH NOTED, RESPIRATIONS EVEN AND UNLABORED. NO SIGNS OF FACIAL GRIMACING INDICATING PAIN OR DISCOMFORT AT THIS TIME. ALL NEEDS MET ON SHIFT. ALL DUE MEDS GIVEN ORDERED WITH NO ADVERSE EFFECTS. NO SIGNIFICANT MOOD/BEHAVIORAL CHANGES NOTED. SAFETY PRECAUTIONS IMPLEMENTED; CALL LIGHT WITHIN REACH, BED LOW, BED LOCKED, BILATERAL UPPER SIDE RAILS UP. BELONGINGS REMAIN AT BED SIDE. WILL ENDORSE TO DAY SHIFT NURSE FOR CONTINUITY OF CARE.
--- NOTE | 2019-12-10 07:13 | NUR ---
MS RN OPENING NOTES RECEIVED PATIENT AWAKE IN BED IN NO ACUTE SIGN SOF DISTRESS. A/O X4. ABLE TO MAKE NEEDS KNOWN, DENIES PAIN OR ANY DISCOMFORTS AT THIS TIME. AMBULATORY WITH STEADY GAIT. ON ROOM AIR, BREATHING EVEN AND UNLABORED. PT ON CLINICAL TRIALS. CALL LIGHT WITHIN REACH. WILL CONTINUE TO MONITOR.
[2019-12-10 07:30] VITALS: BP 132/93
[2019-12-10 16:00] VITALS: BP 115/72
--- NOTE | 2019-12-10 18:35 | NUR ---
MS RN CLOSING NOTES PT IN HER ROOM WATCHING TV. A/O X4, SAME ABLE TO MAKE NEEDS KNOWN. AMBULATORY WITH STEADY GAIT. ON CLINICAL TRIALS, NO INAPPROPRIATE BEHAVIOR NOTED. DENIES ANY SUICIDAL IDEATION/HALLUCINATIONS. CALL LIGHT WITHIN REACH. ON ROOM AIR, NO ACUTE DISTRESS NOTED THROUGHOUT THE DAY. ALL NEEDS AND CARE ATTENDED WELL. WILL ENDORSE TO BOXING INSTRUCTOR NURSE FOR RANDOLPH.
--- NOTE | 2019-12-10 19:33 | NUR ---
RN MS OPENING NOTES RECEIVED PATIENT IN BED AWAKE, ALERT AND ORIENTED X4, VERBALLY RESPONSIVE, ABLE TO MAKE NEEDS KNOWN. BREATHING EVEN AND UNLABORED. TOLERATING ROOM AIR. DENIES PAIN OR DISCOMFORT. DENIES N/V. NO IV DUE TO CLINICAL TRIAL. PATIENT IS INDEPENDENT WITH ADLS. AMBULATORY WITH A STEADY GAIT. ALL OTHER NEEDS ATTENDED TO, SAFETY MEASURES IN PLACE, CALL LIGHT WITHIN REACH. WILL CONTINUE TO MONITOR.
[2019-12-10 20:00] VITALS: BP 114/73
[2019-12-10] MEDS: LORAZEPAM 1 MG TABLET FOR AGITATION PO PRN (21:35)
[2019-12-10] MEDS: [UNRECOGNIZED DRUG - OTHER] PO SCH (21:35)
--- NOTE | 2019-12-11 07:02 | NUR ---
RN MS CLOSING NOTES NO ACUTE CHANGES THROUGHOUT SHIFT. BREATHING EVEN AND UNLABORED. TOLERATING ROOM AIR. DENIES PAIN OR DISCOMFORT. DENIES N/V. NO IV DUE TO CLINICAL TRIAL. NO SI/HI IDEATION. PATIENT IS INDEPENDENT WITH ADLS. AMBULATORY WITH A STEADY GAIT. ALL OTHER NEEDS ATTENDED TO, SAFETY MEASURES IN PLACE, CALL LIGHT WITHIN REACH. WILL ENDORSE TO ONCOMING NURSE FOR RANDOLPH.
--- NOTE | 2019-12-11 07:12 | NUR ---
MS RN OPENING NOTES RECEIVED PATIENT IN HER ROOM AWAKE AND SITTING ON CHAIR BY BEDSIDE. A/O X4. ABLE TO MAKE NEEDS KNOWN, DENIES PAIN OR ANY DISCOMFORTS AT THIS TIME. AMBULATORY WITH STEADY GAIT. ON ROOM AIR, BREATHING EVEN AND UNLABORED. PT ON CLINICAL TRIALS. CALL LIGHT WITHIN REACH. WILL CONTINUE TO MONITOR
[2019-12-11 08:00] VITALS: BP 107/69
[2019-12-11 15:59] VITALS: BP 120/73
--- NOTE | 2019-12-11 18:41 | NUR ---
MS RN CLOSING NOTES PT RESTING IN BED AT THIS TIME WATCHING TV. A/O X4, SAME ABLE TO MAKE NEEDS KNOWN. AMBULATORY WITH STEADY GAIT. ON CLINICAL TRIALS, NO INAPPROPRIATE BEHAVIOR NOTED. DENIES ANY SUICIDAL IDEATION/HALLUCINATIONS. CALL LIGHT WITHIN REACH. ON ROOM AIR, NO ACUTE DISTRESS NOTED THROUGHOUT THE DAY. ALL NEEDS AND CARE ATTENDED WELL. WILL ENDORSE TO MULTIMEDIA COORDINATOR NURSE FOR RANDOLPH.
[2019-12-11 20:00] VITALS: BP 114/70
[2019-12-11] MEDS: [UNRECOGNIZED DRUG - OTHER] PO SCH (21:55)
[2019-12-11] MEDS: LORAZEPAM 1 MG TABLET FOR AGITATION PO PRN (21:55)
--- NOTE | 2019-12-11 21:55 | NUR ---
RN NOTES PT. REQUEST FOR ATIVAN, ATIVAN 1 MG PO GIVEN ORDERED, V/S STABLE
--- NOTE | 2019-12-12 07:10 | NUR ---
MS RN OPENING NOTES RECEIVED PATIENT ALERT AND AWAKE ORIENTED X4. SITTING IN ROOM. NO SOB. DENIES ANY C/O PAIN NOR DISCOMFORT AT THIS TIME. ON CLINICAL TRIALS. CALL LIGHT WITHIN REACH. ABLE TO VERBALIZE NEEDS.
[2019-12-12 07:30] VITALS: BP 124/74
--- NOTE | 2019-12-12 18:45 | NUR ---
MS RN CLOSING NOTES PATIENT AMBULATING IN HALLWAY. NO SOB. DENIES ANY C/O PAIN NOR DISCOMFORT AT THIS TIME. ON CLINICAL TRIALS WITHOUT ASE NOTED. DENIES ANY VERBALIZATION OF HALLUCINATION/SUICIDAL IDEATION/HOMICIDAL IDEATION. CALL LIGHT WITHIN REACH. ABLE TO VERBALIZE NEEDS. IN NO APPARENT DISTRESS.
--- NOTE | 2019-12-12 18:55 | NUR ---
MS RN NOTES SPOKE TO DR. VIRGEN REGARDING PATIENT GOING OUT TO SMOKE PER MD, OK TO SMOKE BY HERSELF.
--- NOTE | 2019-12-12 19:58 | NUR ---
RN NOTES RECEIVED PATIENT SITTING IN HER BED, NO SOB. DENIES ANY PAIN OR DISCOMFORT AT THIS TIME. ON CLINICAL TRIALS, DENIES ANY VERBALIZATION OF HALLUCINATION/SUICIDAL IDEATION/HOMICIDAL IDEATION. CALL LIGHT WITHIN REACH.SAFETY MEASURES IN PLACE, ABLE TO VERBALIZE NEEDS. IN NO APPARENT DISTRESS NOTED. WILL CONTINUE TO MONITOR ACCORDINGLY.
[2019-12-12 20:00] VITALS: BP 124/78
[2019-12-12] MEDS: [UNRECOGNIZED DRUG - OTHER] PO SCH (21:31)
[2019-12-12] MEDS: LORAZEPAM 1 MG TABLET FOR AGITATION PO PRN (21:31)
--- NOTE | 2019-12-13 06:26 | NUR ---
RN NOTES ALL NEEDS ATTENDED AND MET, ABLE TO REST AND SLEPT AT INTERVALS, NO SOB. DENIES ANY PAIN OR DISCOMFORT AT THIS TIME. ON CLINICAL TRIALS, DENIES ANY VERBALIZATION OF HALLUCINATION/SUICIDAL IDEATION/HOMICIDAL IDEATION. CALL LIGHT WITHIN REACH.SAFETY MEASURES IN PLACE, ABLE TO VERBALIZE NEEDS. IN NO APPARENT DISTRESS NOTED. WILL ENDORSE TO AM NURSE FOR CONTINUITY OF CARE.
--- NOTE | 2019-12-13 07:30 | NUR ---
MS/RN Patient received Patient received from operation shift supervisor. A/O X4, vital signs within normal range for patient. Denies any pain or discomfort. Call light within reach, will continue to monitor and ensure safety.
[2019-12-13 08:00] VITALS: BP 125/90
--- NOTE | 2019-12-13 12:00 | NUR ---
MS/RN Behavior Compliant with plan of care, denies any visual or auditory hallucinations.
[2019-12-13 16:00] VITALS: BP 117/81
--- NOTE | 2019-12-13 18:24 | NUR ---
MS/RN End note Patient remains in stable condition, no behavior concerns. Will endorse to [employer].
--- NOTE | 2019-12-13 19:10 | NUR ---
MS RN NOTES RECEIVED PT IN BED AWAKE AND ABLE TO MAKE NEEDS KNOWN. PT A/O X3. RESPIRATIONS EVEN AND UNLABORED WITH NO S/S OF ACUTE DISTRESS OR SOB NOTED. NO COMPLAINTS OF PAIN AT THIS TIME. SAFETY MEASURES IN PLACE WITH BED IN LOWEST LOCKED POSITION WITH SIDE RAILS UP X 2. CALL LIGHT WITHIN EACH . WILL CONTINUE TO MONITOR.
[2019-12-13 20:00] VITALS: BP 118/81
[2019-12-13] MEDS: LORAZEPAM 1 MG TABLET FOR AGITATION PO PRN (21:12)
[2019-12-13] MEDS: [UNRECOGNIZED DRUG - OTHER] PO SCH (21:12)
--- NOTE | 2019-12-14 07:57 | NUR ---
MS RN NOTES RECEIVED PT IN BED AWAKE AND ABLE TO MAKE NEEDS KNOWN. PT A/O X3. RESPIRATIONS EVEN AND UNLABORED WITH NO S/S OF ACUTE DISTRESS OR SOB NOTED THROUGHOUT SHIFT. NO COMPLAINTS OF PAIN AT THIS TIME. SAFETY MEASURES IN PLACE WITH BED IN LOWEST LOCKED POSITION WITH SIDE RAILS UP X 2. CALL LIGHT WITHIN EACH . WILL ENDORSE TO ONCOMING NURSE FOR RANDOLPH.
[2019-12-14 08:00] VITALS: BP 116/71
--- NOTE | 2019-12-14 08:00 | NUR ---
rn notes received patient in the room eating, stable, no acute respiratory distress,no v/s wnl. refused si/hi at his time, calm cooperative, patient ambulatory self care. Encouraged to express feelings and concerns, call light within to reach, safety precaution maintained all the time.
[2019-12-14 16:00] VITALS: BP 121/75
--- NOTE | 2019-12-14 18:00 | NUR ---
RN NOTES PATIENT BACK FROM SMOKING, STABLE, REFUSED ANXIETY. REDIRECTABLE, SELF CARE. REFUSED SI/HI AT THIS TIME. PATIENT AMBULATORY SELF CARE. ENDORSED ONCOMING NURSE FOLLOW PLAN OF CARE.
--- NOTE | 2019-12-14 19:15 | NUR ---
MS RN OPENING NOTES Received patient, awake on bed. On RA, no SOB/respiratory distress noted, no s/sx of discomfort noted at this time. Kept on bed clean, dry and comfortable. On fall and aspiration precautions. Call light within easy reach. Will continue to monitor accordingly.
[2019-12-14 20:00] VITALS: BP 119/80
[2019-12-14 20:44] VITALS: BP 119/80
[2019-12-14] MEDS: [UNRECOGNIZED DRUG - OTHER] PO SCH (21:20)
--- NOTE | 2019-12-15 06:56 | NUR ---
MS RN CLOSING NOTES Patient asleep on Valenzuela's position on bed. On RA, no SOB/respiratory distress noted. No new complaints made. All nursing needs attended, due meds given as ordered. Kept on bed clean, dry and comfortable. Call light within easy reach. On fall and aspiration precautions. Endorsed.
[2019-12-15 08:00] VITALS: BP 118/79
--- NOTE | 2019-12-15 08:00 | NUR ---
RN NOTES Received patient in the room eating, stable, no acute respiratory distress,no v/s wnl. refused si/hi at his time, calm cooperative, patient ambulatory self care. Encouraged to express feelings and concerns, call light within to reach, safety precaution maintained all the time.
[2019-12-15 16:00] VITALS: BP_SYST 123; BP_SYST 128; BP_DIAS 72; BP_DIAS 85
--- NOTE | 2019-12-15 18:00 | NUR ---
RN NOTES patient in the room, no acute distress, v/s wnl. refused si/hi at his time, calm cooperative, patient ambulatory self care. Encouraged to express feelings and concerns, call light within to reach, safety precaution maintained all the time.
--- NOTE | 2019-12-15 19:40 | NUR ---
RN NOTES RECEIVED PATIENT AWAKE, SITTING IN HER BED, NO SOB. DENIES ANY PAIN OR DISCOMFORT AT THIS TIME. ON CLINICAL TRIALS, DENIES ANY VERBALIZATION OF HALLUCINATION/SUICIDAL IDEATION/HOMICIDAL IDEATION. CALL LIGHT WITHIN REACH.SAFETY MEASURES IN PLACE, ABLE TO VERBALIZE NEEDS. IN NO APPARENT DISTRESS NOTED. WILL CONTINUE TO MONITOR ACCORDINGLY.
[2019-12-15 20:25] VITALS: BP 121/75
[2019-12-15] MEDS: [UNRECOGNIZED DRUG - OTHER] PO SCH (21:25)
[2019-12-15] MEDS: LORAZEPAM 1 MG TABLET FOR AGITATION PO PRN (21:25)
[2019-12-16 04:25] VITALS: BP 123/75
--- NOTE | 2019-12-16 06:29 | NUR ---
RN NOTES ALL NEEDS ATTENDED AND MET, ABLE TO REST AND SLEPT WITH LONG INTERVALS, PATIENT AWAKE AT THIS TIME, NO SOB. DENIES ANY PAIN OR DISCOMFORT AT THIS TIME. ON CLINICAL TRIALS, DENIES ANY VERBALIZATION OF HALLUCINATION/SUICIDAL IDEATION/HOMICIDAL IDEATION. CALL LIGHT WITHIN REACH.SAFETY MEASURES IN PLACE, ABLE TO VERBALIZE NEEDS. IN NO APPARENT DISTRESS NOTED. WILL ENDORSE TO AM NURSE FOR CONTINUITY OF CARE.
[2019-12-16 08:00] VITALS: BP 119/77
--- NOTE | 2019-12-16 08:00 | NUR ---
RN NOTES Received patient in the room stable, no acute respiratory distress,no v/s wnl. refused si/hi at his time, calm cooperative, patient ambulatory self care. Encouraged to express feelings and concerns, call light within to reach, safety precaution maintained all the time.
[2019-12-16 08:37] VITALS: BP 119/77
[2019-12-16 16:00] VITALS: BP 133/93
--- NOTE | 2019-12-16 18:00 | NUR ---
RN NOTES PATIENT IN THE ROOM, STABLE REFUSED SI/HI AT THIS TIME, COOPERATIVE, REDIRECTABLE. CALL LIGHT WITHIN TO REACH. ENDORSED ONCOMING NURSE FOLLOW PLAN OF CARE.
--- NOTE | 2019-12-16 19:30 | NUR ---
RN OPEN NOTES RECEIVED PATIENT AWAKE SITTING IN CHAIR. A/OX4. NO SIGNS OF DISTRESS OR DISCOMFORT. BREATHING EVEN AND UNLABORED. DENIES SI/HI. BED IN LOW LOCKED POSITION WITH SIDE RAILS X2. CALL LIGHT WITHIN REACH. WILL CONTINUE TO MONITOR.
[2019-12-16 20:00] VITALS: BP_SYST 131; BP_SYST 153; BP_DIAS 80; BP_DIAS 85
[2019-12-16] MEDS: [UNRECOGNIZED DRUG - OTHER] PO SCH (21:37)
[2019-12-16] MEDS: LORAZEPAM 1 MG TABLET FOR AGITATION PO PRN (21:38)
--- NOTE | 2019-12-17 07:00 | NUR ---
RN CLOSING NOTES PATIENT RESTING IN BED, EASILY AROUSABLE. A/OX4. NO SIGNS OF DISTRESS OR DISCOMFORT. BREATHING EVEN AND UNLABORED. DENIES SI/HI AT THIS TIME. ALL NEEDS MET. NO SIGNIFICANT CHANGES THROUGH THE NIGHT. PATIENT SLEPT APPROX 7 HRS. BED IN LOW LOCKED POSITION WITH SIDE RAILS X2. CALL LIGHT WITHIN REACH. WILL ENDORSE TO AM SHIFT FOR RANDOLPH
--- NOTE | 2019-12-17 07:30 | NUR ---
MS/CT RN OPENING NOTES RECEIVED PT IN BED, ASLEEP, EASILY AROUSED, A/O 4. CLINICAL TRIAL PT. PT TOLERATING RA, WITH NO ACUTE RESPIRATORY DISTRESS. PT DENIES ANY PAIN OR DISCOMFORT AT THIS TIME. ALSO DENIES ANY CONCERN OR QUESTIONS AT THE MOMENT. NO IV ACCESS. PT KEPT COMFORTABLE IN BED. CALL LIGHT KEPT WITHIN REACH. PT'S BED IN LOWEST, LOCKED POSITION WITH SR X3.
[2019-12-17 08:00] VITALS: BP 107/66
[2019-12-17 16:00] VITALS: BP 110/62
--- NOTE | 2019-12-17 18:43 | NUR ---
MS/CT RN CLOSING NOTES PT REMAINS IN BED, AWAKE, A/O 4. CLINICAL TRIAL PT. PT TOLERATING RA, WITH NO ACUTE RESPIRATORY DISTRESS. PT DENIES ANY PAIN OR DISCOMFORT AT THIS TIME. ALSO DENIES ANY CONCERN OR QUESTIONS AT THE MOMENT. NO IV ACCESS. PT KEPT COMFORTABLE IN BED. ALL NEEDS AND CARE ATTENDED. CALL LIGHT KEPT WITHIN REACH. PT'S BED IN LOWEST, LOCKED POSITION WITH SR X3. WILL ENDORSE TO INCOMING NURSE FOR RANDOLPH.
[2019-12-17 20:00] VITALS: BP 112/68
[2019-12-17] MEDS: [UNRECOGNIZED DRUG - OTHER] PO SCH (21:23)
[2019-12-17] MEDS: LORAZEPAM 1 MG TABLET FOR AGITATION PO PRN (21:23)
--- NOTE | 2019-12-18 06:35 | NUR ---
MS RN NOTES AWAKE & RESPONSIVE. NOT IN ANY DISTRESS. NO SOB NOTED. DENIES ANY PAIN OR DISCOMFORT AT THIS TIME. MONITORED ACCORDINGLY. SLEPT FOR 8 HOURS. CALL LIGHT WITHIN REACH. BED IN LOWEST POSITION. SR UP X 2 ON FOR SAFETY. WILL ENDORSE TO NEXT SHIFT.
--- NOTE | 2019-12-18 07:15 | NUR ---
RN OPENING NOTES RECEIVED PATIENT AWAKE SITTING IN CHAIR. A/OX4. NO SIGNS OF DISTRESS OR DISCOMFORT. BREATHING EVEN AND UNLABORED. DENIES SI/HI. BED IN LOW LOCKED POSITION WITH SIDE RAILS X2. CALL LIGHT WITHIN REACH. WILL CONTINUE TO MONITOR ACCORDINGLY.
[2019-12-18 08:00] VITALS: BP 124/72
[2019-12-18 16:00] VITALS: BP 129/88
--- NOTE | 2019-12-18 19:20 | NUR ---
RN CLOSING NOTES PATIENT IN STABLE CONDITION. ALL NEEDS ATTENDED AND PROVIDED. ALL DUE MEDS GIVEN ORDERED. KEPT PATIENT SAFE AND COMFORTABLE. BED IN LOW,LOCKED POSITION. SIDERAILS UPX2, CALL LIGHT IN REACH. ENDORSED ACCORDINGLY
--- NOTE | 2019-12-18 19:55 | NUR ---
RN OPENING NOTES RECEIVED REPORT FROM DAYSHIFT FELIZ LIND. FOUND Pt AWAKE, SITTING UP IN CHAIR, WATCHING TV. NO S/S OF ACUTE DISTRESS OR SOB NOTED. Pt IS A/OX4, VERBAL AND ABLE TO MAKE NEEDS KNOWN. ON CLINICAL TRIAL. SAFETY MEASURES IN PLACE. CALL LIGHT AND BEDSIDE TABLE WITHIN REACH. WILL CONTINUE TO MONITOR Pt's CONDITION AND SAFETY THROUGHOUT THE NIGHT.
[2019-12-18 20:00] VITALS: BP 131/85
--- NOTE | 2019-12-18 20:00 | NUR ---
RN NOTES Pt REQUESTED FOR HER ATIVAN TO BE GIVEN TONIGHT LATER AT 0.
[2019-12-18] MEDS: LORAZEPAM 1 MG TABLET FOR AGITATION PO PRN (21:29)
[2019-12-18] MEDS: [UNRECOGNIZED DRUG - OTHER] PO SCH (21:29)
--- NOTE | 2019-12-19 07:15 | NUR ---
M/S RN NOTES PATIENT AWAKE IN BED, NO RESPIRATORY DISTRESS, NO C/O PAIN AT THIS TIME. SKIN WARM TO TOUCH, NO IV SITE. PATIENT'S NEEDS ATTENDED, BED ON LOWEST LOCKED POSITION, CALL LIGHT WITHIN REACH. WILL CONTINUE TO MONITOR.
--- NOTE | 2019-12-19 07:56 | NUR ---
RN CLOSING NOTES NO SIGNIFICANT CHANGES IN Pt's CONDITION. NO S/S OF ACUTE DISTRESS OR SOB NOTED DURING THE NIGHT. NO BEHAVIORAL PROBLEMS DURING THE SHIFT. ALL NEEDS MET AND ATTENDED TO. SAFETY MEASURES IN PLACE. ENDORSED TO DAYSHIFT RN FOR Pt's RANDOLPH.
[2019-12-19 08:00] VITALS: BP 122/78
[2019-12-19 16:00] VITALS: BP 123/83
--- NOTE | 2019-12-19 18:38 | NUR ---
M/S RN NOTES PATIENT AWAKE IN ROOM, NO SIGNIFICANT CHANGE IN CONDITION. PATIENT IN NO ACUTE DISTRESS, DENIES ANY DISCOMFORT OR PAIN AT THIS TIME. PATIENT'S NEEDS ATTENDED, BED ON LOWEST LOCKED POSITION, CALL LIGHT WITHIN REACH. WILL ENDORSE TO ONCOMING NURSE.
[2019-12-19 20:15] VITALS: BP 139/92
--- NOTE | 2019-12-19 20:20 | NUR ---
RN OPENING NOTES RECEIVED REPORT FROM DAYSHIFT RN EVAN. FOUND Pt AWAKE, SITTING IN CHAIR, WATCHING TV. NO S/S OF ACUTE DISTRESS OR SOB NOTED. NO C/O PAIN AT THIS TIME. NO C/O BEHAVIORAL ISSUES DURING THE DAY. Pt IS A/OX4, VERBAL, ABLE TO MAKE NEEDS KNOWN. NO IV ACCESS DUE TO CLINICAL TRIAL PROTOCOL. SAFETY MEASURES IN PLACE. CALL LIGHT AND BEDSIDE TABLE WITHIN REACH. WILL CONTINUE TO MONITOR Pt's CONDITION AND SAFETY THROUGHOUT THE NIGHT.
[2019-12-19] MEDS: LORAZEPAM 1 MG TABLET FOR AGITATION PO PRN (22:06)
[2019-12-19] MEDS: [UNRECOGNIZED DRUG - OTHER] PO SCH (22:06)
--- NOTE | 2019-12-20 07:00 | NUR ---
RN CLOSING NOTES NO SIGNIFICANT CHANGES IN Pt's CONDITION. NO S/S OF ACUTE DISTRESS OR SOB NOTED DURING THE NIGHT. NO BEHAVIORAL PROBLEMS DURING THE SHIFT. ALL NEEDS MET AND ATTENDED TO. SAFETY MEASURES IN PLACE. WILL ENDORSE TO DAYSHIFT RN FOR Pt's RANDOLPH.
--- NOTE | 2019-12-20 07:25 | NUR ---
M/S RN NOTES PATIENT AWAKE IN BED, WATCHING TV. NO ACUTE DISTRESS, NO C/O PAIN AT THIS TIME. SKIN WARM TO TOUCH, DENIES HAVING SI/HI AT THIS TIME. PATIENT'S NEEDS ATTENDED, BED ON LOWEST LOCKED POSITION, CALL LIGHT WITHIN REACH. WILL CONTINUE TO MONITOR.
[2019-12-20 16:00] VITALS: BP 113/80
--- NOTE | 2019-12-20 18:58 | NUR ---
M/S RN NOTES PATIENT AWAKE WATCHING TV, NO RESPIRATORY DISTRESS, NO SIGNIFICANT CHANGES IN CONDITION. PATIENT'S NEEDS ATTENDED, BED ON LOWEST LOCKED POSITION, CALL LIGHT WITHIN REACH. WILL ENDORSE TO ONCOMING NURSE.
--- NOTE | 2019-12-20 19:47 | NUR ---
RECEIVE PT IN CHAIR A/O X 4 STABLE WATCHING TV NO C/O PAIN, SAFETY MEASURES IN PLACE. WILL CONTINUE TO MONITOR
[2019-12-20 20:00] VITALS: BP 128/78
[2019-12-20] MEDS: LORAZEPAM 1 MG TABLET FOR AGITATION PO PRN (21:19)
[2019-12-20] MEDS: [UNRECOGNIZED DRUG - OTHER] PO SCH (21:19)
--- NOTE | 2019-12-21 06:37 | NUR ---
PT SLEPT WELL, STABLE. NO S/S OF DISTRESS, NEEDS ATTENDED AND ANTICIPATED, KEPT CLEAN, DRY AND COMFORTABLE. NO PSYCH INSTABILITY. SAFETY MEASURES AT ALL TIMES. ENDORSE TO NEXT SHIFT POC.
--- NOTE | 2019-12-21 07:39 | NUR ---
MS RN OPENING NOTE PATIENT IN BED RESTING COMFORTABLY. PATIENT IN NO ACUTE DISTRESS. NO SOB NOTED. PATIENT BREATHING IS EVEN AND UNLABORED. PATIENT IN NO PAIN AT THIS TIME. PATIENT SAFETY PRECAUTIONS IN PLACE. PATIENT BED IS LOCKED AND IN LOWEST POSITION. CALL LIGHT WITHIN REACH. WILL CONTINUE TO MONITOR.
[2019-12-21 08:00] VITALS: BP 121/78
[2019-12-21 16:00] VITALS: BP 145/95
--- NOTE | 2019-12-21 19:38 | NUR ---
MS RN CLOSING NOTE PATIENT IN BED RESTING COMFORTABLY. PATIENT IN NO ACUTE DISTRESS. NO SOB NOTED. PATIENT BREATHING IS EVEN AND UNLABORED. PATIENT IN NO PAIN AT THIS TIME. NEEDS AND CONCERNS ADDRESSED. PATIENT SAFETY PRECAUTIONS IN PLACE. PATIENT BED IS LOCKED AND IN LOWEST POSITION. CALL LIGHT WITHIN REACH. WILL ENDORSE CARE TO PM SHIFT FOR [place].
[2019-12-21 20:00] VITALS: BP 136/90
[2019-12-21 20:22] VITALS: BP 136/90
[2019-12-21] MEDS: LORAZEPAM 1 MG TABLET FOR AGITATION PO PRN (21:11)
[2019-12-21] MEDS: [UNRECOGNIZED DRUG - OTHER] PO SCH (21:11)
--- NOTE | 2019-12-21 21:11 | NUR ---
MS RN NOTE ADMINISTERED PRN ATIVAN 1MG PER PATIENT REQUEST. WILL CONTINUE TO MONITOR.
--- NOTE | 2019-12-22 07:29 | NUR ---
MS RN OPENING NOTES PATIENT RECEIVED AWAKE IN BED IN NO ACUTE SIGNS OF DISTRESS. A/O X4. ABLE TO MAKE NEEDS KNOWN, DENIES PAIN OR ANY DISCOMFORTS AT THIS TIME. ON ROOM AIR, BREATHING EVEN AND UNLABORED. SAFETY PRECAUTIONS IN PLACE: BED IS LOCKED AND IN LOWEST POSITION. CALL LIGHT WITHIN REACH. WILL CONTINUE TO MONITOR.
[2019-12-22 08:00] VITALS: BP 132/85
[2019-12-22 16:00] VITALS: BP 111/71
--- NOTE | 2019-12-22 18:45 | NUR ---
MS RN CLOSING NOTES PATIENT RESTING IN HER BED WATCHING TV AT THIS TIME. A/O X4. ABLE TO MAKE NEEDS KNOWN. ON CLINICAL TRIAL, NO INAPPROPRIATE BEHAVIOR NOTED DURING THE DAY. DENIES ANY SI/HI. CALL LIGHT WITHIN REACH. ON ROOM AIR, TOLERATING WELL WITH NO ACUTE DISTRESS NOTED THROUGHOUT THE DAY. PT IS AMBULATORY WITH STEADY GAIT. ALL NEEDS AND CARE ATTENDED WELL. WILL ENDORSE TO BAND MASTER NURSE FOR RANDOLPH.
--- NOTE | 2019-12-22 19:20 | NUR ---
RN OPEN NOTES RECEIVED PATIENT AWAKE LAYING IN BED. A/OX4. NO SIGNS OF DISTRESS OR DISCOMFORT. BREATHING EVEN AND UNLABORED. DENIES SI/HI. BED IN LOW LOCKED POSITION WITH SIDE RAILS X2. CALL LIGHT WITHIN REACH. WILL CONTINUE TO MONITOR.
[2019-12-22 20:49] VITALS: BP 131/77
[2019-12-22] MEDS: [UNRECOGNIZED DRUG - OTHER] PO SCH (21:32)
[2019-12-22] MEDS: LORAZEPAM 1 MG TABLET FOR AGITATION PO PRN (21:32)
[2019-12-23 08:00] VITALS: BP 109/64
[2019-12-23 08:59] VITALS: BP 109/64
[2019-12-23 16:18] VITALS: BP 134/79
--- NOTE | 2019-12-23 19:12 | NUR ---
PATIENT IN BED RESTING COMFORTABLY. PATIENT IN NO ACUTE DISTRESS. NO SOB NOTED. PATIENT BREATHING IS EVEN AND UNLABORED. NEEDS AND CONCERNS ADDRESSED. PATIENT SAFETY PRECAUTIONS IN PLACE. PATIENT BED IS LOCKED AND IN LOWEST POSITION. CALL LIGHT WITHIN REACH. WILL ENDORSE CARE TO NEXT SHIFT FOR RANDOLPH.
[2019-12-23 21:04] VITALS: BP 120/71
[2019-12-23] MEDS: LORAZEPAM 1 MG TABLET FOR AGITATION PO PRN (21:46)
[2019-12-23] MEDS: [UNRECOGNIZED DRUG - OTHER] PO SCH (21:46)
--- NOTE | 2019-12-24 06:50 | NUR ---
RN CLOSING NOTES PATIENT RESTING IN BED, EASILY AROUSABLE. A/OX4. NO SIGNS OF DISTRESS OR DISCOMFORT. BREATHING EVEN AND UNLABORED. DENIES SI/HI AT THIS TIME. ALL NEEDS MET. NO SIGNIFICANT CHANGES THROUGH THE NIGHT. PATIENT SLEPT APPROX 8 HRS. BED IN LOW LOCKED POSITION WITH SIDE RAILS X2. CALL LIGHT WITHIN REACH. WILL ENDORSE TO AM SHIFT FOR RANDOLPH
--- NOTE | 2019-12-24 07:30 | NUR ---
RN MS NOTES PT AWAKE, ALERT AND ORIENTED, SITTING IN BED, EATING BREAKFAST, NO COMPLAINT OF PAIN OR ANY DISCOMFORT, RESPIRATIONS NORMAL, CALL LIGHT WITHIN REACH, NEEDS ATTENDED.
[2019-12-24 08:00] VITALS: BP 132/87
[2019-12-24 16:00] VITALS: BP 123/85
--- NOTE | 2019-12-24 18:23 | NUR ---
RN MS NOTES PT AWAKE, SITTING IN HER CHAIR, ALERT AND ORIENTED, NO COMPLAINT OF PAIN, NOT IN DISTRESS, WITH GOOD ORAL INTAKE, SEEN BY DR. VIRGEN TODAY, NO BEHAVIOR PROBLEM NOTED.
--- NOTE | 2019-12-24 19:10 | NUR ---
MS RN NOTE RECEIVED PT IN STABLE CONDITION A/O X4, NOTED IN ROOM. NO SIGNS OF DISTRESS. COOPERATIVE WITH CURRENT PLAN OF CARE. WILL CONT. TO MONITOR.
[2019-12-24] MEDS: [UNRECOGNIZED DRUG - OTHER] PO SCH (21:35)
--- NOTE | 2019-12-25 06:28 | NUR ---
MS RN NOTE PT REMAINS IN STABLE CONDITION A/O X4, NOTED IN ROOM. NO SIGNS OF DISTRESS. COOPERATIVE WITH CURRENT PLAN OF CARE. WILL CONT. TO MONITOR AND ENDORSE TO NEXT SHIFT FOR RANDOLPH.
[2019-12-25 08:00] VITALS: BP 124/85
[2019-12-25 16:00] VITALS: BP 107/68
--- NOTE | 2019-12-25 19:48 | NUR ---
MS RN OPENING NOTES AWAKE, A/O X4; RESTING IN BED COMFORTABLY; NO SOB; NO S/S OF ACUTE RESPIRATORY DISTRESS NOTED; PATIENT DENIES PAIN; SAFETY PRECAUTIONS IN PLACE; BED LOCKED IN LOW POSITION; SIDE RAILS X2; CALL LIGHT WITHIN REACH; WILL CONTINUE TO MONITOR
[2019-12-25 20:00] VITALS: BP 131/80
[2019-12-25 20:28] VITALS: BP 131/80
[2019-12-25] MEDS: [UNRECOGNIZED DRUG - OTHER] PO SCH (21:56)
--- NOTE | 2019-12-26 06:47 | NUR ---
MS RN CLOSING NOTES PATIENT AWAKE, A/OX4; RESTING COMFORTABLY IN BED; BREATHING EVEN AND UNLABORED; TOLERATING ROOM AIR WELL; NO SOB; NO S/S OF ACUTE RESPIRATORY DISTRESS NOTED; PATIENT DENIES PAIN; SAFETY PRECAUTIONS IN PLACE; BED LOCKED IN LOW POSITION; SIDE RAILS X2; CALL LIGHT WITHIN EASY REACH; ALL NEEDS RENDERED; WILL ENDORSE CONTINUITY OF CARE TO ONCOMING SHIFT
--- NOTE | 2019-12-26 07:27 | NUR ---
MS RN OPENING NOTES RECEIVED PT SITTING ON CHAIR BY BEDSIDE. A/O X4. ABLE TO MAKE NEEDS KNOWN, DENIES PAIN OR ANY DISCOMFORTS AT THIS TIME. ON ROOM AIR, BREATHING EVEN AND UNLABORED. SAFETY PRECAUTIONS IN PLACE: BED IS LOCKED AND IN LOWEST POSITION. CALL LIGHT WITHIN REACH. WILL CONTINUE TO MONITOR.
[2019-12-26 08:00] VITALS: BP 117/82
[2019-12-26 16:00] VITALS: BP 136/83
--- NOTE | 2019-12-26 19:04 | NUR ---
MS RN CLOSING NOTES PATIENT RESTING IN HER BED WATCHING TV AT THIS TIME. A/O X4. ABLE TO MAKE NEEDS KNOWN. ON CLINICAL TRIAL, NO INAPPROPRIATE BEHAVIOR NOTED DURING THE DAY. DENIES ANY SI/HI. CALL LIGHT WITHIN REACH. ON ROOM AIR, TOLERATING WELL WITH NO ACUTE DISTRESS NOTED THROUGHOUT THE DAY. PT IS AMBULATORY WITH STEADY GAIT. ALL NEEDS AND CARE ATTENDED WELL. WILL ENDORSE TO PATIENT SCHEDULER NURSE FOR RANDOLPH
--- NOTE | 2019-12-26 19:30 | NUR ---
MS RN OPENING NOTES PATIENT AWAKE AND SITTING IN CHAIR NEXT TO BEDSIDE. A/OX4. ABLE TO VERBALIZE NEEDS. ON ROOM AIR. NO S/S OF SOB AND NO COMPLAINTS OF PAIN AT THIS TIME. NO IV PRESENT. BED LOCKED, SIDE RAILS X2, CALL LIGHT WITHIN REACH. WILL CONTINUE TO MONITOR.
[2019-12-26 20:00] VITALS: BP 128/81
[2019-12-26] MEDS: LORAZEPAM 1 MG TABLET FOR AGITATION PO PRN (20:26)
[2019-12-26] MEDS: [UNRECOGNIZED DRUG - OTHER] PO SCH (22:01)
--- NOTE | 2019-12-27 06:35 | NUR ---
MS RN CLOSING NOTES PATIENT SITTING IN CHAIR NEXT TO BEDSIDE. A/OX4. REMAINED STABLE DURING ENTIRE SHIFT. PATIENT DENIES SI/HI. ABLE TO VERBALIZE NEEDS. NO COMPLAINTS OF PAIN/DISTRESS AT THIS TIME. SAFETY MEASURES IN PLACE. CALL LIGHT WITHIN REACH. WILL ENDORSE TO DAY SHIFT NURSE TO FOLLOW PLAN OF CARE.
--- NOTE | 2019-12-27 07:09 | NUR ---
MS RN OPENING NOTES PATIENT RECEIVED SITTING ON CHAIR BY BEDSIDE. A/O X4. ABLE TO VERBALIZED NEEDS, DENIES PAIN OR ANY DISCOMFORTS AT THIS TIME. TOLERATING ROOM AIR WITH NO SOB NOTED. CALL LIGHT WITHIN REACH. WILL CONTINUE TO MONITOR.
[2019-12-27 08:00] VITALS: BP 133/84
[2019-12-27 16:00] VITALS: BP 126/79
--- NOTE | 2019-12-27 18:39 | NUR ---
MS RN CLOSING NOTES PATIENT SITTING ON CHAIR BY BEDSIDE. A/O X4. ABLE TO MAKE NEEDS KNOWN. PT IS AMBULATORY WITH STEADY GAIT. ON CLINICAL TRIAL, NO INAPPROPRIATE BEHAVIOR NOTED DURING THE DAY. DENIES ANY SI/HI. CALL LIGHT WITHIN REACH. ON ROOM AIR, TOLERATING WELL WITH NO ACUTE DISTRESS NOTED THROUGHOUT THE DAY. ALL NEEDS AND CARE ATTENDED WELL. WILL ENDORSE TO RACE CAR DRIVER NURSE FOR RANDOLPH
--- NOTE | 2019-12-27 19:35 | NUR ---
MS2/RN RECEIVED PATIENT IN ROOM SITTING ON CHAIR AT BEDSIDE AWAKE, ALERT, ORIENTED, CALM AND COMFORTABLE, NO C/O PAIN, NO DISTRESS NOTED, CALL LIGHT IN REACH. WILL MONITOR.
[2019-12-27 20:00] VITALS: BP 126/75
[2019-12-27] MEDS: LORAZEPAM 1 MG TABLET FOR AGITATION PO PRN (21:02)
[2019-12-27] MEDS: [UNRECOGNIZED DRUG - OTHER] PO SCH (22:07)
--- NOTE | 2019-12-27 22:09 | NUR ---
MS2/RN PATIENT REQUESTED NOT TO BE DISTURBED WHEN SLEEPING.
--- NOTE | 2019-12-28 06:15 | NUR ---
MS2/RN PATIENT APPEAR SLEEPING, APPEAR COMFORTABLE, NO DISTRESS NOTED, CALL LIGHT IN REACH, WILL CONTINUE TO MONITOR. ALL NEEDS ATTENDED AT THIS TIME.
--- NOTE | 2019-12-28 07:20 | NUR ---
RN OPENING NOTES PATIENT RECEIVED SITTING ON CHAIR BY BEDSIDE. A/O X4. ABLE TO VERBALIZED NEEDS. NOT IN ANY FORM OF DISTRESS. DENIES PAIN OR ANY DISCOMFORTS AT THIS TIME. TOLERATING ROOM AIR WITH NO SOB NOTED. CALL LIGHT WITHIN REACH. WILL CONTINUE TO MONITOR.
[2019-12-28 08:00] VITALS: BP 132/84
[2019-12-28 16:00] VITALS: BP 136/87
--- NOTE | 2019-12-28 19:29 | NUR ---
RN CLOSING NOTES PATIENT IN STABLE CONDITION. ALL NEEDS ATTENDED AND PROVIDED. ASSISTED WITH ADLS. KEPT PATIENT SAFE AND COMFORTABLE. BED IN LOW,LOCKED POSITION. SIDERAILS UPX2, CALL LIGHT IN REACH. ENDORSED ACCORDINGLY.
--- NOTE | 2019-12-28 20:16 | NUR ---
MS RN NOTES RECEIVED PATIENT AWAKE AND CALM IN BED WITH NO DISTRESS NOTED. CALL LIGHT WITHIN REACH. NO C/O PAIN OR DISCOMFORT. ROOM FREE OF CLUTTER AND BELONGINGS KEPT NEAR BEDSIDE. WILL CONTINUE TO MONITOR
[2019-12-28 21:23] VITALS: BP 126/85
[2019-12-28] MEDS: [UNRECOGNIZED DRUG - OTHER] PO SCH (21:25)
--- NOTE | 2019-12-29 06:40 | NUR ---
MS RN NOTES PATIENT ASLEEP IN BED WITH NO DISTRESS NOTED. CALL LIGHT WITHIN REACH. ALL DUE MEDS GIVEN ORDERED WITH NO ASE. NO BEHAVIORAL EPISODES NOTED DURING SHIFT. BED IN LOW LOCK SETTING. ROOM FREE OF CLUTTER AND BELONGINGS KEPT NEAR BEDSIDE. WILL ENDORSE TO ONCOMING SHIFT.
[2019-12-29 08:00] VITALS: BP 155/81
--- NOTE | 2019-12-29 08:00 | NUR ---
RN NOTES received patient in the room eating, stable, no acute respiratory distress, v/s wnl. refused si/hi at his time, calm cooperative. Educated medication side effect. patient hearing voiced but less at this time, and voice telling same to kill herself. patient re- directable, refused anxiety, ambulatory self care. Encouraged to express feelings and concerns, call light within to reach, safety precaution maintained all the time.
[2019-12-29 16:00] VITALS: BP 116/73
--- NOTE | 2019-12-29 18:00 | NUR ---
RN NOTES PATIENT IN THE ROOM, NO ACUTE DISTRESS, V/S STABLE. SEEN PSYCHIATRIST Dr VIRGEN. NO NEW ORDER.. PATIENT REFUSED SI/HI AT THIS TIME. PATIENT STATE STILL HEARING VOICES BUT NOT HARMFUL. CALL LIGHT WITHIN TO REACH. CONTINUED MONITORING.
--- NOTE | 2019-12-29 19:41 | NUR ---
MS2/RN RECEIVED PATIENT IN ROOM SITTING ON CHAIR AT BEDSIDE AWAKE, ALERT, ORIENTED, COMFORTABLE, NO C/O PAIN, NO DISTRESS NOTED, PLAN OF CARE DISCUSSED (NPO AFTER 2100, HOLD LORAZEPAM AT 2300, PER DR. VIRGEN ORDERS), PATIENT VERBALIZED UNDERSTANDING. WILL MONITOR..
[2019-12-29 20:52] VITALS: BP_DIAS 70
--- NOTE | 2019-12-29 21:00 | NUR ---
MS2/RN PATIENT REQUESTED NOT TO BE BOTHERED WHEN SLEEPING.
[2019-12-29] MEDS: [UNRECOGNIZED DRUG - OTHER] PO SCH (21:10)
--- NOTE | 2019-12-30 06:39 | NUR ---
MS2/RN PATIENT IS AWAKE, ALERT, ORIENTED, IN ROOM SITTING ON CHAIR AT BEDSIDE, NPO POST 2100, ALL NEEDS ATTENDED AT THIS TIME, WILL CONTINUE TO MONITOR.
[2019-12-30 08:00] VITALS: BP 116/77
--- NOTE | 2019-12-30 08:00 | NUR ---
RN NOTES RECEIVED PATIENT IN THE ROOM NPO AT THIS TIME. NO ACUTE RESPIRATORY DISTRESS, V/S STABLE. PATIENT SCHEDULED FOR LABS AND EKG THIS MORNING TO START NEW RESEARCH MEDICATION. CALL LIGHT WITHIN TO REACH. CONTINUED MONITORING.
--- NOTE | 2019-12-30 08:54 | NUR ---
RN NOTES PATIENT AREA MANAGER FROM Dr DESIR OFFICE PERSONNEL FOR TEST.
--- NOTE | 2019-12-30 18:00 | NUR ---
RN NOTES PATIENT IN THE ROOM, NO ACUTE DISTRESS, V/S STABLE. PATIENT REFUSED SI/HI AT THIS TIME. PATIENT STATE STILL HEARING VOICES BUT NOT HARMFUL. CALL LIGHT WITHIN TO REACH. CONTINUED MONITORING. ENDORSED ONCOMING NURSE FOLLOW PLAN OF CARE.
[2019-12-30 20:00] VITALS: BP 124/79
[2019-12-30] MEDS: [UNRECOGNIZED DRUG - OTHER] PO SCH (22:02)
--- NOTE | 2019-12-30 22:03 | NUR ---
MS2/RN PATIENT REQUESTED NOT TO BE BOTHERED WHEN ALREADY SLEEPING.
--- NOTE | 2019-12-31 00:16 | NUR ---
MS2/RN PATIENT IS SLEEPING AT THIS TIME.
--- NOTE | 2019-12-31 07:11 | NUR ---
MS RN OPENING NOTES PATIENT RECEIVED SITTING ON CHAIR BY BEDSIDE. A/O X4. ABLE TO VERBALIZED NEEDS, DENIES PAIN OR ANY DISCOMFORTS AT THIS TIME. ON ROOM AIR, TOLERATING WELL WITH NO SOB NOTED. CALL LIGHT WITHIN REACH. WILL CONTINUE TO MONITOR.
[2019-12-31 14:36] VITALS: BP 126/71
[2019-12-31 16:00] VITALS: BP 128/83
--- NOTE | 2019-12-31 18:50 | NUR ---
MS RN CLOSING NOTES PATIENT SITTING ON CHAIR BY BEDSIDE AT THIS TIME. A/O X4. ABLE TO MAKE NEEDS KNOWN. PT IS AMBULATORY WITH STEADY GAIT. ON CLINICAL TRIAL, NO INAPPROPRIATE BEHAVIOR NOTED DURING SHIFT. DENIES SI/HI. CALL LIGHT WITHIN REACH. ON ROOM AIR, TOLERATING WELL WITH NO ACUTE DISTRESS NOTED THROUGHOUT THE DAY. ALL NEEDS AND CARE ATTENDED WELL. WILL ENDORSE TO ASSISTANT IMPORT MANAGER NURSE FOR RANDOLPH
--- NOTE | 2019-12-31 19:47 | NUR ---
MS2/RN RECEIVED PATIENT IN ROOM SITTING ON CHAIR AT BEDSIDE EATING, AWAKE, ALERT, ORIENTED, CALM AND COMFORTABLE, NO C/O PAIN, NO DISTRESS NOTED, CALL LIGHT IN REACH. WILL MONITOR.
[2019-12-31 20:00] VITALS: BP 118/82
[2019-12-31] MEDS: [UNRECOGNIZED DRUG - OTHER] PO SCH (22:14)
--- NOTE | 2019-12-31 22:30 | NUR ---
MS2/RN PATIENT REQUESTED NOT TO BE BOTHERED WHEN SLEEPING.
--- NOTE | 2020-01-01 06:40 | NUR ---
MS2/RN PATIENT IS AWAKE, SITTING ON CHAIR AT BEDSIDE, CALM AND COMFORTABLE, NO DISTRESS NOTED, ALL NEEDS ATTENDED AT THIS TIME, WILL CONTINUE TO MONITOR.
[2020-01-01 08:00] VITALS: BP 120/79
[2020-01-01 16:00] VITALS: BP 124/81
--- NOTE | 2020-01-01 18:08 | NUR ---
MS RN CLOSING NOTES PATIENT SITTING ON CHAIR BY BEDSIDE AT THIS TIME. A/O X4. ABLE TO MAKE NEEDS KNOWN. PT IS AMBULATORY WITH STEADY GAIT. ON CLINICAL TRIAL, NO INAPPROPRIATE BEHAVIOR NOTED DURING SHIFT. DENIES SI/HI. CALL LIGHT WITHIN REACH. ON ROOM AIR, TOLERATING WELL WITH NO ACUTE DISTRESS NOTED THROUGHOUT THE DAY.NEEDS AND CARE ATTENDED WELL.
--- NOTE | 2020-01-01 19:58 | NUR ---
RN NOTES PATIENT RECEIVED SITTING ON CHAIR BY BEDSIDE. ALERT ORIENTED X4. ABLE TO VERBALIZED NEEDS. NOT IN ANY FORM OF DISTRESS. DENIES PAIN OR ANY DISCOMFORTS AT THIS TIME. DENIES HALLUCINATIONS OR SUICIDAL IDEATION,TOLERATING ROOM AIR WITH NO SOB NOTED. CALL LIGHT WITHIN REACH. WILL CONTINUE TO MONITOR ACCORDINGLY.
[2020-01-01 20:00] VITALS: BP 111/75
[2020-01-01 20:50] VITALS: BP 111/75
[2020-01-01] MEDS: LORAZEPAM 1 MG TABLET FOR AGITATION PO PRN (21:40)
--- NOTE | 2020-01-01 21:42 | NUR ---
RN NOTES PATIENT COMPLAINTS OF ANXIETY AND RESTLESSNESS STATING " I'M ANXIOUS BECAUSE I WILL BE GOING HOME SOON, I HAVE BEEN HERE SINCE OCTOBER. I NEED ATIVAN". ATIVAN 1 MG PO GIVEN PER MD ORDER FOR PRN.WILL CONTINUE TO MONITOR.
[2020-01-01] MEDS: [UNRECOGNIZED DRUG - OTHER] PO SCH (22:34)
[2020-01-02 06:10] VITALS: BP 124/81
--- NOTE | 2020-01-02 06:39 | NUR ---
RN NOTES ABLE TO REST AND SLEPT AT INTERVALS,ABLE TO VERBALIZED NEEDS. NOT IN ANY FORM OF DISTRESS. DENIES PAIN OR ANY DISCOMFORT AT THIS TIME. DENIES HALLUCINATIONS OR SUICIDAL IDEATION,TOLERATING ROOM AIR WITH NO SOB NOTED. CALL LIGHT WITHIN EASY REACH. WILL ENDORSE TO AM NURSE FOR CONTINUITY OF CARE.
[2020-01-02 07:30] VITALS: BP 123/82
--- NOTE | 2020-01-02 07:37 | NUR ---
MS/CT RN OPENING NOTES RECEIVED PT IN BED, AWAKE, A/O X4. FAMILY PRESENT AT BEDSIDE. PT TOLERATING RA, WITH NO ACUTE RESPIRATORY DISTRESS NOTED. PT DENIES ANY PAIN AND DISCOMFORT AT THE THIS TIME. NO IV ACCESS NOTED. PT KEPT COMFORTABLE. PT'S BED IN LOWEST LOCKED POSITION WITH SR X3. CALL LIGHT KEPT WITHIN REACH. WILL CONTINUE PLAN OF CARE.
--- NOTE | 2020-01-02 18:45 | NUR ---
MS/CT RN CLOSING NOTES PT REMAINS IN BED, AWAKE, A/O X4. PT TOLERATING RA, WITH NO ACUTE RESPIRATORY DISTRESS NOTED. PT DENIES ANY PAIN AND DISCOMFORT AT THE THIS TIME. NO IV ACCESS NOTED. PT KEPT COMFORTABLE. ALL NEEDS AND CARE ATTENDED. PT'S BED IN LOWEST LOCKED POSITION WITH SR X3. CALL LIGHT KEPT WITHIN REACH. WILL ENDORSE TO INCOMING NIGHT NURSE FOR RANDOLPH.
--- NOTE | 2020-01-02 19:20 | NUR ---
RN OPENING NOTES: RECEIVED PT ON BED AND IS A/OX4. PT APPEARS TO BE FIDGETY MOTION IN BED. PT REQUESTING FOR SOMETHING TO CALM DOWN. NO IV NOTED PT IS CLINICAL TRIAL. PT REFUSING BED ALARM. BED KEPT IN LOW, LOCKED POSITION, AND SIDE RAILS X 2UP. WILL CONTINUE TO MONITOR PT.
[2020-01-02] MEDS: LORAZEPAM 1 MG TABLET FOR AGITATION PO PRN (20:00)
--- NOTE | 2020-01-02 20:00 | NUR ---
MS PIPER NOTES: PT APPEARS TO BE AGITATED AND REQUESTING FOR HER ATIVAN. PT WAS ADMINISTERED ATIVAN 1MG PO. WILL CONTINUE TO MONITOR. Addendum: 01/03/20 at 0645 by ERIBERTO VAUGHN RN FELIZ NOTES
[2020-01-02 20:50] VITALS: BP 119/73
[2020-01-02] MEDS: [UNRECOGNIZED DRUG - OTHER] PO SCH (21:00)
--- NOTE | 2020-01-03 06:44 | NUR ---
RN CLOSING NOTES: ALL NEEDS WERE ATTENDED AND ANTICIPATED FOR. PT RESTING IN BED AT THIS TIME IN HER ROOM WITH HER FAN ON. NO SOB NOTED. NO S/S OF DISTRESS. NO IV NOTED. PT FULLY ALERT. BED KEPT IN LOW, LOCKED POSITION. INSTRUCTED PT TO USE CALL LIGHT FOR ASSISTANCE. PT INDEPENDENT FOR THE MOST PART. PT SLEPT FOR AT LEAST 6 HOURS. WILL ENDORSE TO AM NURSE FOR RANDOLPH.
--- NOTE | 2020-01-03 07:54 | NUR ---
CLINICAL TRIAL OPENING NOTES RECEIVED PT ON BED, RESPONSIVE TO ALL STIMULI, A/OX4. RESPIRATION EVEN AND NON LABORED WITH NO ACUTE RESPIRATORY DISTRESS. ABD SOFT AND NON DISTENDED WITH ACTIVE BOWEL SOUNDS. SKIN WARM TO TOUCH AND DRY. DENIES PAIN AND DISCOMFORT. NO IV SITE. COOPERATIVE WITH CARE AT THIS TIME. CALL LIGHT WITHIN REACH. WILL CONTINUE TO EVALUATE CARE.
[2020-01-03 08:00] VITALS: BP 132/84
[2020-01-03 16:00] VITALS: BP 114/71
[2020-01-03] MEDS: LORAZEPAM 1 MG TABLET FOR AGITATION PO PRN (19:29)
--- NOTE | 2020-01-03 19:31 | NUR ---
CLINICAL TRIAL RN CLOSING NOTES PT A/OX4, RESPONSIVE TO ALL STIMULI. COOPERATIVE WITH CARE, NO EPISODES OF AH/VH. NO SOB NOTED. ABD SOFT AND DISTENDED. DENIES PAIN AND DISCOMFORT. SKIN WARM TO TOUCH, DRY AND INTACT. ALL CONCERNS ATTENDED. ENDORSED PT CARE TO NEXT SHIFT.
[2020-01-03] MEDS: [UNRECOGNIZED DRUG - OTHER] PO SCH (21:23)
--- NOTE | 2020-01-04 05:12 | NUR ---
ENDING NOTES: AT THE BEGINNING OF THE SHIFT PATIENT WAS SITTING UP IN A CHAIR AND ROCKING BACK AND FORTH. FRIENDLY AND ALERT AND ORIENTATED. STATED WHEN SHE WANTED HER MEDICATION AND NEEDED TO BE IN BED BY 10 PM. SHE IS EATING CANDY AND DRINKING WATER. QUIET AND SOFT SPOKEN
--- NOTE | 2020-01-04 07:31 | NUR ---
CLINICAL TRIAL OPENING NOTES RECEIVED PT ON BED, RESPONSIVE TO ALL STIMULI, A/OX4. RESPIRATION EVEN AND NON LABORED WITH NO ACUTE RESPIRATORY DISTRESS. ABD SOFT AND NON DISTENDED WITH ACTIVE BOWEL SOUNDS. SKIN WARM TO TOUCH AND DRY. DENIES PAIN AND DISCOMFORT. NO IV SITE. COOPERATIVE WITH CARE AT THIS TIME. STATED ABLE TO SLEEP WELL LAST NIGHT WITH NO DIFFICULTIES. CALL LIGHT WITHIN REACH. WILL CONTINUE TO EVALUATE CARE.
[2020-01-04 08:00] VITALS: BP 120/76
[2020-01-04 16:00] VITALS: BP 120/81
[2020-01-04] MEDS: LORAZEPAM 1 MG TABLET FOR AGITATION PO PRN (18:56)
[2020-01-04 20:41] VITALS: BP 124/86
[2020-01-04] MEDS: [UNRECOGNIZED DRUG - OTHER] PO SCH (21:39)
--- NOTE | 2020-01-05 06:00 | NUR ---
PATIENT SLEPT FOR 7 HOURS LAST NIGHT. PATIENT DENIED ANY SI /HI LAST NIGHT. PATIENT IS IN GOOD MOOD WITH SMILE AND IS ACTING APPROPRIATE. WILL CONT TO MONITOR.
--- NOTE | 2020-01-05 07:18 | NUR ---
MS RN OPENING NOTES RECEIVED PT AWAKE AND RESTING IN BED. A/O X4. ABLE TO MAKE NEEDS KNOWN, DENIES PAIN OR ANY DISCOMFORTS AT THIS TIME. ON ROOM AIR, BREATHING EVEN AND UNLABORED. SAFETY PRECAUTIONS IN PLACE: BED IS LOCKED AND IN LOWEST POSITION. CALL LIGHT WITHIN REACH. WILL CONTINUE TO MONITOR.
[2020-01-05 08:40] VITALS: BP 132/80
[2020-01-05 16:17] VITALS: BP 120/77
[2020-01-05 20:13] VITALS: BP 129/83
[2020-01-05] MEDS: [UNRECOGNIZED DRUG - OTHER] PO SCH (20:56)
--- NOTE | 2020-01-05 20:57 | NUR ---
PATIENT NPO; DENIES SI/HI; REPORTS THAT HER SCHIZO SYMPTOMS ARE AT LOWER LEVELS. reviewed with patient npo status verbalized understanding to not eat or drink anything after 9pm. patient denies si and hi. patient acting apporopriate. REPORTS THAT HER USUAL SCHIZO SYMPTOMS HAVE BEEN LESS OF LATE. sitting in chair in the room. states "Im excited i get to leave tomorow. " will cont to monitor.
--- NOTE | 2020-01-06 07:27 | NUR ---
PATIENT IN ROOM AWAKE. PATIENT SLEPT FOR 6 HOURS LAST NIGHT. REPORTS SHE IS STILL NPO. PATIENT DENIED ANY SI /HI LAST NIGHT. PATIENT IS IN GOOD MOOD WITH SMILE AND IS SITTING IN HER CHAIR IN ROOM ROCKING. CONVERSES WHEN SPOKEN TO IN CONGENIAL MOOD. WILL CONT TO MONITOR.
[2020-01-06 08:00] VITALS: BP 139/81
--- NOTE | 2020-01-06 08:00 | NUR ---
RN MS NOTES PT IN AWAKE, ALERT AND ORIENTED, SITTING IN HER CHAIR, NO COMPLAINT OF PAIN OR ANY DISCOMFORT, NOT IN DISTRESS, RESPIRATIONS NORMAL, PT KEPT ON NPO FOR BLOOD DRAW TODAY AND DISCHARGE AFTER, PT VERBALIZED UNDERSTANDING.
--- NOTE | 2020-01-06 08:49 | NUR ---
RN MS NOTES RECEIVED DISCHARGE ORDER FROM DR. VIRGEN, PT INFORMED, DISCHARGE INSTRUCTIONS PROVIDED TO PT, VERBALIZED UNDERSTANDING.
--- NOTE | 2020-01-06 09:00 | NUR ---
RN MS NOTES PT INFORMED OF DISCHARGE INSTRUCTIONS, VERBALIZED UNDERSTANDING, PT WILL GO TO THE OFFICE FOR HER BLOOD DRAW, BELONGINGS ACCOUNTED FOR, LEFT IN STABLE CONDITION.
[2020-01-06] MEDS ORDERED: LORAZEPAM 1 MG TABLET FOR AGITATION PO PRN (12:00)
== END 2020-01-06 09:00 | disposition home or self-care (01) | DRG 951 ==
LOC: MEDSG2 12:05
PROVIDERS: ADMIT Psychiatry & Neurology Psychiatry; ATTEND Psychiatry & Neurology Psychiatry
DX: Z00.6 Encounter for examination for normal comparison and control in clinical research program (principal); F20.0 Paranoid schizophrenia; F29 Unspecified psychosis not due to a substance or known physiological condition; F41.9 Anxiety disorder, unspecified; Z79.899 Other long term (current) drug therapy; F17.210 Nicotine dependence, cigarettes, uncomplicated
CPT/HCPCS: 87081-TC; G0378

== ENCOUNTER 2021-06-13 12:19 | Inpatient (IN) | payer OTHER ==
[~2021-06-13] VITALS: Ht 165.1 cm; Wt 86.2 kg
[~2021-06-13 12:19] MED LIST changes: -DIPH25CA51 PO
[2021-06-13] MEDS ORDERED: MAGNESIUM HYDROXIDE 30 ML UDC PO PRN (15:00)
[2021-06-13] MEDS ORDERED: ZOLPIDEM TARTRATE 10 MG TABLET PO PRN (15:00)
[2021-06-13] MEDS ORDERED: ACETAMINOPHEN ES 500 MG TABLET PO PRN (15:00)
[2021-06-13] MEDS ORDERED: IBUPROFEN 200 MG TABLET PO PRN (15:00)
[2021-06-13] MEDS ORDERED: MAG HYDROX/AL HYDROX/SIMETH 30 ML UDC PO PRN (15:00)
[2021-06-13 16:00] VITALS: BP 135/85
--- NOTE | 2021-06-13 19:13 | NUR ---
MS RN Opening Notes Patient was last seen sleeping in bed. Patient's in no acute distress at this time Safety measures in place: Bed locked, side rails up, and call light within reach of the patient. Will continue to monitor the patient.
[2021-06-13 20:00] VITALS: BP 132/89
--- NOTE | 2021-06-14 07:17 | NUR ---
MS RN Closing Notes Patient was last seen awake resting in bed. Patient's on room air with no respiratory distress noted. Patient's in no acute distress at this time. Safety measures in place: Bed locked, side rails up x2, and call light within reach of the patient. Endorsed care to the day shift nurse.
[2021-06-14 08:00] VITALS: BP 141/84
--- NOTE | 2021-06-14 08:00 | NUR ---
RN OPENING NOTE PT AWAKE IN BED AND RESTING. ON RA WITH NO SOB OR RESPIRATORY DISTRESS PRESENT. A/O X4 AND KOREAN SPEAKING. NO STEAM AND POWER SUPERVISOR PRESENT. NO EDEMA PRESENT. SELF AMBULATORY WITH BATHROOM PRIVILEGES. NO COMPLAINT OF PAIN OR NAUSEA. NO IV LINE DUE TO STATUS CLINICAL TRIAL PT. PT TO START INVESTIGATIONAL MEDS ON 06/24. SAFETY MEASURES IN PLACE. SIDE RAILS RAISED. BED LOWERED. CALL LIGHT WITHIN REACH. REACH. WILL CONTINUE TO MONITOR.
[2021-06-14] MEDS: AMLODIPINE 5 MG PO SCH (09:20)
[2021-06-14 16:00] VITALS: BP 141/91
--- NOTE | 2021-06-14 18:17 | NUR ---
RN CLOSING NOTE PT AWAKE IN BED AND RESTING. ON RA WITH NO SOB OR RESPIRATORY DISTRESS PRESENT. A/O X4 AND TAMAZIGHT SPEAKING. NO MIX TECHNICIAN PRESENT. NO EDEMA PRESENT. SELF AMBULATORY WITH BATHROOM PRIVILEGES. NO COMPLAINT OF PAIN OR NAUSEA. NO IV LINE DUE TO STATUS CLINICAL TRIAL PT. PT TO START INVESTIGATIONAL MEDS ON 06/24. LABS AND ORDERS REVIEWED. SAFETY MEASURES IN PLACE. SIDE RAILS RAISED. BED LOWERED. CALL LIGHT WITHIN REACH. REPORT TO BE GIVEN TO NIGHT NURSE FOR RANDOLPH.
--- NOTE | 2021-06-14 19:30 | NUR ---
MS RN OPENING NOTES RECEIVED PATIENT IN BED, AWAKE, A&O X 4, ON ROOM AIR TOLERATING WELL, NO SOB, I NO ACUTE RESPIRATORY DISTRESS NOTED. NO IV ACCESS NOTED/ SAFETY PRECAUTIONS IN PLACE: BED ON LOWEST LOCKED POSITION, SIDE RAILS UP X 2, KEPT CALL LIGHT WITHIN EASY REACH. PATIENT IS SELF AMBULATORY. WILL CONTINUE TO MONITOR PATIENT'S STATUS.
[2021-06-14 20:00] VITALS: BP 137/76
[2021-06-14 20:31] VITALS: BP 137/76
--- NOTE | 2021-06-15 06:48 | NUR ---
MS RN CLOSING NOTES PATIENT IN BED, ASLEEP, EASILY AWAKEN BY VERBAL AND TACTILE STIMULI, ON ROOM AIR TOLERATING WELL, NO SOB, IN NO ACUTE RESPIRATORY DISTRESS NOTED. NO IV ACCESS NOTED. SAFETY PRECAUTIONS IN PLACE: BED ON LOWEST LOCKED POSITION, SIDE RAILS UP X 2, KEPT CALL LIGHT WITHIN EASY REACH. PATIENT IS SELF AMBULATORY. NO UNTOWARD BEHAVIOR NOTED. ALL NEEDS ATTENDED AND MET, WILL ENDORSE TO ONCOMING SHIFT FOR RANDOLPH.
[2021-06-15 08:00] VITALS: BP 150/89
[2021-06-15] MEDS: AMLODIPINE BESYLATE 5 MG TABLET PO SCH (09:00)
--- NOTE | 2021-06-15 09:00 | NUR ---
RN OPENING NOTE- RECEIVED PATIENT IN BED, AWAKE, A&O X 4, ON ROOM AIR TOLERATING WELL, NO SOB, IN NO ACUTE RESPIRATORY DISTRESS NOTED. NO IV ACCESS NOTED/ SAFETY PRECAUTIONS IN PLACE: BED ON LOWEST LOCKED POSITION, SIDE RAILS UP X 2, KEPT CALL LIGHT WITHIN EASY REACH. PATIENT IS SELF AMBULATORY. WILL CONTINUE TO MONITOR PATIENT'S STATUS.
[2021-06-15] MEDS: AMLODIPINE 5 MG PO SCH (09:30)
--- NOTE | 2021-06-15 12:37 | NUR ---
RN NOTE- PT AWAKE VISIBLE ON UNIT AND INTERACTIVE. PO INTAKE GOOD . NO ISSUES
[2021-06-15] MEDS: LORAZEPAM 1 MG TABLET FOR AGITATION/ANXIETY PO PRN (15:45)
--- NOTE | 2021-06-15 15:46 | NUR ---
RN NOTE- PT W ANXIETY RESTLESSNESS. ATIVAN 1 MG GIVEN
[2021-06-15 16:00] VITALS: BP 131/96
--- NOTE | 2021-06-15 19:52 | NUR ---
MS RN OPENING NOTE RECEIVED PT AWAKE IN BED. A/O X4. PT IS STABLE ON ROOM AIR. NO SOB OR S/S OF RESPIRATORY DISTRESS NOTED. PT HAS NO C/O PAIN OR DISCOMFORT AT THIS TIME. NO IV ACCESS NOTED DUE TO CLINICAL TRIAL STATUS. SAFETY PRECAUTIONS MAINTAINED. BED IN LOWEST LOCKED POSITION, HOB ELEVATED, SIDE RAILS UP X2. CALL LIGHT AND TABLE WITHIN REACH. WILL CONTINUE WITH PLAN OF CARE.
[2021-06-15 20:00] VITALS: BP 108/68
--- NOTE | 2021-06-16 06:30 | NUR ---
MS RN CLOSING NOTE PT IS IN BED WITH EYES CLOSED, AROUSABLE TO STIMULATION. A/O X4. PT IS STABLE ON ROOM AIR. NO SOB OR S/S OF RESPIRATORY DISTRESS NOTED. PT HAS NO C/O PAIN OR DISCOMFORT AT THIS TIME. NO IV ACCESS NOTED DUE TO CLINICAL TRIAL STATUS. ALL NEEDS HAVE BEEN MET. SAFETY PRECAUTIONS MAINTAINED AT ALL TIMES. BED IN LOWEST LOCKED POSITION, HOB ELEVATED, SIDE RAILS UP X2. CALL LIGHT AND TABLE WITHIN REACH. WILL ENDORSE TO ONCOMING NURSE FOR RANDOLPH.
--- NOTE | 2021-06-16 07:54 | NUR ---
MS RN OPENING NOTE RECEIVED PATIENT AWAKE, SITTING AT EDGE OF BED. A/O X4. CLINICAL TRIAL PATIENT. STABLE ON ROOM AIR. NO SOB OR DISTRESS NOTED. PATIENT IS REQUESTING ATIVAN AT THIS TIME. NO IV ACCESS NOTED. SAFETY PRECAUTIONS IN PLACE. ENCOURAGED PATIENT TO CALL IF NEEDED. CALL LIGHT WITHIN REACH. WILL CONTINUE TO MONITOR.
[2021-06-16] MEDS: LORAZEPAM 1 MG TABLET FOR AGITATION/ANXIETY PO PRN (08:14)
[2021-06-16] MEDS: AMLODIPINE 5 MG PO SCH (08:14)
[2021-06-16] MEDS: AMLODIPINE BESYLATE 5 MG TABLET PO SCH (08:15)
--- NOTE | 2021-06-16 08:15 | NUR ---
PATIENT HAS BOTH HOME MED NORVASC AND NORVASC IN [facility] FROM PHARMACY. ONLY ADMINISTERED HOME MED.
--- NOTE | 2021-06-16 18:22 | NUR ---
MS RN CLOSING NOTE PATIENT CURRENTLY SITTING AT EDGE OF BED, AWAKE. A/O X4. CLINICAL TRIAL PATIENT. STABLE ON ROOM AIR. NO SOB OR DISTRESS NOTED. NO IV ACCESS NOTED. SAFETY PRECAUTIONS IN PLACE. ENCOURAGED PATIENT TO CALL IF NEEDED. CALL LIGHT WITHIN REACH. WILL ENDORSE TO SUPERVISOR MACHINE SETTER NURSE FOR [facility].
--- NOTE | 2021-06-16 19:38 | NUR ---
MS RN OPENING NOTE PATIENT NOT IN ROOM DURING CHANGE OF CARE REPORT.
[2021-06-16 20:00] VITALS: BP 140/87
--- NOTE | 2021-06-17 06:35 | NUR ---
MS RN CLOSING NOTE PATIENT IN BED COMFORTABLY SLEEPING, EASY TO AROUSE. NO S/S OF APPARENT DISTRESS. NO C/O PAIN. NO SIGNIFICANT CHANGE SINCE LAST SHIFT. WILL ENDORSE CARE TO MORNING SHIFT RN.
[2021-06-17 08:00] VITALS: BP 139/93
[2021-06-17] MEDS: AMLODIPINE BESYLATE 5 MG TABLET PO SCH (08:57)
[2021-06-17] MEDS: LORAZEPAM 1 MG TABLET FOR AGITATION/ANXIETY PO PRN (08:57)
[2021-06-17] MEDS: AMLODIPINE 5 MG PO SCH (09:00)
--- NOTE | 2021-06-17 10:49 | NUR ---
MS/RN OPENING NOTES RECEIVED PATIENT ON BED AWAKE ALERT AND ORIENTED X4. PATIENT IS ON ROOM AIR SATURTAING WELL. NO COMPLAINED OF PAIN AT THIS TIME. WILL CONTINUE TO MONITOR.
[2021-06-17 16:00] VITALS: BP 132/88
--- NOTE | 2021-06-17 19:00 | NUR ---
MS RN CLOSING NOTE PATIENT IS ON BED, AWAKE ALERT AND ORIENTED X4. CLINICAL TRIAL PATIENT. STABLE ON ROOM AIR. NO SOB OR DISTRESS NOTED. NO IV ACCESS NOTED. SAFETY PRECAUTIONS IN PLACE. ENCOURAGED PATIENT TO CALL IF NEEDED. CALL LIGHT WITHIN REACH. WILL ENDORSE TO ADMINISTRATIVE MANAGER NURSE FOR [facility].
--- NOTE | 2021-06-17 19:46 | NUR ---
MS RN OPENING NOTE PATIENT IN ROOM; A/OX 4; ABLE TO MAKE NEEDS KNOWN. TOLERATING ROOM AIR WELL WITH NO SOB. DENIES PAIN OR DISCOMFORT AT THIS TIME. NO IV ACCESS. ALL NEEDS MET AT THIS TIME. SAFETY MEASURES IN PLACE: BED IN LOWEST LOCKED POSITION: SIDE RAILS UPX2; AND CALL LIGHT WITHIN EASY REACH. PATIENT IN STABLE CONDITION; WILL CONTINUE TO MONITOR FOR ANY BEHAVIORS AND CONT PLAN OF CARE.
[2021-06-17 20:00] VITALS: BP 128/82
--- NOTE | 2021-06-18 06:38 | NUR ---
MS RN OPENING NOTE PATIENT IN ROOM; A/OX 4; ABLE TO MAKE NEEDS KNOWN. TOLERATING ROOM AIR WELL WITH NO SOB. DENIES PAIN OR DISCOMFORT AT THIS TIME. NO IV ACCESS. ALL NEEDS MET AT THIS TIME. SAFETY MEASURES IN PLACE: BED IN LOWEST LOCKED POSITION: SIDE RAILS UPX2; AND CALL LIGHT WITHIN EASY REACH. PATIENT IN STABLE CONDITION; WILL ENDORSE PLAN OF CARE TO ONCOMING MORNING RN.
--- NOTE | 2021-06-18 06:49 | NUR ---
MS RN CLOSING NOTE PATIENT IN ROOM; A/OX 4; ABLE TO MAKE NEEDS KNOWN. TOLERATING ROOM AIR WELL WITH NO SOB. DENIES PAIN OR DISCOMFORT AT THIS TIME. NO IV ACCESS. ALL NEEDS MET AT THIS TIME. SAFETY MEASURES IN PLACE: BED IN LOWEST LOCKED POSITION: SIDE RAILS UPX2; AND CALL LIGHT WITHIN EASY REACH. PATIENT IN STABLE CONDITION; WILL ENDORSE PLAN OF CARE TO ONCOMING MORNING RN.
--- NOTE | 2021-06-18 07:30 | NUR ---
RECEIVED PT. IN AM ALERT AND ORIENTED X4.SKIN WARM AND DRY. VS STABLE. NO DISTRESS.
[2021-06-18 08:00] VITALS: BP 135/89
[2021-06-18] MEDS: AMLODIPINE 5 MG PO SCH ×2 (08:14→08:22)
[2021-06-18] MEDS: AMLODIPINE BESYLATE 5 MG TABLET PO SCH (08:15)
[2021-06-18] MEDS: LORAZEPAM 1 MG TABLET FOR AGITATION/ANXIETY PO PRN (08:15)
--- NOTE | 2021-06-18 08:15 | NUR ---
GIVEN ATIVAN FOR ANXIETY.
[2021-06-18 16:00] VITALS: BP 131/90
--- NOTE | 2021-06-18 18:28 | NUR ---
NO CHG. IN STATUS,NO ACUTE DISTRESS.
--- NOTE | 2021-06-18 19:35 | NUR ---
MS RN NOTES PATIENT IN ROOM; A/OX 4; ABLE TO MAKE NEEDS KNOWN. TOLERATING ROOM AIR WELL WITH NO SOB. DENIES PAIN OR DISCOMFORT AT THIS TIME. NO IV ACCESS. ALL NEEDS MET AT THIS TIME. SAFETY MEASURES IN PLACE: BED IN LOWEST LOCKED POSITION: SIDE RAILS UPX2; AND CALL LIGHT WITHIN EASY REACH. PATIENT IN STABLE CONDITION; WILL CONTINUE TO MONITOR.
[2021-06-18 20:00] VITALS: BP 132/72
--- NOTE | 2021-06-19 06:58 | NUR ---
MS RN NOTES PATIENT IN ROOM; A/OX 4; ABLE TO MAKE NEEDS KNOWN. TOLERATING ROOM AIR WELL WITH NO SOB. DENIES PAIN OR DISCOMFORT AT THIS TIME. NO IV ACCESS. ALL NEEDS MET AT THIS TIME. SAFETY MEASURES IN PLACE: BED IN LOWEST LOCKED POSITION: SIDE RAILS UPX2; AND CALL LIGHT WITHIN EASY REACH. PATIENT IN STABLE CONDITION; WILL ENDORSE CARE TO DAY SHIFT NURSE.
[2021-06-19 08:00] VITALS: BP 135/86
--- NOTE | 2021-06-19 08:05 | NUR ---
MS/RN OPENING NOTES RECEIVED PATIENT IN ROOM; A/OX 4; ABLE TO MAKE NEEDS KNOWN. A CLINICAL TRIAL PATIENT. TOLERATING ROOM AIR WELL WITH NO SOB. DENIES PAIN OR DISCOMFORT AT THIS TIME. AMBULATORY. NO IV ACCESS. SAFETY MEASURES IN PLACE: BED IN LOWEST LOCKED POSITION: SIDE RAILS UPX2; AND CALL LIGHT WITHIN EASY REACH. WILL CONTINUE TO MONITOR PATIENT.
[2021-06-19] MEDS: LORAZEPAM 1 MG TABLET FOR AGITATION/ANXIETY PO PRN (08:20)
[2021-06-19] MEDS: AMLODIPINE 5 MG PO SCH (08:20)
[2021-06-19 16:00] VITALS: BP 125/80
--- NOTE | 2021-06-19 19:21 | NUR ---
MS/RN CLOSING NOTES PATIENT IN ROOM; A/OX 4; ABLE TO MAKE NEEDS KNOWN. A CLINICAL TRIAL PATIENT. TOLERATING ROOM AIR WELL WITH NO SOB. DENIES PAIN OR DISCOMFORT AT THIS TIME. AMBULATORY. NO IV ACCESS. SAFETY MEASURES IN PLACE: BED IN LOWEST LOCKED POSITION: SIDE RAILS UPX2; AND CALL LIGHT WITHIN EASY REACH. WILL ENDORSE TO THE NEXT SHIFT FOR RANDOLPH.
--- NOTE | 2021-06-19 19:35 | NUR ---
MS RN NOTES PATIENT IN ROOM; A/OX 4; ABLE TO MAKE NEEDS KNOWN. A CLINICAL TRIAL PATIENT. TOLERATING ROOM AIR WELL WITH NO SOB. DENIES PAIN OR DISCOMFORT AT THIS TIME. AMBULATORY. NO IV ACCESS. SAFETY MEASURES IN PLACE: BED IN LOWEST LOCKED POSITION: SIDE RAILS UPX2; AND CALL LIGHT WITHIN EASY REACH. WILL CONTINUE TO MONITOR.
[2021-06-19 20:00] VITALS: BP 123/66
--- NOTE | 2021-06-20 06:43 | NUR ---
MS RN NOTES PATIENT IN ROOM; A/OX 4; ABLE TO MAKE NEEDS KNOWN. A CLINICAL TRIAL PATIENT. TOLERATING ROOM AIR WELL WITH NO SOB. DENIES PAIN OR DISCOMFORT AT THIS TIME. AMBULATORY. NO IV ACCESS. SAFETY MEASURES IN PLACE: BED IN LOWEST LOCKED POSITION: SIDE RAILS UPX2; AND CALL LIGHT WITHIN EASY REACH. WILL ENDORSE CARE TO DAY SHIFT NURSE.
[2021-06-20] MEDS: AMLODIPINE 5 MG PO SCH (08:05)
--- NOTE | 2021-06-20 08:30 | NUR ---
RN NOTE PATIENT COMPLAINED OF FEELING ANXIOUS, ASKED FOR PRN ATIVAN, WILL GIVE ATIVAN ORDERED. WILL CONTINUE TO MONITOR
[2021-06-20] MEDS: LORAZEPAM 1 MG TABLET FOR AGITATION/ANXIETY PO PRN (08:31)
[2021-06-20 09:03] VITALS: BP 125/84
[2021-06-20 16:34] VITALS: BP 118/75
--- NOTE | 2021-06-20 18:26 | NUR ---
MS/RN CLOSING NOTES PATIENT IN ROOM; A/OX 4; ABLE TO MAKE NEEDS KNOWN. A CLINICAL TRIAL PATIENT. TOLERATING ROOM AIR WELL WITH NO SOB. DENIES PAIN OR DISCOMFORT AT THIS TIME. AMBULATORY. NO IV ACCESS. SAFETY MEASURES IN PLACE: BED IN LOWEST LOCKED POSITION: SIDE RAILS UPX2; AND CALL LIGHT WITHIN EASY REACH. WILL ENDORSE TO ONCOMING SHIFT .
--- NOTE | 2021-06-20 19:49 | NUR ---
MS RN OPENING NOTES Patient is A&Ox3. denies pain or discomfort. Denies any current needs. Sitting in chair with lights and TV off rocking back and forth. Will continue to monitor.
[2021-06-20 20:00] VITALS: BP 130/75
--- NOTE | 2021-06-21 06:29 | NUR ---
Patient has been awake alert and oriented throughout the night. Slept well though easy to wake. No overnight behaviors. No PRN medications requested. Patient did not leave unit. All needs met by staff.
[2021-06-21] MEDS: AMLODIPINE 5 MG PO SCH (08:12)
[2021-06-21 08:18] VITALS: BP 130/86
[2021-06-21] MEDS: LORAZEPAM 1 MG TABLET FOR AGITATION/ANXIETY PO PRN (08:18)
--- NOTE | 2021-06-21 09:21 | NUR ---
RN NOTE PATIENT COMPLAINED OF FEELING ANXIOUS, ASKED FOR PRN ATIVAN, WILL GIVE ATIVAN ORDERED. WILL CONTINUE TO MONITOR
[2021-06-21 16:33] VITALS: BP 132/87
--- NOTE | 2021-06-21 19:45 | NUR ---
MS RN OPENING NOTES Patient is A&Ox4, up and outside to smoke. Denies any anxiety or symptoms of schizophrenia currently. Will monitor and provide care appropriately.
--- NOTE | 2021-06-21 21:00 | NUR ---
Patient transferred to GPS at 2100. In stable condition. VS 98.0, 94BPM, RR 20, O2 93%, BP 123/79. Gave full report to GPS RN and handed over medications and chart.
--- NOTE | 2021-06-21 21:02 | NUR ---
GPS RN NOTE PATIENT WENT OUT TO SMOKE.
--- NOTE | 2021-06-21 21:10 | NUR ---
GPS RN NOTE RECEIVED PATIENT FROM MS 3 WEST FLOOR TRANSFER TO ROOM 214 -1. A/O X 4, ABLE TO MAKE NEEDS KNOWN. A CLINICAL TRIAL PATIENT, UNDER CARE OF JOSY MARY. DENIES ANXIETY OR ANY OTHER BEHAVIOR PROBLEM AT THIS TIME. TOLERATING ROOM AIR WELL WITH NO SOB. DENIES PAIN OR DISCOMFORT AT THIS TIME. AMBULATORY/STEADY. NO IV ACCESS. ORIENTED PATIENT TO THE UNIT & STAFF. OFFERED SNACK AT THIS TIME BUT PATIENT REFUSED. SAFETY MEASURES IN PLACE. BED IN LOWEST LOCKED POSITION. SIDE RAILS UPX2, WILL CONTINUE TO MONITOR PATIENT Q 15 MIN FOR SAFETY & BEHAVIOR.
--- NOTE | 2021-06-21 21:15 | NUR ---
GPS RN NOTE PATIENT CAME BACK TO THE UNIT AFTER SMOKING.
[2021-06-21 21:30] VITALS: BP 133/82
--- NOTE | 2021-06-21 22:05 | NUR ---
RN NOTE NURSE FROM MS 3 W ARRIVED TO THE UNIT TO GIVE THE REPORT & VERIFIED WITH THE NURSE IF DR. VIRGEN WAS NOTIFIED ABOUT PATIENT'S TRANSFER TO GPS UNIT, PER NURSE AM NURSING BROADCAST PRODUCER HAS TRIED TO CALL DR. VIRGEN BUT HAS NOT HEARD FROM MD YET. CLARIFIED WITH NIGHT NURSING BROADCAST PRODUCER & PER BROADCAST PRODUCER DR. VIRGEN COULD BE CALLED IF PATIENT NEEDS ANYTHING, OTHERWISE DR. VIRGEN WILL ASSESS THE PATIENT IN AM. PATIENT IS RESTING IN BED & ALL NEEDS HAS BEEN MET. WILL CONTINUE TO MONITOR THE PATIENT FOR SAFETY & BEHAVIOR.
--- NOTE | 2021-06-22 06:45 | NUR ---
RN NOTE: PATIENT WENT TO SMOKE.
--- NOTE | 2021-06-22 07:04 | NUR ---
GPS RN CLOSING NOTE; PATIENT CAME BACK FROM AFTER SMOKING. DENIES ANY ANXIETY AT THIS TIME. CALM & COOPERATIVE. NO C/O PAIN VERBALIZED AT THIS TIME. PATIENT SLEPT WELL AT NIGHT. ALL NEEDS ARE MET. WILL ENDORSE TO AM RN FOR CONTINUITY OF CARE.
[2021-06-22 08:00] VITALS: BP 129/84
[2021-06-22] MEDS: AMLODIPINE 5 MG PO SCH (08:30)
[2021-06-22] MEDS: LORAZEPAM 1 MG TABLET FOR AGITATION/ANXIETY PO PRN (08:30)
--- NOTE | 2021-06-22 08:31 | NUR ---
RN-CO: PATIENT REQUESTED FOR ATIVAN DUE TO C/O ANXIETY. SHE STATED SHE HEARS VOICES BUT SHE CANNOT UNDERSTAND WHAT IT IS BECAUSE " THEY MUFFLED." SHE DENIED VH AND PARANOIA.
[2021-06-22 20:00] VITALS: BP 136/84
--- NOTE | 2021-06-22 20:20 | NUR ---
GPS RN NOTES: RECEIVED PATIENT SLEEPING IN BED, EASILY AROUSABLE, A/O X3, APPROPRIATE AFFECT, PASSIVE, CALM AND COOPERATIVE. ABLE TO MAKE NEEDS KNOWN. LEFT UNIT FOR A SMOKE AT 1956 AND CAME BACK TO UNIT AT 2014. DENIES SI AT THIS TIME. DENIES PAIN. FLUID AND SNACKS GIVEN TOLERATED. WILL CONTINUE TO MONITOR Q15 FOR SAFETY, MOOD AND BEHAVIOR.
--- NOTE | 2021-06-22 20:30 | NUR ---
GPS RN NOTES: PATIENT INFORMED THAT AMBIEN AND LORAZEPAM WILL BE HELD AT 2200 TONIGHT PER MD ORDER.
--- NOTE | 2021-06-23 06:41 | NUR ---
GPS RN CLOSING NOTES: PATIENT IS AWAKE, A/O X3. PATIENT SLEPT 8HR THIS SHIFT. PATIENT WENT OUT AT AND [id number] FOR SMOKE BREAKS THIS SHIFT. PATIENT HAS NO S/S OF DISTRESS. RESPIRATION EVEN AND UNLABORED WITH EQUAL RISE AND FALL OF THE CHEST, ON ROOM AIR. ALL PATIENT CARE NEEDS HAVE BEEN MET ANTICIPATED. WILL CONTINUE TO MONITOR AND ENDORSE TO AM SHIFT.
[2021-06-23 08:00] VITALS: BP 134/87
[2021-06-23] MEDS: AMLODIPINE 5 MG PO SCH (08:15)
--- NOTE | 2021-06-23 10:17 | NUR ---
RN-CO: PATIENT IS CALM AND COOPERATIVE TO CARE. SHE GOES OUT EVERY 2 HOURS TO SMOKE. I DID NOT SEE HER GO TO ACTIVITY ROOM TO PARTICIPATE IN GROUP ACTIVITIES BUT I OBSERVED HER TALKING TO SOMEBODY IN HER PHONE MOST OF THE TIME. SHE STATED THAT SHE STILL HAS AUDITORY HALLUCINATIONS BUT UNABLE TO UNDERSTAND WHAT THE VOICES ARE SAYING. SHE DENIED VH AT THIS TIME.
--- NOTE | 2021-06-23 11:45 | NUR ---
RN-CO: PATIENT WAS PICKED UP BY DR DUDLEY'S STAFF .
[2021-06-23] MEDS ORDERED: ZOLPIDEM TARTRATE 10 MG TABLET PO PRN (13:00)
[2021-06-23] MEDS: LORAZEPAM 1 MG TABLET FOR AGITATION/ANXIETY PO PRN (13:16)
--- NOTE | 2021-06-23 13:16 | NUR ---
RN-CO: ATIVAN GIVEN FOR C/O ANXIETY.
[2021-06-23 16:00] VITALS: BP 138/82
[2021-06-23 19:48] VITALS: BP 140/89
--- NOTE | 2021-06-23 20:28 | NUR ---
GPS RN NOTES: RECEIVED PATIENT IN ROOM, AWAKE, ALERT AND ORIENTED X3. CALM AND COOPERATIVE, PASSIVE, ADMITS TO AUDITORY HALLUCINATION AT TIMES, "BUT NOT RIGHT NOW". DENIES SI, DENIES PAIN. NO S/S OF DISTRESS. RESPIRATION EVEN AND UNLABORED WITH EQUAL RISE AND FALL OF THE CHEST, ON ROOM AIR. WILL CONTINUE TO MONITOR Q15 FOR SAFETY, MOOD AND BEHAVIOR.
--- NOTE | 2021-06-24 06:58 | NUR ---
GPS RN CLOSING NOTES: PATIENT IS AWAKE, A/O X3. PATIENT SLEPT 8HRS THIS SHIFT. PATIENT WENT OUT OF THE UNIT 3 TIME FOR SMOKE BREAKS THIS SHIFT. PATIENT HAS NO S/S OF DISTRESS. RESPIRATION EVEN AND UNLABORED WITH EQUAL RISE AND FALL OF THE CHEST, ON ROOM AIR. ALL PATIENT CARE NEEDS HAVE BEEN MET ANTICIPATED. WILL CONTINUE TO MONITOR AND ENDORSE TO AM SHIFT.
[2021-06-24 08:00] VITALS: BP 136/93
[2021-06-24] MEDS: AMLODIPINE 5 MG PO SCH (08:42)
[2021-06-24] MEDS: LORAZEPAM 1 MG TABLET FOR AGITATION/ANXIETY PO PRN (08:57)
[2021-06-24] MEDS: INVEST MED Kar XT OR PLACEBO 50/20 MG PO SCH ×2 (10:48→21:38)
--- NOTE | 2021-06-24 10:55 | NUR ---
Received pt. awake in her room, responsive to staffs, no distress and no agitation noted. Ate 100% for breakfast, compliant on meds, prn of ativan po given and investigationla meds given. Pt. went for smoking. Needs attended and will continue to monitor for safety.
[2021-06-24 16:00] VITALS: BP 128/84
--- NOTE | 2021-06-24 19:30 | NUR ---
RN NOTES : RECEIVED PATIENT RESTING IN HER ROOM, NO ACUTE DISTRESS NOTED. FLAT AFFECT, CALM COOPERTIVE NOTED ,ENCOURAGED PT. TO VERBALIZED ANY FEELING CONCERN, NO VERBALIZATION OF THOUGHTS AND FEELINGS. SAFETY PRECAUTIONS IN PLACE. WILL CONTINUE TO MONITOR Q15 FOR SAFETY, MOOD AND BEHAVIOR.
[2021-06-24 19:58] VITALS: BP 128/78
--- NOTE | 2021-06-25 06:23 | NUR ---
RN NOTES : PATIENT SLEPT 9 HOURS THIS SHIFT , PT. WENT OUT OF THE UNIT2 TIMES FOR SMOKE BREAKS THIS SHIFT , NO ACUTE DISTRESS NOTED, CALM COOPERTIVE NOTED ,ENCOURAGED PT. TO VERBALIZED ANY FEELING CONCERN, NO VERBALIZATION OF THOUGHTS AND FEELINGS. SAFETY PRECAUTIONS IN PLACE.ALL PT. CARE NEEDS HAVE BEEN MET ANTICIPATED ,WILL CONTINUE TO MONITOR Q15 FOR SAFETY, MOOD AND BEHAVIOR.
[2021-06-25 08:00] VITALS: BP_SYST 129; BP_SYST 137; BP_DIAS 84; BP_DIAS 86
[2021-06-25] MEDS: AMLODIPINE 5 MG PO SCH (08:18)
--- NOTE | 2021-06-25 09:10 | NUR ---
Received pt. awake in her room, responsive to staffs, no distress and no agitation noted. Ate 100% for breakfast, compliant on meds. Pt. went for smoking and needs attended Will continue to monitor for safety.
[2021-06-25] MEDS: INVEST MED Kar XT OR PLACEBO 50/20 MG PO SCH ×2 (10:05→21:16)
[2021-06-25] MEDS: LORAZEPAM 1 MG TABLET FOR AGITATION/ANXIETY PO PRN (12:10)
[2021-06-25 16:00] VITALS: BP 122/79
[2021-06-25 19:41] VITALS: BP 138/78
--- NOTE | 2021-06-26 06:22 | NUR ---
RN NOTES : PATIENT SLEPT 7 HOURS THIS SHIFT , PT. WENT OUT OF THE UNIT2 TIMES FOR SMOKE BREAKS THIS SHIFT , NO ACUTE DISTRESS NOTED, CALM COOPERTIVE NOTED ,ENCOURAGED PT. TO VERBALIZED ANY FEELING CONCERN, NO VERBALIZATION OF THOUGHTS AND FEELINGS. SAFETY PRECAUTIONS IN PLACE.ALL PT. CARE NEEDS HAVE BEEN MET ANTICIPATED ,WILL CONTINUE TO MONITOR Q15 FOR SAFETY, MOOD AND BEHAVIOR.
[2021-06-26 08:10] VITALS: BP 129/84
[2021-06-26] MEDS: AMLODIPINE 5 MG PO SCH (08:26)
[2021-06-26] MEDS: INVEST MED Kar XT OR PLACEBO 50/20 MG PO SCH ×2 (09:28→21:59)
[2021-06-26] MEDS: LORAZEPAM 1 MG TABLET FOR AGITATION/ANXIETY PO PRN (10:56)
[2021-06-26 16:00] VITALS: BP 127/80
[2021-06-26 20:00] VITALS: BP 144/89
--- NOTE | 2021-06-26 22:00 | NUR ---
gps rn note investigational drug given on time 2200.
[2021-06-27 08:00] VITALS: BP 137/78
[2021-06-27] MEDS: AMLODIPINE 5 MG PO SCH (08:02)
[2021-06-27] MEDS: INVEST MED Kar XT OR PLACEBO 50/20 MG PO SCH ×2 (10:01→22:13)
[2021-06-27] MEDS: LORAZEPAM 1 MG TABLET FOR AGITATION/ANXIETY PO PRN (11:12)
--- NOTE | 2021-06-27 11:13 | NUR ---
GPS RN NOTES PATIENT NOTED ANXIOUS AND REQUESTED FOR ATIVAN. PRN ATIVAN 1MG PO GIVEN AT 1112.
[2021-06-27 16:00] VITALS: BP 138/83
[2021-06-27 20:00] VITALS: BP 120/76
--- NOTE | 2021-06-27 20:00 | NUR ---
GPS RN NOTES: RECEIVED PATIENT IN ROOM, AWAKE, ALERT AND ORIENTED X3. NO S/SX OF ACUTE RESPIRATORY DISTRESS NOTED. PATIENT IS CALM AND COOPERATIVE TO CARE. PATIENT ADMITS TO AUDITORY HALLUCINATION AT TIMES. PATIENT DENIES ANY SI OR HI AT THIS TIME. PT IS CURRENTLY ON INVESTIGATIONAL MEDICATION WITH NO ADVERSE REACTIONS NOTED. SAFETY PRECAUTIONS IN PLACE. WILL CONTINUE TO MONITOR Q15MIN ROUNDS FOR SAFETY AND BEHAVIOR.
--- NOTE | 2021-06-28 06:11 | NUR ---
GPS-RN NOTES: PATIENT WENT OUT TO SMOKE.
[2021-06-28 08:00] VITALS: BP 122/82
[2021-06-28] MEDS: AMLODIPINE 5 MG PO SCH (08:55)
[2021-06-28] MEDS: INVEST MED Kar XT OR PLACEBO 50/20 MG PO SCH ×2 (09:59→21:58)
[2021-06-28] MEDS: LORAZEPAM 1 MG TABLET FOR AGITATION/ANXIETY PO PRN (11:01)
--- NOTE | 2021-06-28 11:04 | NUR ---
INFORMED DR VERAS OF PT'S PAINFUL CONSTIPATION. DR VERAS ORDERED STAT KUB, MIRALAX 17MG PO HS DAILY UNTIL BM. ORDERS PLACED. Addendum: 06/28/21 at 1107 by GRICELDA CONTRERAS RN DISREGARD NOTE. WRONG PATIENT.
--- NOTE | 2021-06-28 11:07 | NUR ---
PT ASKED FOR ATIVAN SHE FEELS ANXIOUS. ATIVAN GIVEN
[2021-06-28 16:12] VITALS: BP 134/89
--- NOTE | 2021-06-28 19:20 | NUR ---
RN OPENING NOTE RECEIVED PATIENT RESTING IN HER ROOM, A & O X 3, DENIES ANXIETY AT THIS TIME. NO ACUTE DISTRESS NOTED. CALM & COOPERATIVE NOTED, ENCOURAGED PT. TO VERBALIZED ANY FEELING CONCERN, NO VERBALIZATION OF THOUGHTS AND FEELINGS AT THIS TIME. AMBULATORY/STEADY. SAFETY PRECAUTIONS IN PLACE. WILL CONTINUE TO MONITOR Q15 FOR SAFETY, MOOD AND BEHAVIOR.
--- NOTE | 2021-06-28 19:30 | NUR ---
RN NOTE PATIENT WENT OUT OF GPS UNIT TO SMOKE.
--- NOTE | 2021-06-28 19:45 | NUR ---
RN NOTE PATIENT CAME BACK FROM SMOKE BREAK.
[2021-06-28 20:08] VITALS: BP 124/76
[2021-06-29 08:00] VITALS: BP 136/79
[2021-06-29] MEDS: AMLODIPINE 5 MG PO SCH (09:12)
--- NOTE | 2021-06-29 09:24 | NUR ---
RN NOTE: RECEIVED PT AMBULATING IN HALLWAY. NO ACUTE DISTRESS NOTED. PT IS CALM AND COOPERATIVE.A+OX3, ABLE TO MAKE NEEDS KNOWN. PT REPORTS AH, NON-COMMAND. COMPLIANT WITH MEDICATION ADMINISTRATION AND PLAN OF CARE. NO ADVERSE S/SX OF MEDICATIONS NOTED. PT IS VISIBLE ON THE UNIT. WILL CONT TO MONITOR PER GPS PROTOCOL
[2021-06-29] MEDS: INVEST MED Kar XT OR PLACEBO 50/20 MG PO SCH ×2 (10:09→22:21)
[2021-06-29] MEDS: LORAZEPAM 1 MG TABLET FOR AGITATION/ANXIETY PO PRN (13:11)
--- NOTE | 2021-06-29 13:11 | NUR ---
RN NOTE: ANXIETY PT C/O INCREASING ANXIETY. REQUESTING ATIVAN. ATIVAN 1MG PO PRN
--- NOTE | 2021-06-29 13:22 | NUR ---
RN NOTE: PT SITTING IN ROOM. NO ACUTE DISTRESS. MEDICATED WITH ATIVAN FOR ANXIETY. WELL GROOMED. AMBULATORY AND INDEPENDENT WITH ADLS. NO S/SX OF MEDICATION SIDE EFFECTS NOTED. WILL CONT TO MONITOR
[2021-06-29 16:04] VITALS: BP 123/81
[2021-06-29 20:22] VITALS: BP 147/80
--- NOTE | 2021-06-30 06:15 | NUR ---
RN NOTES : PATIENT SLEPT8 HOURS THIS SHIFT , PT. WENT OUT OF THE UNIT2 TIMES FOR SMOKE BREAKS THIS SHIFT , NO ACUTE DISTRESS NOTED, CALM COOPERTIVE NOTED ,ENCOURAGED PT. TO VERBALIZED ANY FEELING CONCERN, NO VERBALIZATION OF THOUGHTS AND FEELINGS. SAFETY PRECAUTIONS IN PLACE.ALL PT. CARE NEEDS HAVE BEEN MET ANTICIPATED ,WILL CONTINUE TO MONITOR Q15 FOR SAFETY, MOOD AND BEHAVIOR.
[2021-06-30 08:00] VITALS: BP 137/97
[2021-06-30] MEDS: AMLODIPINE 5 MG PO SCH (08:20)
[2021-06-30] MEDS: INVEST MED Kar XT OR PLACEBO 50/20 MG PO SCH ×2 (10:04→22:03)
--- NOTE | 2021-06-30 10:17 | NUR ---
RN-CO: PATIENT IS IN HER ROOM, PLEASANT AND COOPERATIVE. SHE STATED SHE STILL HEARS MUFFLED VOICES AND SEE HUMAN FIGURE (HALLUCINATION) ONCE IN A WHILE. SHE GOES OUT TO SMOKE, SHE DENIES PAIN AND DISCOMFORTS AND ADVERSE REACTIONS FROM THE INVESTIGATIONAL MEDS.
[2021-06-30] MEDS: LORAZEPAM 1 MG TABLET FOR AGITATION/ANXIETY PO PRN (10:40)
--- NOTE | 2021-06-30 10:42 | NUR ---
RN-CO: ATIVAN 1 MG PO GIVEN FOR C/O ANXIETY.
[2021-06-30 16:00] VITALS: BP 126/79
--- NOTE | 2021-06-30 19:47 | NUR ---
RN-NOTES RECEIVED LYING IN BED AWAKE,ALERT X4 CALM NO ACUTE DISTRESS NOTED.WILL CONT. MONITORING FOR SAFETY AND BEHAVIOR.
[2021-06-30 20:00] VITALS: BP 130/82
--- NOTE | 2021-07-01 06:52 | NUR ---
RN-NOTES PATIENT LYING IN BED AWAKE,ALERTX3 CALM NO ACUTE DISTRESS NOTED. ALL NEEDS ATTENDED AND ANTICIPATED. WILL ENDORSE TO INCOMING NURSE FOR CONTINUITY OF CARE AND MONITORING FOR SAFETY AND BEHAVIOR.
[2021-07-01 08:00] VITALS: BP 132/68
[2021-07-01] MEDS: AMLODIPINE 5 MG PO SCH (08:21)
[2021-07-01] MEDS: INVEST MED Kar XT OR PLACEBO 50/20 MG PO SCH ×2 (09:52→22:05)
--- NOTE | 2021-07-01 09:57 | NUR ---
Pt. went to doctor's office and being picked up by doctor's staff.
--- NOTE | 2021-07-01 14:14 | NUR ---
Pt. came back from the doctor's office. Pt. without distress
[2021-07-01] MEDS: LORAZEPAM 1 MG TABLET FOR AGITATION/ANXIETY PO PRN (15:29)
[2021-07-01 16:00] VITALS: BP 129/84
[2021-07-01 19:57] VITALS: BP 128/82
--- NOTE | 2021-07-01 20:00 | NUR ---
GPS RN NOTES: RECEIVED PATIENT IN HER ROOM, AWAKE, ALERT AND ORIENTED X3. NO S/SX OF ACUTE RESPIRATORY DISTRESS NOTED. PATIENT IS COOPERATIVE AND PLEASANT. PATIENT ADMITS TO AUDITORY HALLUCINATION AT TIMES. PATIENT DENIES ANY SI OR HI AT THIS TIME. PATIENT GOES OUT TO SMOKE. PT IS CURRENTLY ON INVESTIGATIONAL MEDICATION WITH NO ADVERSE REACTIONS NOTED. SAFETY PRECAUTIONS IN PLACE. WILL CONTINUE TO MONITOR Q15MIN ROUNDS FOR SAFETY AND BEHAVIOR.
[2021-07-02 08:00] VITALS: BP 137/77
[2021-07-02] MEDS: AMLODIPINE 5 MG PO SCH (09:13)
--- NOTE | 2021-07-02 09:59 | NUR ---
RN-CO: PATIENT IS COMPLAINT WITH MEDICATIONS. STILL HAS AUDITORY HALLUCINATIONS BUT SHE SAID "A LITTLE BETTER" SHE DENIES VISUAL HALLUCINATION TODAY.SHE GOES OUT TO SMOKE OFTEN. SHE SAID THERE IS NO ADVERSE AFFECT ON THE IP.
[2021-07-02] MEDS: INVEST MED Kar XT OR PLACEBO 50/20 MG PO SCH ×2 (10:06→21:54)
[2021-07-02] MEDS: LORAZEPAM 1 MG TABLET FOR AGITATION/ANXIETY PO PRN (13:37)
--- NOTE | 2021-07-02 13:37 | NUR ---
RN-CO: ATIVAN GIVEN FOR ANXIETY.
[2021-07-02 16:00] VITALS: BP 136/79
[2021-07-02 20:00] VITALS: BP 134/83
[2021-07-02 20:24] VITALS: BP 134/83
--- NOTE | 2021-07-02 21:50 | NUR ---
RN OPENING NOTE: RECEIVED PATIENT IN HER ROOM, AWAKE, ALERT AND ORIENTED X3. CALM & COOPERATIVE. NO S/SX OF ACUTE RESPIRATORY DISTRESS NOTED. PATIENT ADMITS TO AUDITORY HALLUCINATION AT TIMES, DENIES ANXIETY AND SI AT THIS TIME. PT IS CURRENTLY ON INVESTIGATIONAL MEDICATION WITH NO ADVERSE REACTIONS NOTED. TAKES SMOKE BREAKS. HAS GOOD PO INTAKE. SAFETY PRECAUTIONS IN PLACE. WILL CONTINUE TO MONITOR Q15MIN ROUNDS FOR SAFETY AND BEHAVIOR.
--- NOTE | 2021-07-03 05:03 | NUR ---
RN NOTE PATIENT IS SLEEPING COMFORTABLY AT THIS TIME. NO CHANGES NOTED.
--- NOTE | 2021-07-03 06:54 | NUR ---
GPS RN CLOSING NOTE; PATIENT SLEPT WELL AT NIGHT. DENIES ANY ANXIETY AT THIS TIME. CALM & COOPERATIVE. NO C/O PAIN VERBALIZED AT THIS TIME. ALL NEEDS MET. WILL ENDORSE TO AM RN FOR CONTINUITY OF CARE.
[2021-07-03 08:00] VITALS: BP 122/84
[2021-07-03] MEDS: AMLODIPINE 5 MG PO SCH (08:41)
--- NOTE | 2021-07-03 09:35 | NUR ---
RN OPENING NOTE: RECEIVED PATIENT IN HER ROOM RESTING IN BED AWAKE, ALERT AND ORIENTED X3. CALM & COOPERATIVE. NO S/SX OF ACUTE RESPIRATORY DISTRESS NOTED. PATIENT ADMITS TO AUDITORY HALLUCINATION AT TIMES, DENIES ANXIETY AND SI AT THIS TIME. PT TOOK HER MEDICATION WITH NO ADVERSE REACTIONS NOTED. TAKES SMOKE BREAKS. HAS GOOD PO INTAKE. SAFETY PRECAUTIONS IN PLACE. WILL CONTINUE TO MONITOR Q15MIN ROUNDS FOR SAFETY AND BEHAVIOR.
[2021-07-03] MEDS: INVEST MED Kar XT OR PLACEBO 50/20 MG PO SCH ×2 (10:31→22:05)
[2021-07-03 16:00] VITALS: BP 115/75
--- NOTE | 2021-07-03 18:01 | NUR ---
GPS RN CLOSING NOTE: PATIENT SITTING IN THE CHAIR IN HER ROOM DENIES ANY S/S DISTRESS DENIES JENNIFER VOICES , DENIES SI/HI AVH. WILL CONTINUE MONITORING INDORSE REPORT TO INCOMING SHIFT RN
[2021-07-03 20:00] VITALS: BP 138/86
[2021-07-03 20:02] VITALS: BP 138/86
--- NOTE | 2021-07-03 20:44 | NUR ---
GPS RN OPENING NOTE: RECEIVED PATIENT IN HER ROOM, AWAKE, ALERT AND ORIENTED X3. CALM & COOPERATIVE. NO S/SX OF ACUTE RESPIRATORY DISTRESS NOTED. PATIENT DENIES AUDITORY HALLUCINATION, DENIES ANXIETY AND SI AT THIS TIME. PT IS CURRENTLY ON INVESTIGATIONAL MEDICATION WITH NO ADVERSE REACTIONS NOTED. TAKES SMOKE BREAKS. HAS GOOD PO INTAKE. SAFETY PRECAUTIONS IN PLACE. WILL CONTINUE TO MONITOR Q15MIN ROUNDS FOR SAFETY AND BEHAVIOR.
--- NOTE | 2021-07-04 06:45 | NUR ---
GPS RN CLOSING NOTE; PATIENT SLEPT WELL AT NIGHT. DENIES ANY ANXIETY AND HALLUCINATIONS AT THIS TIME. CALM & COOPERATIVE. NO C/O PAIN VERBALIZED AT THIS TIME. ALL NEEDS MET. PATIENT WENT TO SMOKE & CAME BACK. WILL ENDORSE TO AM RN FOR CONTINUITY OF CARE.
[2021-07-04 08:00] VITALS: BP 131/93
--- NOTE | 2021-07-04 08:00 | NUR ---
RN NOTE: RECEIVED PT SITTING IN ROOM. NO ACUTE DISTRESS NOTED. VSS,AFEBRILE NO SOB NOTED. PT A+OX3, ABLE TO MAKE NEEDS KNOWN. PT IS ISOLATIVE AND WITHDRAWN. CALM AND COOPERATIVE. NO S/SX OF ADVERSE MEDICATION REACTION NOTED. COMPLIANT WITH CARE AND MEDICATION ADMINISTRATION. INDEPENDENT WITH ADLS AND PO INTAKE. WELL GROOMED. WILL CONT TO MONITOR PER PROTOCOL
[2021-07-04] MEDS: AMLODIPINE 5 MG PO SCH (09:10)
[2021-07-04] MEDS: INVEST MED Kar XT OR PLACEBO 50/20 MG PO SCH ×2 (09:10→22:00)
--- NOTE | 2021-07-04 13:30 | NUR ---
RN NOTE: vPT SITTING IN ROOM. NO ACUTE DISTRESS NOTED. PT A+OX3, ABLE TO MAKE NEEDS KNOWN. ISOLATIVE AND WITHDRAWN. DENIES AUDITORY HALLUCINATIONS CURRENTLY. COMPLIANT WITH MEDICATION ADMINISTRATION AND PLAN OF CARE. NO S/SX OF ADVERSE MEDICATION REACTION NOTED. AMBULATORY AND CONTINENT. WILL CONT TO MONITOR PER PROTOCOL
[2021-07-04] MEDS: LORAZEPAM 1 MG TABLET FOR AGITATION/ANXIETY PO PRN (15:25)
--- NOTE | 2021-07-04 15:26 | NUR ---
RN NOTE: ANXIETY PT C/O INCREASING ANXIETY. REQUESTING ATIVAN. ATIVAN 1MG PO PRN ADMINISTERED
[2021-07-04 16:00] VITALS: BP 129/64
[2021-07-04 20:00] VITALS: BP 136/80
--- NOTE | 2021-07-05 05:55 | NUR ---
gps rn note patient signed out for smoking break at this time.
[2021-07-05 08:00] VITALS: BP 135/78
[2021-07-05] MEDS: AMLODIPINE 5 MG PO SCH (08:34)
[2021-07-05] MEDS: INVEST MED Kar XT OR PLACEBO 50/20 MG PO SCH ×2 (09:17→21:53)
--- NOTE | 2021-07-05 09:34 | NUR ---
RN OPENING NOTE: RECEIVED PATIENT IN HER ROOM AWAKE, ALERT AND ORIENTED X3. CALM & COOPERATIVE. NO S/SX OF ACUTE RESPIRATORY DISTRESS NOTED. PATIENT ADMITS TO AUDITORY HALLUCINATION AT TIMES, DENIES ANXIETY AND SI AT THIS TIME. PT TOOK HER MEDICATION WITH NO ADVERSE REACTIONS NOTED. TAKES SMOKE BREAKS. HAS GOOD PO INTAKE. SAFETY PRECAUTIONS IN PLACE. WILL CONTINUE TO MONITOR Q15MIN ROUNDS FOR SAFETY AND BEHAVIOR.
[2021-07-05] MEDS: LORAZEPAM 1 MG TABLET FOR AGITATION/ANXIETY PO PRN (11:13)
--- NOTE | 2021-07-05 11:15 | NUR ---
RN NOTE: ANXIETY PT C/O ANXIETY . REQUESTING ATIVAN. ATIVAN 1MG PO PRN ADMINISTERED
[2021-07-05 16:00] VITALS: BP 125/66
[2021-07-05 20:00] VITALS: BP 128/68
--- NOTE | 2021-07-06 02:22 | NUR ---
at the beginning of the shift 2000 went outside to smoke returned in 10 minutes. cheerful and clean well kempt. made aware she needs to be here at 10pm when medication due and she is aware. when I asked her if she has any problems taking the medication does she feel different or good or bad. She stated "I feel nothing no different".
[2021-07-06 08:00] VITALS: BP 117/72
[2021-07-06] MEDS: AMLODIPINE 5 MG PO SCH (09:47)
[2021-07-06] MEDS: INVEST MED Kar XT OR PLACEBO 50/20 MG PO SCH ×2 (09:47→21:55)
--- NOTE | 2021-07-06 09:51 | NUR ---
RN-CO: RECEIVED PT AWAKE, DENIED PAIN AND DISCOMFORTS. SHE STATED THAT THE AUDITORY HALLUCINATIONS ARE GONE WELL THE ON AND OFF VISUAL HALLUCINATIONS. I WILL CONTINUE TO MONITOR.
[2021-07-06] MEDS: LORAZEPAM 1 MG TABLET FOR AGITATION/ANXIETY PO PRN (13:16)
--- NOTE | 2021-07-06 13:16 | NUR ---
RN-CO: ATIVAN 1 MG PO GIVEN FOR C/O ANXIETY.
[2021-07-06 16:00] VITALS: BP 120/72
[2021-07-06 19:53] VITALS: BP 125/64
--- NOTE | 2021-07-06 20:31 | NUR ---
GPS RN NOTES: RECEIVED PATIENT IN ROOM, AWAKE, ALERT AND ORIENTED X3. CALM AND COOPERATIVE, PASSIVE, GUARDED. DENIES SI, DENIES PAIN AT THIS TIME. RESPIRATION EVEN AND UNLABORED WITH EQUAL RISE AND FALL OF THE CHEST, ON ROOM AIR. WILL CONTINUE TO MONITOR Q15 FOR SAFETY, MOOD AND BEHAVIOR.
--- NOTE | 2021-07-07 06:58 | NUR ---
GPS RN CLOSING NOTES: PATIENT IS AWAKE, A/O X3. PATIENT SLEPT 8HRS THIS SHIFT. PATIENT WENT OUT OF THE UNIT 2 TIME FOR SMOKE BREAKS THIS SHIFT. NO BEHAVIORAL ISSUES THIS SHIFT. PATIENT HAS NO S/S OF DISTRESS. RESPIRATION EVEN AND UNLABORED WITH EQUAL RISE AND FALL OF THE CHEST, ON ROOM AIR. ALL PATIENT CARE NEEDS HAVE BEEN MET ANTICIPATED. WILL CONTINUE TO MONITOR AND ENDORSE TO AM SHIFT.
[2021-07-07 08:00] VITALS: BP 142/70
[2021-07-07] MEDS: AMLODIPINE 5 MG PO SCH (09:02)
[2021-07-07] MEDS: INVEST MED Kar XT OR PLACEBO 50/20 MG PO SCH ×2 (10:08→21:39)
[2021-07-07] MEDS: LORAZEPAM 1 MG TABLET FOR AGITATION/ANXIETY PO PRN (12:11)
--- NOTE | 2021-07-07 12:11 | NUR ---
RN NOTE: ANXIETY PT C/O INCREASING ANXIETY. REQUESTING ATIVAN. ATIVAN 1MG PO PRN ADMINISTERED
[2021-07-07 16:00] VITALS: BP 126/73
--- NOTE | 2021-07-07 19:30 | NUR ---
GPS RN NOTE, RECEIVED PATIENT AWAKE AND IN BED, NO S/S OR COMPLAINTS OF PAIN AT THIS TIME. PATIENT IS DISPLAYING NO S/S OF APPARENT DISTRESS AT THIS TIME. PATIENT BREATHING IS UNLABORED WITH EQUAL RISE AND FALL OF THE CHEST. PATIENT IS ALERT AND ORIENTED X 3 ON ROOM AIR WITH A SPO2 97%. PATIENT IS COMPLIANT WITH MEDICATIONS, CALM, AND COOPERATIVE. PATIENT DENIES SUICIDAL AND HOMICIDAL IDEATIONS AT THIS TIME. PATIENT EDUCATED ON THE USE OF THE CALL GARCIA. PATIENT BED SIDE RAILS UP X 2 FOR SAFETY. PATIENT BED IS LOCKED, LOW, WITH BED ALARM ON. WILL CONTINUE TO MONITOR THIS PATIENT Q15 MINUTES WITH THE HELP OF STAFF TO MAINTAIN SAFETY.
[2021-07-07 20:37] VITALS: BP 118/73
--- NOTE | 2021-07-07 21:39 | NUR ---
GPS RN NOTE, PATIENT STATES, " I AM SEEING LESS SHADOW PEOPLE EVER SINCE I STATED TAKING THIS NEW MEDICATION ". WILL CONTINUE TO MONITOR THIS PATIENT WITH THE HELP OF STAFF.
[2021-07-08 08:00] VITALS: BP 140/75
[2021-07-08] MEDS: AMLODIPINE 5 MG PO SCH (08:17)
[2021-07-08] MEDS: INVEST MED Kar XT OR PLACEBO 50/20 MG PO SCH ×2 (09:55→21:57)
[2021-07-08 16:00] VITALS: BP 125/71
--- NOTE | 2021-07-08 19:30 | NUR ---
GPS RN NOTE, RECEIVED PATIENT AWAKE AND IN BED, NO S/S OR COMPLAINTS OF PAIN AT THIS TIME. PATIENT IS DISPLAYING NO S/S OF APPARENT DISTRESS AT THIS TIME. PATIENT BREATHING IS UNLABORED WITH EQUAL RISE AND FALL OF THE CHEST. PATIENT IS ALERT AND ORIENTED X 3 ON ROOM AIR WITH A SPO2 99%. PATIENT IS COMPLIANT WITH MEDICATIONS, CALM, AND COOPERATIVE. PATIENT STATES, " I FEEL GREAT AND I'M NOT SEE THE SHADOW PEOPLE MUCH ANY MORE". PATIENT DENIES SUICIDAL AND HOMICIDAL IDEATIONS AT THIS TIME. PATIENT EDUCATED ON THE USE OF THE CALL GARCIA. PATIENT BED SIDE RAILS UP X 2 FOR SAFETY. PATIENT BED IS LOCKED, LOW, WITH BED ALARM ON. WILL CONTINUE TO MONITOR THIS PATIENT Q15 MINUTES WITH THE HELP OF STAFF TO MAINTAIN SAFETY.
[2021-07-08 20:49] VITALS: BP 117/70
[2021-07-09 08:00] VITALS: BP 125/80
[2021-07-09] MEDS: AMLODIPINE 5 MG PO SCH (08:11)
[2021-07-09] MEDS: INVEST MED Kar XT OR PLACEBO 50/20 MG PO SCH ×2 (10:26→22:02)
--- NOTE | 2021-07-09 10:37 | NUR ---
Received pt. awake in her room, responsive to staffs, no distress and no agitation noted. Ate 100% for breakfast, compliant on meds. Needs attended and will continue to monitor for safety
[2021-07-09 16:00] VITALS: BP 132/83
[2021-07-09] MEDS: LORAZEPAM 1 MG TABLET FOR AGITATION/ANXIETY PO PRN (16:37)
--- NOTE | 2021-07-09 19:30 | NUR ---
GPS RN NOTE, RECEIVED PATIENT AWAKE AND IN BED, NO S/S OR COMPLAINTS OF PAIN AT THIS TIME. PATIENT IS DISPLAYING NO S/S OF APPARENT DISTRESS AT THIS TIME. PATIENT BREATHING IS UNLABORED WITH EQUAL RISE AND FALL OF THE CHEST. PATIENT IS ALERT AND ORIENTED X 3 ON ROOM AIR WITH A SPO2 99%. PATIENT IS COMPLIANT WITH MEDICATIONS, CALM, AND COOPERATIVE. PATIENT STATES, " I FEEL GREAT TODAY NO SHADOW PEOPLE TODAY". PATIENT DENIES SUICIDAL AND HOMICIDAL IDEATIONS AT THIS TIME. PATIENT EDUCATED ON THE USE OF THE CALL GARCIA. PATIENT BED SIDE RAILS UP X 2 FOR SAFETY. PATIENT BED IS LOCKED, LOW, WITH BED ALARM ON. WILL CONTINUE TO MONITOR THIS PATIENT Q15 MINUTES WITH THE HELP OF STAFF TO MAINTAIN SAFETY.
[2021-07-09 20:05] VITALS: BP 118/57
--- NOTE | 2021-07-09 22:00 | NUR ---
GPS RN NOTE, PATIENT STATES, " I STARTED TO SEE THE SHADOW PEOPLE AGAIN INSTEAD OF SEEING FOUR OF THEM USUALLY I ONLY SEE TWO SHADOW PEOPLE RIGHT KNOW, BUT THEY DON'T SAY ANYTHING ". WILL CONTINUE TO MONITOR THIS PATIENT.
[2021-07-10 08:00] VITALS: BP 146/90
[2021-07-10] MEDS: AMLODIPINE 5 MG PO SCH (08:51)
--- NOTE | 2021-07-10 09:49 | NUR ---
RN-CO:PATIENT IS AWAKE, DENIES PAIN AND DISCOMFORTS. PT TOOK HER 0900 MEDICATION AND AT 10 I WILL GIVE HER INVESTIGATIOMAL MEDS. SHE SAID THAT THE AUDITORY AND VISUAL HALLUCINATIONS GOT BETTER SINCE SHE TOOK THE ID. SHE REMAINS TO DENIED ADVERSE EFFECT OF MEDICATION.
[2021-07-10] MEDS: INVEST MED Kar XT OR PLACEBO 50/20 MG PO SCH ×2 (09:56→22:02)
[2021-07-10 16:00] VITALS: BP 139/84
[2021-07-10] MEDS: LORAZEPAM 1 MG TABLET FOR AGITATION/ANXIETY PO PRN (18:55)
--- NOTE | 2021-07-10 18:55 | NUR ---
RN-CO: ATIVAN 1 MG PO GIVEN FOR C/O ANXIETY.
--- NOTE | 2021-07-10 19:30 | NUR ---
RN NOTES: RECEIVED PATIENT RESTING IN HER ROOM, NO ACUTE DISTRESS NOTED. FLAT AFFECT, CALM COOPERTIVE NOTED, PER PT. FEELING BETTER TODAY NO SHADOW PEOPLE TODAY , DENIES SI HI AT THIS TIME ,ENCOURAGED PT. TO VERBALIZED ANY FEELING CONCERN, NO VERBALIZATION OF THOUGHTS AND FEELINGS. SAFETY PRECAUTIONS IN PLACE. WILL CONTINUE TO MONITOR Q15 FOR SAFETY, MOOD AND BEHAVIOR.
[2021-07-10 20:00] VITALS: BP 136/80
[2021-07-11 08:14] VITALS: BP 129/80
[2021-07-11] MEDS: AMLODIPINE 5 MG PO SCH (08:51)
--- NOTE | 2021-07-11 09:00 | NUR ---
RN NOTE- PT IS ALERT ORIENTED MED COMPLIANT, IN ROOM WITHDRAWN LISTENING TO MUSIC , AFFECT APPROPRIATE. PO INTAKE GOOD. CLEAN GROOMED .
[2021-07-11] MEDS: LORAZEPAM 1 MG TABLET FOR AGITATION/ANXIETY PO PRN (10:22)
--- NOTE | 2021-07-11 10:24 | NUR ---
RN NOTE- C/O ANXIETY. ATIVAN GIVEN AT THIS TIME
[2021-07-11] MEDS: INVEST MED Kar XT OR PLACEBO 50/20 MG PO SCH ×2 (10:37→21:50)
[2021-07-11 16:23] VITALS: BP 138/74
[2021-07-11 20:00] VITALS: BP 115/69
--- NOTE | 2021-07-11 20:12 | NUR ---
GPS-RN NOTES: RECEIVED PATIENT IN HER ROOM, AWAKE, ALERT AND ORIENTED X3. NO S/SX OF ACUTE RESPIRATORY DISTRESS NOTED. PATIENT IS COOPERATIVE AND PLEASANT. PT DENIES ANY SI/HI AT THIS TIME. DENIES AUDITORY HALLUCINATIONS. PATIENT IS ANXIOUS AND REQUESTED TO GO OUT FOR SMOKING PRIVILEGES. PT IS CURRENTLY ON INVESTIGATIONAL MEDICATION WITH NO ADVERSE REACTIONS NOTED. SAFETY PRECAUTIONS IN PLACE. WILL CONTINUE TO MONITOR Q15MIN ROUNDS FOR SAFETY AND BEHAVIOR.
[2021-07-12 08:00] VITALS: BP 131/90
[2021-07-12] MEDS ORDERED: AMLODIPINE BESYLATE 5 MG TABLET PO SCH (09:00)
--- NOTE | 2021-07-12 09:27 | NUR ---
RN NOTE: RECEIVED PT LYING IN BED. NO ACUTE DISTRESS NOTED. VSS,AFEBRILE NO SOB NOTED. PT A+OX3, ABLE TO MAKE NEEDS KNOWN. PT IS ISOLATIVE AND WITHDRAWN. DENIES SI/HI/AH/VH. INDEPENDENT WITH ADLS AND PO INTAKE. COMPLIANT WITH MEDICATION ADMINISTRATION AND PLAN OF CARE. WELL GROOMED. NO S/SX OF ADVERSE MEDICATION REACTION. WILL CONT TO MONITOR PER PROTOCOL
[2021-07-12] MEDS: AMLODIPINE 5 MG PO SCH (09:35)
[2021-07-12] MEDS: INVEST MED Kar XT OR PLACEBO 50/20 MG PO SCH ×2 (09:37→21:26)
[2021-07-12 16:00] VITALS: BP 114/74
[2021-07-13 08:00] VITALS: BP 124/82
[2021-07-13] MEDS: AMLODIPINE 5 MG PO SCH (08:02)
--- NOTE | 2021-07-13 09:12 | NUR ---
RN-CO: RECEIVED PATIENT AWAKE IN ELATED MOOD, SHE IS COMPLIANT TO MEDICATIONS AND HOSPITAL RULES. SHE STATED THAT HER AUDITORY/VISUAL HALLUCINATION IS BETTER SINCE SHE TAKE THE INVESTIGATIONAL MEDICATIONS. SHE DENIED ADVERSE REACTIONS.PT IS WELL GROOMED AND GOES OUT Q 2 HOURS TO SMOKE OUTSIDE.
[2021-07-13] MEDS: INVEST MED Kar XT OR PLACEBO 50/20 MG PO SCH ×2 (09:54→21:38)
[2021-07-13 16:00] VITALS: BP 127/72
[2021-07-13 21:27] VITALS: BP 136/81
--- NOTE | 2021-07-13 22:53 | NUR ---
GPS/BEAM SEALER NOTES: PT. IN HER ROOM AWAKE. NO DISTRESS OR AGITATION NOTED. QUIET AND CALM. COOPERATIVE. STAYS IN HER ROOM AND GOES OUT FOR SMOKE. NO C/O PAIN OR DISCOMFORT. SAFETY ENVIRONMENT OBSERVED AT ALL TIMES. WILL CONTINUE TO MONITOR Q 15 MIN FOR SAFETY AND BEHAVIOR.
[2021-07-14 08:00] VITALS: BP 124/94
[2021-07-14] MEDS: AMLODIPINE 5 MG PO SCH (08:27)
[2021-07-14] MEDS: INVEST MED Kar XT OR PLACEBO 50/20 MG PO SCH ×2 (09:59→22:00)
[2021-07-14] MEDS ORDERED: ZOLPIDEM TARTRATE 10 MG TABLET PO PRN (13:00)
[2021-07-14] MEDS ORDERED: LORAZEPAM 1 MG TABLET FOR AGITATION/ANXIETY PO PRN (13:00)
[2021-07-14 16:00] VITALS: BP 135/69
--- NOTE | 2021-07-14 20:08 | NUR ---
RN OPENING NOTE: RECEIVED PATIENT IN HER ROOM, AWAKE, ALERT AND ORIENTED X3. CALM & COOPERATIVE. NO S/SX OF ACUTE RESPIRATORY DISTRESS NOTED. DENIES AUDITORY HALLUCINATION, DENIES ANXIETY AND SI AT THIS TIME. PT IS CURRENTLY ON INVESTIGATIONAL MEDICATION WITH NO ADVERSE REACTIONS NOTED. TAKES SMOKE BREAKS. SAFETY PRECAUTIONS IN PLACE. WILL CONTINUE TO MONITOR Q15MIN ROUNDS FOR SAFETY AND BEHAVIOR.
--- NOTE | 2021-07-14 20:50 | NUR ---
ms yoseph note v/s as follows upon transfer: bp- 134/85, hr- 97, rr-18, t- 98.9, o2 saturation 96%, wt- 209 lbs.
--- NOTE | 2021-07-14 20:50 | NUR ---
ms rn note patient transferred at this time. no s/s of apparent distress. no c/o pain. a/ox3. ambulatory. no fluids running. safety in place. will give investigational drug on time.
--- NOTE | 2021-07-14 20:58 | NUR ---
RN NOTE: TRANSFERRED TO ROOM 319 MS 3W PATIENT WAS TRANSFERRED TO MS 3 W ROOM 319 IN STABLE CONDITION WITH THE HELP OF STAFF USING PROTOCOL. REPORT WAS GIVEN TO FELIZ PABLO. ALL BELONGINGS WERE TRANSFERRED WITH THE PATIENT WELL.
[2021-07-14 21:00] VITALS: BP 134/85
--- NOTE | 2021-07-15 07:17 | NUR ---
RN CLOSING NO SIGNIFICANT CHANGE SINCE LAST NIGHT. ENDORSED CARE TO GABBIE FOR CONT. OF CARE.
--- NOTE | 2021-07-15 07:30 | NUR ---
MS RN NOTES RECEIVED PATIENT SITTING ON A CHAIR BEDSIDE, ALERT AND ORIENTED X 4. IN NO ACUTE DISTRESS NOTED. NO IV ACCESS. NO S/SX OF AKATISHA NOTED AT THIS TIME. SAFETY MEASURES IN PLACE: BED ON LOWEST LOCKED POSITION, SIDE RAILS UP X 2, CALL LIGHT WITHIN EASY REACH. WILL CONTINUE TO MONITOR ACCORDINGLY.
[2021-07-15 08:00] VITALS: BP 124/80
[2021-07-15] MEDS: AMLODIPINE 5 MG PO SCH (08:59)
[2021-07-15] MEDS: INVEST MED Kar XT OR PLACEBO 50/20 MG PO SCH ×2 (10:00→22:00)
--- NOTE | 2021-07-15 18:34 | NUR ---
MS RN CLOSING NOTES PATIENT SITTING ON A CHAIR AT BEDSIDE, ALERT AND ORIENTED X 4. IN NO ACUTE DISTRESS NOTED. NO IV ACCESS. NO S/SX OF AKATISHA NOTED AT THIS TIME. SAFETY MEASURES IN PLACE: BED ON LOWEST LOCKED POSITION, SIDE RAILS UP X 2, CALL LIGHT WITHIN EASY REACH. ALL NEEDS ATTENDED AND MET. DUE MEDS GIVEN ORDERED. WILL ENDORSE TO ONCOMING SHIFT FOR RANDOLPH.
--- NOTE | 2021-07-15 19:30 | NUR ---
MS RN OPENING NOTE RECEIVED PT SITTING ON A CHAIR AT BEDSIDE. A/O X4. PT IS STABLE ON ROOM AIR. NO SOB OR S/S OF RESPIRATORY DISTRESS NOTED. NO IV ACCESS D/T CLINICAL TRIAL STATUS. NO S/SX OF AKATHISIA NOTED AT THIS TIME. SAFETY PRECAUTIONS MAINTAINED. BED IN LOWEST LOCKED POSITION, HOB ELEVATED, SIDE RAILS UP X2. CALL LIGHT AND TABLE WITHIN REACH. WILL CONTINUE WITH PLAN OF CARE.
[2021-07-15 20:00] VITALS: BP 133/76
--- NOTE | 2021-07-16 06:22 | NUR ---
MS RN CLOSING NOTE PT IS IN BED WITH EYES CLOSED, AROUSABLE TO STIMULATION. A/O X4. PT IS STABLE ON ROOM AIR. NO SOB OR S/S OF RESPIRATORY DISTRESS NOTED. NO IV ACCESS D/T CLINICAL TRIAL STATUS. NO S/S OF AKATHISIA NOTED AT THIS TIME. ALL NEEDS HAVE BEEN MET. SAFETY PRECAUTIONS MAINTAINED AT ALL TIMES. BED IN LOWEST LOCKED POSITION, HOB ELEVATED, SIDE RAILS UP X2. CALL LIGHT AND TABLE WITHIN REACH. WILL ENDORSE TO ONCOMING NURSE FOR RANDOLPH.
--- NOTE | 2021-07-16 07:30 | NUR ---
received pt. in rm. alert and oriented x4,vs stable,no acute distress.
[2021-07-16 08:00] VITALS: BP 130/89
[2021-07-16] MEDS: AMLODIPINE 5 MG PO SCH (09:17)
[2021-07-16] MEDS: INVEST MED Kar XT OR PLACEBO 50/20 MG PO SCH ×2 (10:23→21:53)
[2021-07-16 16:07] VITALS: BP 109/70
--- NOTE | 2021-07-16 18:00 | NUR ---
down to smoke occassionally.no acute distress. med compliant.
--- NOTE | 2021-07-16 19:25 | NUR ---
RN OPENING NOTE RECEIVED PT RESTING IN BED, LYING ON HER R-SIDE, EASILY AROUSABLE TO STIMULI. A/OX4. DENIES ANY PAIN OR DISCOMFORT. ON ROOM AIR AND TOLERATING WELL. NO SOB. NO S/S OF AKATHISIA, NO C/O TREMORS. PT IN NO ACUTE DISTRESS. SAFETY MEASURES IN PLACE, BED IN LOWEST LOCKED POSITION, S/R UP X2, CALL LIGHT WITHIN EASY REACH. WILL CONTINUE TO MONITOR.
[2021-07-16 20:00] VITALS: BP 115/71
--- NOTE | 2021-07-16 22:05 | NUR ---
RN NOTE PT WENT DOWN TO SMOKE
--- NOTE | 2021-07-17 02:10 | NUR ---
RN NOTE PT STATES, "I WENT DOWN TO GET SOME SNACKS"
--- NOTE | 2021-07-17 05:50 | NUR ---
RN NOTE PT WENT DOWN TO "LAUNDRY AND SMOKE"
--- NOTE | 2021-07-17 06:45 | NUR ---
RN CLOSING NOTES PT RESTING IN BED, EASILY AWAKENS TO STIMULI. A/OX4. DENIES ANY PAIN OR DISCOMFORT. NO SOB. SLEEPS INTERMITTENTLY DURING THE SHIFT, GOES DOWN TO SMOKE OR GET SNACKS. PT IN NO ACUTE DISTRESS. SAFETY MEASURES MAINTAINED, BED IN LOWEST LOCKED POSITION, S/R UP X2, CALL LIGHT WITHIN REACH. WILL ENDORSE TO NEXT SHIFT NURSE.
--- NOTE | 2021-07-17 07:21 | NUR ---
RN OPENING NOTE- RECEIVED PT WALKING IN [place]. A/OX4. DENIES SI HI AH VH, INTERACTIVE AFFECT APPROPRIATE DENIES ANY PAIN OR DISCOMFORT. ON ROOM AIR AND TOLERATING WELL. NO SOB. PT IN NO ACUTE DISTRESS. SAFETY MEASURES IN PLACE, BED IN LOWEST LOCKED POSITION, S/R UP X2, CALL LIGHT WITHIN EASY REACH. WILL CONTINUE TO MONITOR.
[2021-07-17 08:00] VITALS: BP 120/69
[2021-07-17] MEDS: AMLODIPINE 5 MG PO SCH (08:49)
[2021-07-17] MEDS: INVEST MED Kar XT OR PLACEBO 50/20 MG PO SCH ×2 (09:08→22:03)
--- NOTE | 2021-07-17 12:54 | NUR ---
RN NOTE- C/O RESTLESSNESS AND ANXIETY. ATIVAN 1 MG ADMINISTERED.
--- NOTE | 2021-07-17 13:55 | NUR ---
RN NOTE- ATIVAN EFFECTIVE . PT CALM
[2021-07-17 16:00] VITALS: BP 118/82
--- NOTE | 2021-07-17 18:27 | NUR ---
RN CLOSING NOTE- PT IS A/OX4. DENIES SI HI AH VH, INTERACTIVE AFFECT APPROPRIATE DENIES ANY PAIN OR DISCOMFORT. ON ROOM AIR AND TOLERATING WELL. NO SOB. PT IN NO ACUTE DISTRESS. SAFETY MEASURES IN PLACE, BED IN LOWEST LOCKED POSITION, S/R UP X2, CALL LIGHT WITHIN EASY REACH. REPORT TO NOC SHIFT FOR CONTINUITY OF CARE
--- NOTE | 2021-07-17 19:18 | NUR ---
RN OPENING NOTES RECEIVED PT SITTING UP IN CHAIR IN ROOM, A/OX4, DENIES ANY PAIN OR DISCOMFORT. RESP EVEN AND UNLABORED. DENIES SOB. DENIES AKATHISIA/TREMORS. NO ACUTE DISTRESS NOTED. SAFETY MEASURES IN PLACE, BED IN LOWEST LOCKED POSITION, S/R UP X2, CALL LIGHT WITHIN REACH. WILL CONTINUE TO MONITOR.
[2021-07-17 20:00] VITALS: BP 119/79
--- NOTE | 2021-07-18 07:25 | NUR ---
RN CLOSING NOTES PT AWAKE, A/OX4. DENIES ANY PAIN OR DISCOMFORT. NO SOB. SLEEPS INTERMITTENTLY DURING THE SHIFT, GOES DOWN TO SMOKE OR GET SNACKS. PT IN NO ACUTE DISTRESS. ALL NEEDS ATTENDED TO. SAFETY MEASURES MAINTAINED, BED IN LOWEST LOCKED POSITION, S/R UP X2, CALL LIGHT WITHIN REACH. ENDORSED TO NEXT SHIFT NURSE.
--- NOTE | 2021-07-18 08:00 | NUR ---
m/s storage battery inspector: notes received pt in bed awake, a/ox4. no c/o pain or any discomfort. no distress noted. instructed to call for assistance. will continue to monitor.
[2021-07-18 08:19] VITALS: BP 132/98
[2021-07-18] MEDS: AMLODIPINE 5 MG PO SCH (09:50)
[2021-07-18] MEDS: INVEST MED Kar XT OR PLACEBO 50/20 MG PO SCH ×2 (09:50→21:54)
--- NOTE | 2021-07-18 11:45 | NUR ---
m/s dietetics professor: notes lunch served. instructed to call for assistance. will continue to monitor.
[2021-07-18 16:17] VITALS: BP 139/80
--- NOTE | 2021-07-18 17:00 | NUR ---
m/s fixed income manager: notes dinner served. no distress noted. instructed to call for assistance.
--- NOTE | 2021-07-18 19:15 | NUR ---
m/s cio: notes report given to jazmin (rn) for continuity of care.
--- NOTE | 2021-07-18 19:44 | NUR ---
RN OPENING NOTES received pt in bed awake, a/ox4. no c/o pain or any discomfort. no distress noted. instructed to call for assistance. will continue to monitor.
[2021-07-18 20:00] VITALS: BP 115/67
[2021-07-18 22:00] VITALS: BP 115/67
--- NOTE | 2021-07-19 06:29 | NUR ---
RN NOTES pt in bed awake, a/ox4. no c/o pain or any discomfort. no distress noted. will endorse care to day shift nurse.
[2021-07-19 08:00] VITALS: BP 116/78
[2021-07-19 08:05] VITALS: BP 116/78
[2021-07-19] MEDS: AMLODIPINE 5 MG PO SCH (08:49)
[2021-07-19] MEDS: INVEST MED Kar XT OR PLACEBO 50/20 MG PO SCH ×2 (10:00→21:59)
[2021-07-19 16:00] VITALS: BP 123/76
--- NOTE | 2021-07-19 18:22 | NUR ---
MS RN CLOSING NOTES PATIENT IN BED, AWAKE, A&O X 4, ON ROOM AIR TOLERATING WELL, NO SOB, IN NO ACUTE RESPIRATORY DISTRESS NOTED. NO IV ACCESS NOTED/ SAFETY PRECAUTIONS IN PLACE: BED ON LOWEST LOCKED POSITION, SIDE RAILS UP X 2, KEPT CALL LIGHT WITHIN EASY REACH. PATIENT IS SELF AMBULATORY. NO AKATISHA/TREMORS, EPS, PSYCH INSTABILITY NOTED. ALL NEEDS ATTENDED AND MET. DUE MEDS GIVEN ORDERED. WILL ENDORSE TO ONCOMING SHIFT FOR RANDOLPH.
--- NOTE | 2021-07-19 19:35 | NUR ---
DU BILLYEEYosef PROVIDED QUIET ENVI TO CONTINUE
[2021-07-19 20:00] VITALS: BP 129/77
--- NOTE | 2021-07-19 21:40 | NUR ---
MSRN JUST GOT BACK TO ROOM DUE MED ADMINISTERED ORDERED AT 2200. NO OTHER NEEDS MADE, REMINDED TO CALL STAFF FOR ANY ASSISTANCE OR DISCOMFORTS, SAFETY PRECAUTIONS EMPHASIZED, WELL UNDERSTOOD.
--- NOTE | 2021-07-20 06:20 | NUR ---
MSRN SEEN AMBULATING ON HALLWAYS, STATED SLEPT FOR A BIT PATIENT STATED. DID NOT MENTION NUMBER OF HOURS. WENT BACK TO ROOM, STABLE. REMAINS COOPERATIVE AND CALM.
--- NOTE | 2021-07-20 07:26 | NUR ---
RN OPENING NOTE- PT IN BED A/OX4. DENIES SI HI AH VH, INTERACTIVE AFFECT APPROPRIATE DENIES ANY PAIN OR DISCOMFORT. ON ROOM AIR AND TOLERATING WELL. NO SOB. PT IN NO ACUTE DISTRESS. SAFETY MEASURES IN PLACE, BED IN LOWEST LOCKED POSITION, S/R UP X2, CALL LIGHT WITHIN EASY REACH. WILL CONTINUE TO MONITOR.
[2021-07-20 08:00] VITALS: BP 117/85
[2021-07-20] MEDS: AMLODIPINE 5 MG PO SCH (08:16)
[2021-07-20] MEDS: INVEST MED Kar XT OR PLACEBO 50/20 MG PO SCH ×2 (09:36→21:59)
[2021-07-20 15:53] VITALS: BP 96/62
--- NOTE | 2021-07-20 18:29 | NUR ---
RN CLOSING NOTE- UNCHANGED. MED COMPLIANT. NEEDS ATTENDED. PT IN ROOM A/OX4. DENIES SI HI AH VH, INTERACTIVE AFFECT APPROPRIATE DENIES ANY PAIN OR DISCOMFORT. ON ROOM AIR AND TOLERATING WELL. NO SOB. PT IN NO ACUTE DISTRESS. SAFETY MEASURES IN PLACE, BED IN LOWEST LOCKED POSITION, S/R UP X2, CALL LIGHT WITHIN EASY REACH. WILL CONTINUE TO MONITOR. REPORT TO BE GIVEN TO NOC SHIFT RN
--- NOTE | 2021-07-20 19:30 | NUR ---
MS RN OPENING NOTE RECEIVED PT AWAKE IN BED, A/OX4 ON ROOM AIR, NO S/S OR COMPLAINTS OF PAIN AT THIS TIME. NO S./S OF APPARENT DISTRESS AT THIS TIME. DENIES SI/HI. EDUCATED PT ON THE USE OF CALL LIGHT. BEDSIDE RAILS UP X2, BED IS LOW AND LOCKED FOR SAFETY, TABLE WITHIN REACH. WILL CONTINUE TO MONITOR PT.
[2021-07-20 20:00] VITALS: BP 118/70
--- NOTE | 2021-07-21 06:51 | NUR ---
MS RN CLOSING NOTE PT IS IN BED AWAKE. A/OX4. STABLE ON ROOM AIR. NO SOB OR RESPIRATORY DISTRESS NOTED THROUGH SHIFT.ALL NEEDS HAVE BEEN MET. ALL CARE, NEEDS, MEDICATIONS, ADMINISTERED ANTICIPATED PER ORDER.PT DENIES SI/HI SAFETY, SEIZURE, AND ASPIRATION PRECAUTIONS MAINTAINED AT ALL TIMES. BED IN LOWEST LOCKED POSITION, HOB ELEVATED, SIDE RAILS UP X2, CALL LIGHT AND TABLE WITHIN REACH. WILL ENDORSE TO ONCOMING NURSE.
--- NOTE | 2021-07-21 07:31 | NUR ---
MS RN OPENING NOTES RECEIVED PATIENT AWAKE SITTING IN CHAIR. ALERT AN ORIENTED X 4. NOT IN ANY APPARENT DISTRESS. BREATHING IS EVEN AND UNLABORED. TOLERATING WELL ON ROOM AIR. SAFETY MEASURES IN PLACE WITH BED LOCKED AT LOW POSITION AND SIDE RAILS UP X2. CALL LIGHT IS WITHIN REACH. WILL CONTINUE TO MONITOR THROUGHOUT SHIFT.
[2021-07-21 08:13] VITALS: BP 129/80
[2021-07-21] MEDS: AMLODIPINE 5 MG PO SCH (08:37)
--- NOTE | 2021-07-21 08:48 | NUR ---
MS RN NOTE PATIENT LEFT UNIT AT THIS TIME. AWARE SHE NEEDS TO COME BACK BY 1000 FOR INVESTIGATIONAL DRUG. AWARE SHE MUST HAVE NPO 1 HOUR BEFORE INVESTIGATIONAL DRUG.
--- NOTE | 2021-07-21 10:26 | NUR ---
MS RN NOTE PATIENT IS STILL NOT BACK IN UNIT
[2021-07-21] MEDS: INVEST MED Kar XT OR PLACEBO 50/20 MG PO SCH ×2 (10:41→21:23)
--- NOTE | 2021-07-21 10:41 | NUR ---
MS RN NOTE RETURNED BACK TO UNIT. PATIENT GIVEN INVESTIGATIONAL DRUG. AWARE SHE NEEDS TO STAY IN UNIT AROUND INVESTIGATIONAL DRUG SCHEDULED TIME.
[2021-07-21 17:44] VITALS: BP 122/74
--- NOTE | 2021-07-21 19:21 | NUR ---
MS RN CLOSING NOTES PATIENT AWAKE IN CHAIR, RESTING. NOT IN ANY APPARENT DISTRESS. NO CHANGES THROUGHOUT SHIFT. TOLERATING WELL ON ROOM AIR. ALL NEEDS MET. SAFETY MEASURES MAINTAINED. CALL LIGHT IS WITHIN REACH. WILL ENDORSE CONTINUITY OF CARE TO ONCOMING SHIFT.
--- NOTE | 2021-07-21 19:30 | NUR ---
CONTINUITY OF CARE Patient is Alert to self only, confused. IVF infusing. Vines cath in place. Turned and repositioned, patient is Total care, does not follow commands. Right foot 3rd toe discoloration, offload. Will cont to provide care. Addendum: 07/21/21 at 2021 by MARIALUISA JOHNSON RN ERROR NOTES ABOVE. Please disregard.
[2021-07-21 19:58] VITALS: BP 119/86
--- NOTE | 2021-07-21 20:22 | NUR ---
CONTINUITY OF CARE Patient in bed, awake. On clinical Trial study medications. Patient is A/O x4, calm, no agitation. No c/o pain at this time, denies any discomfort. Will cont to provide care.
[2021-07-21 20:39] VITALS: BP 119/86
--- NOTE | 2021-07-22 06:30 | NUR ---
END OF SHIFT REPORT Patient is A/O x4. Hours of sleep 6 per patient. No agitation, calm. Compliant with medication. No c/o pain, or any discomfort. Remains on Clinical Trial Study medication. Will endorse to oncoming RN.
--- NOTE | 2021-07-22 07:31 | NUR ---
RN OPENING NOTE- PT AWAKE IN ROOM. ALERT AND ORIENTED X 4. NOT IN ANY APPARENT DISTRESS. BREATHING IS EVEN AND UNLABORED. TOLERATING WELL ON ROOM AIR. SAFETY MEASURES IN PLACE WITH BED LOCKED AT LOW POSITION AND SIDE RAILS UP X2. CALL LIGHT IS WITHIN REACH. WILL CONTINUE TO MONITOR THROUGHOUT SHIFT.
[2021-07-22 08:31] VITALS: BP 132/92
[2021-07-22] MEDS: AMLODIPINE 5 MG PO SCH (09:03)
[2021-07-22] MEDS: INVEST MED Kar XT OR PLACEBO 50/20 MG PO SCH ×2 (09:38→21:46)
[2021-07-22] MEDS: LORAZEPAM 1 MG TABLET FOR AGITATION/ANXIETY PO PRN (11:03)
--- NOTE | 2021-07-22 11:03 | NUR ---
RN NOTE- PT ANXIOUS . REQUESTING PRN. ATIVAN 1 MG ADMINISTERED
[2021-07-22 16:04] VITALS: BP 128/73
--- NOTE | 2021-07-22 18:35 | NUR ---
RN CLOSING NOTE- PT AWAKE IN ROOM. ALERT AND ORIENTED X 4. NOT IN ANY APPARENT DISTRESS. BREATHING IS EVEN AND UNLABORED. TOLERATING WELL ON ROOM AIR. SAFETY MEASURES IN PLACE WITH BED LOCKED AT LOW POSITION AND SIDE RAILS UP X2. CALL LIGHT IS WITHIN REACH. WILL CONTINUE TO MONITOR THROUGHOUT SHIFT.
--- NOTE | 2021-07-22 19:22 | NUR ---
RN OPENING NOTE PT RESTING IN BED, LYING ON HER R-SIDE, EASILY AROUSABLE, A/OX4. NO C/O PAIN OR DISCOMFORT. NO SOB. AMBULATES AD ALEXIS WITH STEADY GAIT. NO REPORTS OF AKATHISIA/TREMORS. PT IN NO ACUTE DISTRESS. SAFETY MEASURES IN PLACE, BED IN LOWEST LOCKED POSITION, S/R UP X2, CALL LIGHT WITHIN REACH. WILL CONT TO MONITOR.
[2021-07-22 20:00] VITALS: BP 121/71
--- NOTE | 2021-07-23 07:04 | NUR ---
RN CLOSING NOTE PT RESTING IN BED, EASILY AROUSABLE, A/OX4. DENIES ANY PAIN OR DISCOMFORT. NO SOB. DENIES AKATHISIA/TREMORS. NO UNTOWARD BEHAVIOR THIS SHIFT. AMBULATES AD ALEXIS WITH STEADY GAIT. OCCASIONALLY GOES DOWN TO SMOKE. NO ACUTE EVENTS DURING THE NIGHT. SAFETY MEASURES MAINTAINED, BED IN LOWEST LOCKED POSITION, S/R UP X2, CALL LIGHT WITHIN REACH. ENDORSED TO NEXT SHIFT NURSE.
[2021-07-23 08:00] VITALS: BP 118/78
[2021-07-23] MEDS: AMLODIPINE 5 MG PO SCH (08:53)
--- NOTE | 2021-07-23 10:00 | NUR ---
RN NOTES FOLLOWED UP WITH PHARMACY. INVESTIGATIONAL MEDS NOT YET AVAILABLE AT THIS TIME.
[2021-07-23] MEDS: INVEST MED Kar XT OR PLACEBO 50/20 MG PO SCH ×2 (10:11→22:00)
[2021-07-23 16:00] VITALS: BP 117/65
[2021-07-23 20:00] VITALS: BP 129/83
--- NOTE | 2021-07-23 20:15 | NUR ---
MS RN Notes Patient was last seen awake in bed resting. Patient's alert and oriented x4. Patient's on 2L of oxygen via nasal cannula with no respiratory distress noted. Patient has a DWAYNE midline gauge #18. Patient's in no acute distress at this time. Safety measures in place: Bed locked, bed alarm on, side rails upx3, and call light within reach of the patient. Will continue to monitor the patient.
--- NOTE | 2021-07-23 20:18 | NUR ---
MS FELIZ Opening Notes Patient was last seen awake in bed resting. Patient's alert and oriented x4. Patient's on 2L of oxygen via nasal cannula with no respiratory distress noted. Patient has a DWAYNE midline gauge #18. Patient's in no acute distress at this time. Safety measures in place: Bed locked, bed alarm on, side rails upx3, and call light within reach of the patient. Will continue to monitor the patient. Addendum: 07/23/21 at 2020 by ASMITA SESAY RN MS RN Opening Notes Disregard last note MS FELIZ Notes Patient was last seen awake in bed resting. Patient's alert and oriented x4. Patient's on 2L of oxygen via nasal cannula with no respiratory distress noted. Patient has a DWAYNE midline gauge #18. Patient's in no acute distress at this time. Safety measures in place: Bed locked, bed alarm on, side rails upx3, and call light within reach of the patient. Will continue to monitor the patient. MS FELIZ Notes Patient was seen sitting in a chair in her room. Patient's alert and oriented x4. Patient's on room air with no respiratory distress noted. No IV access noted due to clinical trial status. Patient's in no acute distress at this time. Safety measures in place: Bed locked, side rails upx2, and call light within reach of the patient. Will continue to monitor the patient.
--- NOTE | 2021-07-23 20:21 | NUR ---
MS RN Opening Notes Patient was seen sitting in a chair in her room. Patient's alert and oriented x4. Patient's on room air with no respiratory distress noted. No IV access noted due to clinical trial status. Patient's in no acute distress at this time. Safety measures in place: Bed locked, side rails upx2, and call light within reach of the patient. Will continue to monitor the patient.
--- NOTE | 2021-07-24 06:43 | NUR ---
MS RN Closing Notes Patient was last seen sleeping in her bed. Patient's alert and oriented x4. Patient's on room air with no respiratory distress noted. No IV access noted due to clinical trial status. Patient's in no acute distress at this time. Safety measures in place: Bed locked, side rails upx2, and call light within reach of the patient. Will endorse care to the day shift nurse.
[2021-07-24 08:00] VITALS: BP 131/85
[2021-07-24] MEDS: AMLODIPINE 5 MG PO SCH (08:33)
[2021-07-24] MEDS: LORAZEPAM 1 MG TABLET FOR AGITATION/ANXIETY PO PRN (09:24)
[2021-07-24] MEDS: INVEST MED Kar XT OR PLACEBO 50/20 MG PO SCH ×2 (10:02→22:00)
[2021-07-24 16:00] VITALS: BP 127/75
--- NOTE | 2021-07-24 19:00 | NUR ---
CUSTOM DESIGNER OPENING NOTE PT AWAKE IN BED A/OX4. NO IV ACCESS IN PLACE DUE TO CLINICAL TRIAL. NO C/O PAIN, AKATHASIA, TREMORS OR AGITATION. BED IN LOWEST POSITION, CALL LIGHT AND TABLE IN LOWEST LOCKED POSITION. WILL CONTINUE WITH PLAN OF CARE.
[2021-07-24 19:57] VITALS: BP 119/70
--- NOTE | 2021-07-25 06:30 | NUR ---
RN CLOSING NOTE PT IS AWAKE IN BED. NO C/O PAIN OR SOB. WILL ENDORSE TO ONCOMING NURSE
--- NOTE | 2021-07-25 07:51 | NUR ---
MS/RN OPENING NOTES RECEIVED PATIENT IN BED, AWAKE, A&O X 4, ON ROOM AIR TOLERATING WELL, NO SOB/DISTRESS NOTED. A CLINICAL TRIAL PATIENT. AMBULATORY. NO IV ACCESS NOTED/ SAFETY PRECAUTIONS IN PLACED: BED ON LOWEST LOCKED POSITION, SIDE RAILS UP X 2, KEPT CALL LIGHT WITHIN EASY REACH. WILL CONTINUE TO MONITOR PATIENT.
[2021-07-25 08:00] VITALS: BP 115/77
[2021-07-25] MEDS: AMLODIPINE 5 MG PO SCH (09:10)
[2021-07-25] MEDS: INVEST MED Kar XT OR PLACEBO 50/20 MG PO SCH ×2 (10:03→21:59)
[2021-07-25 16:00] VITALS: BP 116/76
--- NOTE | 2021-07-25 18:53 | NUR ---
MS/RN CLOSING NOTES PATIENT IN THE ROOM, AWAKE, A&O X 4, ON ROOM AIR TOLERATING WELL, NO SOB/DISTRESS NOTED. A CLINICAL TRIAL PATIENT. AMBULATORY. NO AKATHISIA/TREMOR OR PSYCHIATRIC INSTABILITY NOTED ON THIS SHIFT. NO IV ACCESS. SAFETY PRECAUTIONS IN PLACED: BED ON LOWEST LOCKED POSITION, SIDE RAILS UP X 2, KEPT CALL LIGHT WITHIN EASY REACH. ALL NEEDS MET. WILL ENDORSE TO THE NEXT SHIFT FOR RANDOLPH.
--- NOTE | 2021-07-25 19:45 | NUR ---
MS RN OPENING NOTES RECEIVED PATIENT IN BED, AWAKE, AO X 4, ON ROOM AIR TOLERATING WELL, NO SOB/DISTRESS NOTED. A CLINICAL TRIAL PATIENT. AMBULATORY. NO IV ACCESS. SAFETY PRECAUTIONS IN PLACED: BED ON LOWEST LOCKED POSITION, SIDE RAILS UP X 2, BRAKES ON. CALL LIGHT AND TABLE WITHIN REACH. WILL CONTINUE TO MONITOR
[2021-07-25 20:00] VITALS: BP 121/66
--- NOTE | 2021-07-26 06:43 | NUR ---
MS RN CLOSING NOTES PATIENT IN BED, AWAKE, AO X 4, ON ROOM AIR TOLERATING WELL, NO SOB/DISTRESS NOTED. CLINICAL TRIAL PATIENT. AMBULATORY. NO IV ACCESS. SAFETY PRECAUTIONS IN PLACED: BED ON LOWEST LOCKED POSITION, SIDE RAILS UP X 2, BRAKES ON. CALL LIGHT AND TABLE WITHIN REACH. WILL ENDORSE TO ONCOMING SHIFT.
[2021-07-26 08:00] VITALS: BP 114/62
[2021-07-26] MEDS: AMLODIPINE 5 MG PO SCH (09:07)
[2021-07-26] MEDS: INVEST MED Kar XT OR PLACEBO 50/20 MG PO SCH ×2 (10:09→22:00)
[2021-07-26] MEDS: LORAZEPAM 1 MG TABLET FOR AGITATION/ANXIETY PO PRN (13:19)
[2021-07-26 16:00] VITALS: BP 96/60
--- NOTE | 2021-07-26 19:07 | NUR ---
MS/RN CLOSING NOTES PATIENT IN BED, AWAKE, A&O X 4, ON ROOM AIR TOLERATING WELL, NO SOB/DISTRESS NOTED. A CLINICAL TRIAL PATIENT. AMBULATORY. ALL NEEDS MET. NO IV ACCESS NOTED/ SAFETY PRECAUTIONS IN PLACED: BED ON LOWEST LOCKED POSITION, SIDE RAILS UP X 2, KEPT CALL LIGHT WITHIN EASY REACH. WILL ENDORSE TO THE NEXT SHIFT FOR RANDOLPH.
--- NOTE | 2021-07-26 19:30 | NUR ---
MS RN OPENING NOTE RECEIVED PT AWAKE IN BED. A/O X 4. PT IS STABLE ON ROOM AIR TOLERATING WELL. NO SOB OR S/S OF RESPIRATORY DISTRESS NOTED. PT HAS NO C/O PAIN OR DISCOMFORT AT THIS TIME. NO IV ACCESS DUE TO CLINICAL TRIAL STATUS. SAFETY PRECAUTIONS MAINTAINED. BED IN LOWEST LOCKED POSITION, HOB ELEVATED, SIDE RAILS UP X2. CALL LIGHT AND TABLE WITHIN REACH. WILL CONTINUE WITH PLAN OF CARE.
[2021-07-26 20:00] VITALS: BP 110/47
--- NOTE | 2021-07-27 06:26 | NUR ---
MS RN CLOSING NOTE PT IS IN BED WITH EYES CLOSED, EASY TO AROUSE. A/O X 4. PT IS STABLE ON ROOM AIR TOLERATING WELL. NO SOB OR S/S OF RESPIRATORY DISTRESS NOTED. PT HAS NO C/O PAIN OR DISCOMFORT AT THIS TIME. NO IV ACCESS DUE TO CLINICAL TRIAL STATUS. PT SLEPT FOR 8 HOURS. ALL NEEDS HAVE BEEN MET. SAFETY PRECAUTIONS MAINTAINED AT ALL TIMES. BED IN LOWEST LOCKED POSITION, HOB ELEVATED, SIDE RAILS UP X2. CALL LIGHT AND TABLE WITHIN REACH. WILL ENDORSE TO ONCOMING NURSE FOR RANDOLPH.
--- NOTE | 2021-07-27 07:30 | NUR ---
MS RN OPENING NOTES RECEIVED PT ON BED, AWAKE AND A/O X 4. PT IS STABLE ON ROOM AIR TOLERATING WELL. NO SOB OR S/S OF RESPIRATORY DISTRESS NOTED. PT HAS NO C/O PAIN OR DISCOMFORT AT THIS TIME. NO IV ACCESS DUE TO CLINICAL TRIAL STATUS. SAFETY MEASURES IN PLACED. BED IN LOWEST LOCKED POSITION, HOB ELEVATED, SIDE RAILS UP X2. CALL LIGHT AND TABLE WITHIN REACH. WILL CONTINUE TO MONITOR..
[2021-07-27 08:00] VITALS: BP 133/84
[2021-07-27] MEDS: AMLODIPINE 5 MG PO SCH (09:15)
[2021-07-27] MEDS: INVEST MED Kar XT OR PLACEBO 50/20 MG PO SCH ×2 (10:00→21:54)
[2021-07-27 16:00] VITALS: BP 113/62
--- NOTE | 2021-07-27 19:20 | NUR ---
MS RN CLOSING NOTES PT ON BED, AWAKE AND A/O X 4. PT IS STABLE ON ROOM AIR TOLERATING WELL. NO SOB OR S/S OF RESPIRATORY DISTRESS NOTED. PT HAS NO C/O PAIN OR DISCOMFORT AT THIS TIME. NO IV ACCESS DUE TO CLINICAL TRIAL STATUS. SAFETY MEASURES IN PLACED. BED IN LOWEST LOCKED POSITION, HOB ELEVATED, SIDE RAILS UP X2. CALL LIGHT AND TABLE WITHIN REACH. WILL ENDORSE TO NEXT SHIFT FOR R[place]OLPH.
--- NOTE | 2021-07-27 19:30 | NUR ---
received patient sitting in a chair at the bedside alert and smiling\ noted she is rocking foward and backward speech clear
[2021-07-27 20:00] VITALS: BP 113/68
--- NOTE | 2021-07-28 04:18 | NUR ---
ENDING NOTES: SLEPT THRU THE NIGHT WHEN AWAKE SHE IS ALERT AND IN CHEERFUL SPIRITS COOPERATIVE AND SMILING AMBULATES IN THE ROOM nOTED WHEN SHE SITES IN THE CHAIR SHE ROKS FORWARD AND BACKWARD
--- NOTE | 2021-07-28 07:12 | NUR ---
MS RN OPENING NOTES RECEIVED PT ON BED, AWAKE AND A/O X 4. PT IS STABLE ON ROOM AIR TOLERATING WELL. NO SOB OR S/S OF RESPIRATORY DISTRESS NOTED. PT HAS NO C/O PAIN OR DISCOMFORT AT THIS TIME. NO UNTOWARD BEHAVIOR NOTED AT THIS TIME. SAFETY MEASURES IN PLACED. BED IN LOWEST LOCKED POSITION, HOB ELEVATED, SIDE RAILS UP X2. CALL LIGHT AND TABLE WITHIN REACH. WILL CONTINUE TO MONITOR.
[2021-07-28 08:00] VITALS: BP 130/76
[2021-07-28] MEDS: AMLODIPINE 5 MG PO SCH (09:13)
[2021-07-28] MEDS: INVEST MED Kar XT OR PLACEBO 50/20 MG PO SCH ×2 (10:09→22:00)
[2021-07-28 16:00] VITALS: BP 138/83
--- NOTE | 2021-07-28 18:42 | NUR ---
MS RN CLOSING NOTES PATIENT ON BED, AWAKE AND A/O X 4. PT IS STABLE ON ROOM AIR TOLERATING WELL. NO SOB OR S/S OF RESPIRATORY DISTRESS NOTED. PT HAS NO C/O PAIN OR DISCOMFORT AT THIS TIME. NO UNTOWARD BEHAVIOR NOTED AT THIS TIME. SAFETY MEASURES IN PLACED. BED IN LOWEST LOCKED POSITION, HOB ELEVATED, SIDE RAILS UP X2. CALL LIGHT AND TABLE WITHIN REACH. WILL ENDORSE PATIENT TO NEXT SHIFT FOR CONTINUITY OF CARE.
--- NOTE | 2021-07-28 19:36 | NUR ---
IN BED ALERT AND ORIENTATED SMILING NO C/O MOVING ALL ETREMITIES
[2021-07-28 19:37] VITALS: BP 134/66
[2021-07-28 20:00] VITALS: BP 132/75
[2021-07-29 08:00] VITALS: BP 121/80
--- NOTE | 2021-07-29 08:30 | NUR ---
MS RN NOTE PATIENT ACCOMPANIED BY DR. VIRGEN'S NURSE FOR THE BLOOD DRAW/ PROCEDURE. IN STABLE CONDITION.
--- NOTE | 2021-07-29 08:55 | NUR ---
MS RN NOTE RECEIVED A CALL FROM DR. VIRGEN WITH TELEPHONE ORDER FOR DISCHARGE AFTER PROCEDURE. ORDERS READ BACK AND VERIFIED WITH ORDERS MADE AND CARRIED OUT. PATIENT STILL OUT OF UNIT FOR PROCEDURE.
[2021-07-29] MEDS: AMLODIPINE 5 MG PO SCH (09:00)
[2021-07-29] MEDS: INVEST MED Kar XT OR PLACEBO 50/20 MG PO SCH (10:00)
--- NOTE | 2021-07-29 10:35 | NUR ---
MS RN NOTE PATIENT CAME BACK FROM MD APPOINTMENT/ PROCEDURE. HEALTH TEACHING DONE REGARDING MD ORDERS. VERBALIZED UNDERSTANDING AND APPRECIATION. PATIENT ACCOMPANIED BY NURSE FROM DR. VIRGEN'S OFFICE. PATIENT DISCHARGED ORDERED. IN STABLE CONDITION. ENDORSED ACCORDINGLY.
== END 2021-07-29 10:35 | disposition home or self-care (01) | DRG 951 ==
LOC: MED 14:20 → GPS 06-21 20:31 → GPSOV 07-14 20:46 → MED 07-15 07:45
PROVIDERS: ADMIT Psychiatry & Neurology Psychiatry; ATTEND Psychiatry & Neurology Psychiatry
DX: Z00.6 Encounter for examination for normal comparison and control in clinical research program (principal); F20.0 Paranoid schizophrenia; Z79.899 Other long term (current) drug therapy; F41.9 Anxiety disorder, unspecified; G47.00 Insomnia, unspecified; Z90.710 Acquired absence of both cervix and uterus; Z87.891 Personal history of nicotine dependence
CPT/HCPCS: 87081-TC; G0378